=== PATIENT | male | born 1960 | race Caucasian/White ===

== ENCOUNTER → 2016-10-15 | Outpatient (REF) | payer MEDICARE ==
[2016-10-15 18:17] LABS: ALBUMIN 3.8 GM/DL (3.2-5.2); ALBUMIN/GLOBULIN RATIO 1.19 (1.00-1.93); ALKALINE PHOSPHATASE 95 U/L (45-117); ALT/SGPT 33 U/L (12-78); ANION GAP 9 MEQ/L (8-16); AST/SGOT 17 U/L (15-37); BILIRUBIN,TOTAL 0.5 MG/DL (0.2-1.0); BLOOD UREA NITROGEN 15 MG/DL (7-18); CALCIUM LEVEL 8.4 MG/DL (8.5-10.1); CARBON DIOXIDE LEVEL 30 MEQ/L (21-32); CHLORIDE LEVEL 99 MEQ/L (98-107); CHOLESTEROL LEVEL 231 MG/DL (<200); CREATININE FOR GFR 0.87 MG/DL (0.70-1.30); GLOMERULAR FILTRATION RATE > 60.0 (>56); GLUCOSE, FASTING 92 MG/DL (70-105); POTASSIUM SERUM 4.8 MEQ/L (3.5-5.1); SODIUM LEVEL 138 MEQ/L (136-145); TRIGLYCERIDES LEVEL 153 MG/DL (<150); URIC ACID 7.9 MG/DL (3.5-7.2)
[2016-10-15 19:42] LABS: MEAN CORPUSCULAR HEMOGLOBIN 36.3 pg (27.0-33.0); MEAN CORPUSCULAR HGB CONC 32.7 g/dl (32.0-36.5); MEAN CORPUSCULAR VOLUME 110.9 fl (80.0-96.0); RED CELL DISTRIBUTION WIDTH 13.6 % (11.5-14.5); WHITE BLOOD COUNT 7.3 K/mm3 (4.0-10.0)
== END ==
LOC: M SFHCCLAY 13:45
PROVIDERS: ATTEND Nurse Practitioner
DX: M79.675 Pain in left toe(s) (principal); Z79.899 Other long term (current) drug therapy

== ENCOUNTER → 2016-10-15 | Outpatient (CLI) | payer MEDICARE ==
[~2016-10-15] MED LIST: ALLO100T; AMLO5TAB2; LISI40TAB
--- NOTE | 2016-10-15 16:07 | REP ---
Left foot series: Four views: History: Pain in the left toes. No history of trauma. Findings: Four views left foot demonstrate overall normal mineralization. There is cortical irregularity across the mid shaft of the proximal phalanx of the 4th and similarly across the proximal phalanx of the 5th digits suggestive of old or healing fractures of these sites. No bony destructive lesion is seen. Bones, joints, and soft tissues are otherwise unremarkable. Impression: Findings consistent with healed or healing fractures of the proximal phalanges of the 4th and 5th digits. No other significant bony abnormality.
== END ==
LOC: M CLY 13:51
PROVIDERS: ATTEND Nurse Practitioner
DX: M79.675 Pain in left toe(s) (principal); Z79.899 Other long term (current) drug therapy
CPT/HCPCS: 73630; 80053; 80061; 84550; 85027; G0463

== ENCOUNTER → 2016-10-28 | Outpatient (REF) | payer MEDICARE ==
[2016-10-28 17:46] LABS: FOLATE 8.6 NG/ML (>5.4)
== END ==
LOC: M SFHCCAPE 07:10
PROVIDERS: ATTEND Nurse Practitioner
DX: R71.8 Other abnormality of red blood cells (principal); Z79.1 Long term (current) use of non-steroidal anti-inflammatories (NSAID); Z79.899 Other long term (current) drug therapy; Z87.898 Personal history of other specified conditions
CPT/HCPCS: 82306; 82375; 82607; 82668; 82728; 82746; 84425; G0463

== ENCOUNTER 2016-11-09 08:38 | Emergency (ER) | payer MEDICARE ==
[~2016-11-09] VITALS: Ht 188 cm; Wt 144.2 kg
[2016-11-09 08:56] VITALS: BP 128/83
[2016-11-09] MEDS ORDERED: LISI40TAB (09:10)
[2016-11-09] MEDS ORDERED: ALLO100T (09:10)
[2016-11-09] MEDS ORDERED: AMLO5TAB2 (09:10)
--- NOTE | 2016-11-09 10:12 | REP ---
LEFT FOOT SERIES: Four views. HISTORY: Trauma. FINDINGS: Four views of the left foot show overall normal mineralization. Periarticular soft tissues are unremarkable. No fracture seen. IMPRESSION: Negative left foot radiographs. Signed by Chuckie Jeffries MD 11/09/2016 12:17 P
--- NOTE | 2016-11-09 10:12 | REP ---
LEFT TIB/FIB SERIES: Four views. HISTORY: Trauma. FINDINGS: Four views of the left tibia and fibula demonstrate an obliquely oriented fracture through the proximal fibular diaphysis, nondisplaced. No tibial fracture is seen proximally or distally. There is osteoarthritis at the knee. IMPRESSION: 1. Proximal fibular diaphyseal fracture. 2. Knee joint osteoarthritis. Signed by Chuckie Jeffries MD 11/09/2016 12:17 P
--- NOTE | 2016-11-09 10:13 | REP ---
LEFT KNEE SERIES: Five views. HISTORY: Trauma. FINDINGS: Five views of the left knee demonstrate moderate osteoarthritis. Proximal fibular diaphyseal fracture is seen as reported on the TIB/fib study. No additional fracture is seen. There are ossific densities in the knee joint line posteriorly and anteriorly suspicious for loose bodies. IMPRESSION: Osteoarthritic changes moderate in degree with multiple probable loose bodies. No additional fracture seen. Signed by Chuckie Jeffries MD 11/09/2016 12:18 P
--- NOTE | 2016-11-09 11:04 | ED PDOC ---
Post-Departure Follow-Up AT THIS TIME, 2 PEOPLE IN THE ROOM WITH THE PT, FAMILY FRIENDS. CONCUR WITH PT THAT HE DOES HAVE A WALKER AT HOME DUE TO BALANCE PROBLEMS FROM HIS PRIOR TBI. THEY STATE THIS INJURY OCCURRED ON WEDNESDAY, 4 DAYS AGO, WHILE IN THE BATHROOM. PT STATES, "I REMEMBER NOW, I FELL GETTING OUT OF THE TUB." ALL IN AGREEMENT OF TREATMENT PLAN AT THIS TIME, WILL CALL ORTHO TODAY TO SCHEDULE FOLLOW UP. ALL IN AGREEMENT THAT USING THE KNEE IMMOBILIZER AND PT'S OWN WALKER IS THE SAFEST PLAN FOR HIS SYMPTOMS AT THIS TIME. CRUTCHES OR PLACING A SPLINT ON THIS LEG MAY CAUSE PT TO BE MORE UNSTEADY AND LEAD TO MORE FALLS/INJURIES. CANDIE LYN PA-C November 09, 2016 11:04
== END 2016-11-09 11:09 | disposition home or self-care (01) ==
LOC: M ED 10:22
DX: S82.102A Unspecified fracture of upper end of left tibia, initial encounter for closed fracture (principal); Z87.820 Personal history of traumatic brain injury; X58.XXXA Exposure to other specified factors, initial encounter; Y92.89 Other specified places as the place of occurrence of the external cause; Y93.89 Activity, other specified; Y99.9 Unspecified external cause status

== ENCOUNTER → 2016-11-24 | Outpatient (REF) | payer MEDICARE ==
[2016-11-25 11:46] LABS: ALBUMIN 3.9 GM/DL (3.2-5.2); ALBUMIN/GLOBULIN RATIO 1.34 (1.00-1.93); ALKALINE PHOSPHATASE 94 U/L (45-117); ALT/SGPT 31 U/L (12-78); ANION GAP 5 MEQ/L (8-16); AST/SGOT 21 U/L (15-37); BILIRUBIN,TOTAL 0.4 MG/DL (0.2-1.0); BLOOD UREA NITROGEN 19 MG/DL (7-18); CALCIUM LEVEL 9.2 MG/DL (8.5-10.1); CARBON DIOXIDE LEVEL 34 MEQ/L (21-32); CHLORIDE LEVEL 100 MEQ/L (98-107); CREATININE FOR GFR 0.83 MG/DL (0.70-1.30); GLOMERULAR FILTRATION RATE > 60.0 (>56); GLUCOSE, FASTING 94 MG/DL (70-105); POTASSIUM SERUM 4.8 MEQ/L (3.5-5.1); SODIUM LEVEL 139 MEQ/L (136-145); TOTAL PROTEIN 6.8 GM/DL (6.4-8.2); URIC ACID 5.6 MG/DL (3.5-7.2)
== END ==
LOC: M SFHCCLAY 13:45
PROVIDERS: ATTEND Nurse Practitioner
DX: M10.9 Gout, unspecified (principal)
CPT/HCPCS: 73564; 80053; 84550; G0463

== ENCOUNTER → 2016-11-24 | Outpatient (CLI) | payer MEDICARE ==
--- NOTE | 2016-11-24 15:02 | REP ---
LEFT KNEE, FIVE VIEWS: HISTORY: Pain. COMPARISON: 11/09/2016 There is an oblique nondisplaced fracture of the proximal fibula. There is no dislocation. There is narrowing of the joint spaces. Ossified densities are present in the knee joint space, likely representing loose bodies. IMPRESSION: 1. Nondisplaced fracture of the proximal fibula. 2. Degenerative change as described above.
== END ==
LOC: M CLY 14:06
PROVIDERS: ATTEND Nurse Practitioner
DX: S82.832A Other fracture of upper and lower end of left fibula, initial encounter for closed fracture (principal); M17.12 Unilateral primary osteoarthritis, left knee; X58.XXXA Exposure to other specified factors, initial encounter; Y92.9 Unspecified place or not applicable; Y93.9 Activity, unspecified; Y99.8 Other external cause status

== ENCOUNTER → 2017-03-02 | Outpatient (CLI) | payer MEDICARE ==
[2017-03-02 13:10] LABS: ALBUMIN 3.5 GM/DL (3.2-5.2); ALBUMIN/GLOBULIN RATIO 1.03 (1.00-1.93); ALKALINE PHOSPHATASE 98 U/L (45-117); ALT/SGPT 43 U/L (12-78); ANION GAP 10 MEQ/L (8-16); AST/SGOT 21 U/L (15-37); BILIRUBIN,TOTAL 0.5 MG/DL (0.2-1.0); BLOOD UREA NITROGEN 16 MG/DL (7-18); CALCIUM LEVEL 8.9 MG/DL (8.5-10.1); CARBON DIOXIDE LEVEL 30 MEQ/L (21-32); CHLORIDE LEVEL 99 MEQ/L (98-107); CREATININE FOR GFR 0.79 MG/DL (0.70-1.30); GLOMERULAR FILTRATION RATE > 60.0 (>56); GLUCOSE, FASTING 127 MG/DL (70-105); POTASSIUM SERUM 4.8 MEQ/L (3.5-5.1); SODIUM LEVEL 139 MEQ/L (136-145); TOTAL PROTEIN 6.9 GM/DL (6.4-8.2)
[2017-03-02 13:12] LABS: ADD MANUAL DIFFER YES; DIFF SLIDE NUMBER 232; MEAN CORPUSCULAR HEMOGLOBIN 36.8 pg (27.0-33.0); MEAN CORPUSCULAR HGB CONC 33.8 g/dl (32.0-36.5); MEAN CORPUSCULAR VOLUME 108.8 fl (80.0-96.0); PLATELET COUNT, AUTOMATED 212 k/mm3 (150-450); RED CELL DISTRIBUTION WIDTH 13.1 % (11.5-14.5); WHITE BLOOD COUNT 6.3 K/mm3 (4.0-10.0)
[2017-03-02 13:17] LABS: FOLATE 17.3 NG/ML (>5.4); VITAMIN B12 LEVEL 451 PG/ML (247-911)
[2017-03-02 14:40] LABS: EOSINOPHILS 1 % (0-5)
[2017-03-02 14:41] LABS: ANISOCYTOSIS 2+
[2017-03-02 15:06] LABS: ERYTHROCYTE SEDIMENTATION RATE 2 mm/hr (0-20)
[2017-03-04 14:24] LABS: ALBUMIN 3.93 GM/DL (3.29-5.55); ALBUMIN % 56.9 % (55.8-66.1); GAMMA GLOBULIN % 12.1 % (11.1-18.8)
[2017-03-05 08:07] LABS: SJOGREN'S ANTI SS-A <0.2 AI (0.0-0.9); SJOGREN'S ANTI SS-B <0.2 AI (0.0-0.9); VITAMIN E LEVEL 9.1 mg/L (5.3-17.5)
== END ==
LOC: M WUC 09:57
PROVIDERS: ATTEND Psychiatry & Neurology Neurology
DX: G62.9 Polyneuropathy, unspecified (principal); Z79.899 Other long term (current) drug therapy

== ENCOUNTER → 2017-03-29 | Outpatient (REF) | payer MEDICARE | LOC: M LAB REF 11:14 | PROVIDERS: ATTEND Neurological Surgery | DX: E66.9 Obesity, unspecified (principal) ==

== ENCOUNTER → 2017-08-23 | Outpatient (REF) | payer MEDICARE ==
[2017-08-23 16:40] LABS: BASO # 0.1 10^3/uL (0.0-0.2); BASO % 0.8 % (0.0-1.0); EOS # 0.2 10^3/uL (0.0-0.50); HEMATOCRIT 57.6 % (42.0-52.0); HEMOGLOBIN 18.9 g/dl (14.0-18.0); IMMATURE GRANULOCYTE % 0.3 % (0-3.0); LYMPH # 2.1 10^3/uL (1.5-4.5); LYMPH % 24.2 % (24.0-44.0); MEAN CORPUSCULAR HEMOGLOBIN 35.4 pg (27.0-33.0); MEAN CORPUSCULAR HGB CONC 32.8 g/dl (32.0-36.5); MEAN CORPUSCULAR VOLUME 107.9 fl (80.0-96.0); MONO # 0.6 10^3/uL (0.0-0.8); MONO % 6.4 % (0.0-5.0); NEUTROPHILS # 5.8 10^3/uL (1.8-7.7); NEUTROPHILS % 66.3 % (36.0-66.0); PLATELET COUNT, AUTOMATED 217 10^3/uL (150-450); RED BLOOD COUNT 5.34 10^6/uL (4.30-6.10); RED CELL DISTRIBUTION WIDTH 14.3 % (11.5-14.5); WHITE BLOOD COUNT 8.7 10^3/uL (4.0-10.0)
[2017-08-23 17:31] LABS: VITAMIN B12 LEVEL 295 PG/ML
[2017-08-23 17:33] LABS: FOLATE 11.5 NG/ML
[2017-08-23 17:35] LABS: ALBUMIN 3.4 GM/DL (3.2-5.2); ALKALINE PHOSPHATASE 80 U/L (45-117); ALT/SGPT 32 U/L (12-78); ANION GAP 7 MEQ/L (8-16); AST/SGOT 19 U/L (7-37); BILIRUBIN,TOTAL 0.3 MG/DL (0.2-1.0); BLOOD UREA NITROGEN 18 MG/DL (7-18); CALCIUM LEVEL 8.1 MG/DL (8.5-10.1); CARBON DIOXIDE LEVEL 32 MEQ/L (21-32); CHLORIDE LEVEL 98 MEQ/L (98-107); CHOLESTEROL LEVEL 184 MG/DL (<200); CHOLESTEROL RISK RATIO 4.181 (<5); CREATININE FOR GFR 0.88 MG/DL (0.70-1.30); GLOMERULAR FILTRATION RATE > 60.0 (>56); GLUCOSE, FASTING 169 MG/DL (70-100); HDL CHOLESTEROL 44 MG/DL (>40); LDL CHOLESTEROL 114.8 MG/DL (<100); MAGNESIUM LEVEL 1.7 MG/DL (1.8-2.4); NON-HDL-C 140 MG/DL; POTASSIUM SERUM 4.7 MEQ/L (3.5-5.1); SODIUM LEVEL 137 MEQ/L (136-145); TOTAL PROTEIN 6.8 GM/DL (6.4-8.2); TRIGLYCERIDES LEVEL 126 MG/DL (<150); URIC ACID 6.3 MG/DL (3.5-7.2)
== END ==
LOC: M SFHCCAPE 08:31
DX: I10 Essential (primary) hypertension (principal); E78.4 Other hyperlipidemia; M10.9 Gout, unspecified; Z87.898 Personal history of other specified conditions
CPT/HCPCS: 82746

== ENCOUNTER → 2017-09-02 | Outpatient (REF) | payer MEDICARE ==
[2017-09-02 18:06] LABS: ESTIMATED AVERAGE GLUCOSE 128 MG/DL (60-110); HEMOGLOBIN A1c 6.1 %
== END ==
LOC: M SFHCCAPE 08:48
DX: R73.01 Impaired fasting glucose (principal)
CPT/HCPCS: 83036

== ENCOUNTER → 2017-09-22 | Outpatient (REF) | payer MEDICARE ==
[2017-09-22 15:28] LABS: CARBOXYHEMOGLOBIN 6.2 % (0.0-1.5)
== END ==
LOC: M LAB REF 15:14
DX: D75.1 Secondary polycythemia (principal)
CPT/HCPCS: 82375

== ENCOUNTER → 2018-09-28 | Outpatient (REF) | payer MEDICARE ==
[~2018-09-28] MED LIST changes: -AMLO5TAB2; +AMLO5TAB6; +LISI40TA; -LISI40TAB; +SM M250T PO; +XARE20TA
== END ==
LOC: M SFHCCLAY 15:56
PROVIDERS: ATTEND Family Medicine
DX: D75.1 Secondary polycythemia (principal); I10 Essential (primary) hypertension; Z53.8 Procedure and treatment not carried out for other reasons

== ENCOUNTER → 2018-09-29 | Outpatient (REF) | payer MEDICARE ==
[~2018-09-29] MED LIST changes: -SM M250T PO
[2018-09-29 18:26] LABS: BASO # 0.1 10^3/uL (0.0-0.2); BASO % 0.6 % (0.0-1.0); EOS # 0.2 10^3/uL (0.0-0.50); HEMATOCRIT 63.1 % (42.0-52.0); LYMPH # 1.9 10^3/uL (1.5-4.5); LYMPH % 21.6 % (24.0-44.0); MEAN CORPUSCULAR HEMOGLOBIN 35.2 pg (27.0-33.0); MEAN CORPUSCULAR HGB CONC 32.2 g/dl (32.0-36.5); MEAN CORPUSCULAR VOLUME 109.5 fl (80.0-96.0); MONO # 0.6 10^3/uL (0.0-0.8); MONO % 7.2 % (0.0-5.0); NEUTROPHILS % 68.1 % (36.0-66.0); PLATELET COUNT, AUTOMATED 182 10^3/uL (150-450); RED BLOOD COUNT 5.76 10^6/uL (4.30-6.10); WHITE BLOOD COUNT 8.8 10^3/uL (4.0-10.0)
[2018-09-29 18:28] LABS: ALBUMIN 3.5 GM/DL (3.2-5.2); ALT/SGPT 27 U/L (12-78); BILIRUBIN,TOTAL 0.5 MG/DL (0.2-1.0); BLOOD UREA NITROGEN 19 MG/DL (7-18); CALCIUM LEVEL 8.5 MG/DL (8.5-10.1); CARBON DIOXIDE LEVEL 35 MEQ/L (21-32); CHLORIDE LEVEL 100 MEQ/L (98-107); CREATININE FOR GFR 0.97 MG/DL (0.70-1.30); GLOMERULAR FILTRATION RATE > 60.0 (>56); GLUCOSE, FASTING 111 MG/DL (70-100); POTASSIUM SERUM 4.8 MEQ/L (3.5-5.1); SODIUM LEVEL 138 MEQ/L (136-145); TOTAL PROTEIN 6.8 GM/DL (6.4-8.2)
[2018-09-29 18:51] LABS: HEMOGLOBIN 20.3 g/dl (13.5-17.5)
== END ==
LOC: M SFHCCLAY 11:16
PROVIDERS: ATTEND Family Medicine
DX: D75.1 Secondary polycythemia (principal); I10 Essential (primary) hypertension

== ENCOUNTER 2018-10-01 12:44 | Emergency (ER) | payer MEDICARE ==
[~2018-10-01] VITALS: Ht 188 cm; Wt 160.9 kg
[~2018-10-01 12:44] MED LIST changes: -XARE20TA
[2018-10-01 12:45] VITALS: BP 126/84
[2018-10-01] MEDS ORDERED: XARE20TA (13:01)
[2018-10-07] MEDS ORDERED: SM M250T PO (08:08)
== END 2018-10-01 13:31 | disposition left against medical advice (07) ==
LOC: M ED 12:44
DX: D75.1 Secondary polycythemia (principal); I10 Essential (primary) hypertension; I69.354 Hemiplegia and hemiparesis following cerebral infarction affecting left non-dominant side; Z87.891 Personal history of nicotine dependence; Z79.01 Long term (current) use of anticoagulants

== ENCOUNTER → 2018-11-11 | Outpatient (CLI) | payer MEDICARE ==
[~2018-11-11] MED LIST changes: +SM M250T PO; +XARE20TA
--- NOTE | 2018-11-11 16:14 | REP ---
Complete abdominal sonography: History: Polycythemia. Sonographic findings: Scanning through right upper quadrant of the abdomen demonstrates large immobile 2.0 cm gallstone in the neck of the gallbladder. The gallbladder wall is slightly thickened and echogenic. Common bile duct is normal measuring 0.4 cm in greatest diameter. Mild fatty infiltration of the liver is seen. There is no focal liver lesion. Limited views of the pancreas show no abnormality. A normal size spleen is noted measuring 11.1 cm in greatest diameter. No focal splenic lesion is seen. There is no evidence of ascites. Normal caliber aorta is seen. Renal cortical echogenicity pattern is normal and contours are smooth. The right kidney measures 13.3 x 7.1 x 7.1 cm. Left renal dimensions are 11.3 x 5.4 x 6.3 cm. Impression: Cholelithiasis. Large gallstone near the neck of the gallbladder. Mildly echogenic slightly thickened gallbladder wall. There is evidence of mild fatty infiltration of the liver. Otherwise negative. Electronically Signed by Chuckie Jeffries MD 11/11/2018 06:33 P
== END ==
LOC: M RAD 07:51
PROVIDERS: ATTEND Internal Medicine Hematology & Oncology
DX: K80.20 Calculus of gallbladder without cholecystitis without obstruction (principal)

== ENCOUNTER 2018-12-23 16:43 | Inpatient (IN) | payer MEDICARE ==
[~2018-12-23] VITALS: Ht 188 cm; Wt 144.0 kg
[~2018-12-23 16:43] MED LIST changes: -ALLO100T; +ALLO100T PO; -LISI40TA; +LISI40TA PO; -XARE20TA; +XARE20TA PO
[2018-12-23] MEDS ORDERED: POLY2.5S OU (16:57)
[2018-12-23] MEDS ORDERED: AMLO5TAB6 PO (16:57)
[2018-12-23] MEDS ORDERED: AMIL5TAB4 PO (16:57)
[2018-12-23] MEDS ORDERED: FUROSEMIDE 40 MG/4 ML VIAL (J1940) IV ONE (17:30)
[2018-12-23 17:36] LABS: BASO # 0.1 10^3/uL (0.0-0.2); BASO % 0.6 % (0.0-1.0); EOS % 0.3 % (0.0-3.0); HEMATOCRIT 52.2 % (42.0-52.0); LYMPH # 1.3 10^3/uL (1.5-4.5); LYMPH % 13.1 % (24.0-44.0); MEAN CORPUSCULAR HGB CONC 30.7 g/dl (32.0-36.5); MEAN CORPUSCULAR VOLUME 110.8 fl (80.0-96.0); MONO # 0.7 10^3/uL (0.0-0.8); MONO % 6.8 % (0.0-5.0); NEUTROPHILS # 7.6 10^3/uL (1.8-7.7); NEUTROPHILS % 78.9 % (36.0-66.0); PLATELET COUNT, AUTOMATED 247 10^3/uL (150-450); RED BLOOD COUNT 4.71 10^6/uL (4.30-6.10); WHITE BLOOD COUNT 9.7 10^3/uL (4.0-10.0)
[2018-12-23 17:47] LABS: INR 1.61; PROTHROMBIN TIME 18.9 SECONDS (11.8-14.0)
--- NOTE | 2018-12-23 17:50 | REP ---
Clinical: Cough and dyspnea. Comparison: 04/15/2007. Findings: Cardiomegaly is appreciated. Mild interstitial edema cannot be excluded. No focal consolidation or effusion. No pneumothorax. Skeletal structures intact. Impression: Cardiomegaly. Cannot exclude mild interstitial edema. No focal consolidation. Electronically Signed by Lorenzo Ronquillo MD 12/23/2018 05:42 P
[2018-12-23 18:29] LABS: ALBUMIN 2.9 GM/DL (3.2-5.2); ALT/SGPT 330 U/L (12-78); BILIRUBIN,DIRECT 0.2 MG/DL (0.0-0.2); BILIRUBIN,TOTAL 0.7 MG/DL (0.2-1.0); BLOOD UREA NITROGEN 34 MG/DL (7-18); CALCIUM LEVEL 7.9 MG/DL (8.5-10.1); CARBON DIOXIDE LEVEL 35 MEQ/L (21-32); CHLORIDE LEVEL 95 MEQ/L (98-107); CK-MB VALUE MASS 2.8 NG/ML (<3.6); CPK CREATINE PHOSPHOKINASE 162 U/L (39-308); CREATININE FOR GFR 1.58 MG/DL (0.70-1.30); GLOMERULAR FILTRATION RATE 48.5 (>56); GLUCOSE, FASTING 107 MG/DL (70-100); MB/CK RELATIVE INDEX 1.73 (< OR =4); NT-PRO BNP 2960 PG/ML (<125); POTASSIUM SERUM 6.6 MEQ/L (3.5-5.1); SODIUM LEVEL 132 MEQ/L (136-145); TROPONIN I 0.09 NG/ML (< 0.10)
[2018-12-23] MEDS ORDERED: CALCIUM GLUCONATE 1,000 MG in D5W MINI-BAG PLUS 100 ML IV ONE (21:00)
[2018-12-23] MEDS: POLYTRIM OPTH DROPS 10ML OU SCH (21:00)
[2018-12-23] MEDS ORDERED: IPRATROPIUM 0.5MG/ALBUTEROL 2.5MG INH SOL UD 3ML (DUONEB)(J7620) NEB PRN (21:15)
[2018-12-23] MEDS ORDERED: LOSA50TA88 PO (21:27)
[2018-12-23] MEDS ORDERED: MEROPENEM INJ 1 GM in APPROPRIATE DILUENT 1 EA IV SCH (21:45)
[2018-12-23] MEDS ORDERED: HEPARIN SOD (PORCINE) 5000 UNITS/ML VIAL SC SCH (21:45)
[2018-12-23] MEDS ORDERED: VANCOMYCIN HCL 1,000 MG, VIAL MATE ADAPTER 1 EACH in D5W 250 ML IV ONE (22:00)
--- NOTE | 2018-12-23 22:16 | HPEPDOC ---
[facility] Medical History & Physical Date of Admission Dec 23, 2018 Date of Service: Dec 23, 2018 History and Physical PCP: Harry CHIEF COMPLAINT: Shortness of breath HISTORY OF PRESENT ILLNESS: Patient is a 58-year-old man with a history of a TBI who presented with cyanosis. The patient at the time of my exam has some fairly garbled speech appears encephalopathic sleeping arousable to verbal stimuli but then quickly falling asleep again answering yes or no questions but otherwise not following specific commands and mostly incomprehensible speech. A provider for that this is the patient's baseline however I'm not so sure. As such wasn't history is obtained from a provider in review of the medical record. patient when asked specifically denies weight loss, hair loss, headache, visual changes, chest pain, nausea, vomiting, diarrhea, abdominal pain, muscle aches, worsening arthritis, change in mood]. He tells me he is feeling better at this time PAST MEDICAL HISTORY: 1. Obstructive sleep apnea and noncompliant with CPAP. 2. COPD. 3. Hepatitis C. 4. Tobacco abuse 6. Erectile dysfunction 7. Left lower extremity DVT on anticoagulation 8. TBI with residual ataxia 9. Hypertension 10. Alcohol abuse HOME MEDICATIONS: Please see below. ALLERGIES: Please see below PAST SURGICAL HISTORY: 1. Left knee surgery 2008. 2. Umbilical hernia. 3. Right rotator cuff surgery 4. Left rotator cuff surgery 5. Eye surgery for diplopia. SOCIAL HISTORY: Lives with: Unable to be obtained, Employment: Unable to be obtained, Tobacco use: Active smoker. ETOH: Active alcohol use, Illicit drug use: Unable to be obtained, Tattoos done unprofessionally: Unable to be obtained, CODE STATUS: For code no previous directives on file unable to be addressed at this time FAMILY HISTORY:Reviewed and noncontributory REVIEW OF SYSTEMS: 10 systems reviewed and negative other than HPI PHYSICAL EXAMINATION: VITAL SIGNS: Temperature 98.4, pulse 86, respiratory rate 26, blood pressure 143/81, pulse oximetry 91 % on 6 L nasal cannula GENERAL: Disheveled morbidly obese malodorous man sitting up in a stretcher disoriented providing yes or no answers not following commands appears tachypnic and lethargic] HEENT: Moist mucous membranes, difficult to assess for elevation in CVP secondary to body habitus CARDIOVASCULAR: S1 S2 regular no additional heart sounds appreciated, distant secondary to body habitus. RESPIRATORY: Bibasilar Rales prolonged expiratory phase no audible wheeze dista nt secondary to body habitus.] ABDOMINAL: Bowel sounds present abdomen soft and obese with pitting edema above the waist EXTREMITIES: Gross anasarca, chronic venous stasis changes pretibial hyperpigme ntation NEUROLOGICAL: Patient does not cooperate with testing PSYCHOLOGICAL: Unable to be tested LABORATORY DATA: See below. MICROBIOLOGY: Please see below. IMAGING: Chest x-ray:Cardiomegaly. Cannot exclude mild interstitial edema. No focal consolidation ASSESSMENT & PLAN: This is a 58-year-old man with acute on chronic hypercarbic respiratory failure. PROBLEMS: 1. Acute respiratory failure: Acute on chronic hypercarbic as well as an element of hypoxic. Unable to obtain detailed history at this time. Given his exam I certainly of concern for decompensated congestive heart failure. As such will be admitted to medical intensive care unit I will start him on BiPAP recheck arterial blood gas monitor him on telemetry trend his troponin. I spoke with Dr. Boyle of critical care for an inspector of dredging consultation. Help was greatly appreciated. Given his history of tobacco abuse who provided with nebulizer treatments I's less suspicion for decompensated COPD in the setting and as such we'll hold off on any steroids. I will monitor and trend his BNP. Hopefully catheter placed and begin aggressive IV diuresis and monitoring his renal function and electrolytes. Patient chronically anticoagulated no suspicion for PE at this time. He'll be nothing by mouth on BiPAP 2. Acute renal failure: Possibly secondary to a cardiorenal syndrome given his gross anasarca we'll begin aggressive diuresis send urine electrolytes check a renal ultrasound and reevaluate after diuresis. We'll check a UA with reflex urine culture and have a Finney catheter placed. I will hold his allopurinol as well as losartan 3. Hyperkalemia: We will hold his losartan possibly secondary to acute renal failure, I'll provide him with IV calcium gluconate check an EKG and provide aggressive diuresis and recheck his BMP within 6 hours monitor him on telemetry 4. Hypertension: I'm holding his losartan continue with amlodipine with holding parameters monitor in the medical intensive care unit 5. Lower extremity DVT: Continue with his Xarelto 6. Hepatitis C: Chronic and to do appear acutely worse at this time we'll check a liver ultrasound trend daily. May be secondary to hepatic congestion as well 7. Lower extremity wound: We'll cover with empiric vancomycin and ceftriaxone check a MRSA screen of the naris my suspicion for sepsis and CHF secondary to this is lower we'll check a pro-calcitonin. 8. Gout: Hold allopurinol the setting of acute renal failure 9. Obstructive sleep apnea: History of noncompliance 10. Polycythemia: Secondary to tobacco abuse as well as noncompliance with OSIRIS mild at this time 11. Macrocytosis will check folate and B12 level DVT PROPHYLAXIS: Xarelto DISPOSITION: Admitted to medical intensive care unit given his degree of respiratory failure prognosis is guarded Vital Signs Vital Signs Date Time Temp Pulse Resp B/P (MAP) Pulse Ox O2 Delivery O2 Flow Rate FiO2 12/23/18 21:08 97.8 12/23/18 20:51 92 60 12/23/18 20:45 89 19 NIPPV (BIPAP/CPAP) 12/23/18 20:30 141/72 (95) 12/23/18 20:00 15.0 Laboratory Data Labs 24H Laboratory Tests 2 12/23/18 17:23: Immature Granulocyte % (Auto) 0.3, White Blood Count 9.7, Red Blood Count 4.71, Hemoglobin 16.0, Hematocrit 52.2H, Mean Corpuscular Volume 110.8H, Mean Corpuscular Hemoglobin 34.0H, Mean Corpuscular Hemoglobin Concent 30.7L, Red Cell Distribution Width 14.5, Platelet Count 247, Neutrophils (%) (Auto) 78.9H, Lymphocytes (%) (Auto) 13.1L, Monocytes (%) (Auto) 6.8H, Eosinophils (%) (Auto) 0.3, Basophils (%) (Auto) 0.6, Neutrophils # (Auto) 7.6, Lymphocytes # (Auto) 1.3L, Monocytes # (Auto) 0.7, Eosinophils # (Auto) 0.0, Basophils # (Auto) 0.1, Nucleated Red Blood Cells % (auto) 0.4H, Prothrombin Time 18.9H, Prothromb Time International Ratio 1.61, Anion Gap 2L, Glomerular Filtration Rate 48.5L, Lactic Acid Level 1.6, Calcium Level 7.9L, Aspartate Amino Transf (AST/SGOT) 476H, Alanine Aminotransferase (ALT/SGPT) 330H, Alkaline Phosphatase 116, Total Bilirubin 0.7, Direct Bilirubin 0.2, Total Creatine Kinase 162, Creatine Kinase MB 2.8, Creatine Kinase MB Relative Index 1.73, Troponin I 0.09, QC-Gqz-S-Type Natriuretic Peptide 2960H, Total Protein 7.0, Albumin 2.9L, Albumin/Globulin Ratio 0.71L, Thyroid Stimulating Hormone (TSH) 3.040 12/23/18 17:49: POC pH (Misc Panel) 7.225*L, POC Base Excess (Misc Panel) 5.0H, POC Saturated Percent O2 (Misc) 88L, POC pO2 (Misc Panel) 68.0L, POC pCO2 (Misc Panel) 79.6*H, POC HCO3 (Misc Panel) 33.0H, POC Total CO2 (Misc Panel) 35.0H 12/23/18 20:43: POC pH (Misc Panel) 7.222*L, POC Base Excess (Misc Panel) 10.0H, POC Saturated Percent O2 (Misc) 91L, POC pO2 (Misc Panel) 78.0L, POC pCO2 (Misc Panel) 92.8*H, POC HCO3 (Misc Panel) 38.2H, POC Total CO2 (Misc Panel) 41.0H CBC/BMP Laboratory Tests 12/23/18 17:23 Red Blood Count 4.71, Mean Corpuscular Volume 110.8 H, Mean Corpuscular Hemoglobin 34.0 H, Mean Corpuscular Hemoglobin Concent 30.7 L, Red Cell Distri bution Width 14.5, Neutrophils (%) (Auto) 78.9 H, Lymphocytes (%) (Auto) 13.1 L, Monocytes (%) (Auto) 6.8 H, Eosinophils (%) (Auto) 0.3, Basophils (%) (Auto) 0.6, Neutrophils # (Auto) 7.6, Lymphocytes # (Auto) 1.3 L, Monocytes # (Auto) 0.7, Eosinophils # (Auto) 0.0, Basophils # (Auto) 0.1 Microbiology Microbiology 12/23/18 Blood Culture, Received Pending 12/23/18 Blood Culture, Received Pending Home Medications Scheduled Allopurinol (Allopurinol) 100 Mg Tab, 100 MG PO DAILY Amiloride HCl (Amiloride HCl) 5 Mg Tablet, 5 MG PO DAILY Amlodipine Besylate (Amlodipine Besylate) 5 Mg Tablet, 5 MG PO DAILY Losartan Potassium (Losartan Potassium) 50 Mg Tablet, 50 MG PO DAILY Magnesium (Magnesium) 250 Mg Tablet, 500 MG PO DAILY Polymyxin B Sulf/Trimethoprim (Polymyxin B-Tmp Eye Drops) 10 Ml Drops, 1 DROP OU QID Rivaroxaban (Xarelto) 20 Mg Tab, 20 MG PO DAILY Allergies Coded Allergies: No Known Allergies (Unverified , 10/07/18) A-FIB/CHADSVASC A-FIB History Current/History of A-Fib/PAF?: No SCOTT VALDES MD Dec 23, 2018 22:16
[2018-12-23 22:22] VITALS: BP 168/93
[2018-12-23 22:25] LABS: AMPHETAMINES LEVEL URINE NEGATIVE (NEGATIVE); BARBITURATES URINE NEGATIVE (NEGATIVE); BENZODIAZEPINES URINE NEGATIVE (NEGATIVE); CANNABINOIDS URINE NEGATIVE (NEGATIVE); COCAINE METABOLITE URINE NEGATIVE (NEGATIVE); METHADONE URINE NEGATIVE (NEGATIVE); OPIATES URINE NEGATIVE (NEGATIVE); PHENCYCLIDINE URINE NEGATIVE (NEGATIVE)
[2018-12-23 23:00] VITALS: BP 120/65
[2018-12-23 23:06] LABS: SODIUM,RANDOM URINE 34 MEQ/L
--- NOTE | 2018-12-23 23:11 | PHACANCOPD ---
PHARMACY VANCOMYCIN DOSING Pt Demographics Demographics Patient Age:58 , Weight:165.800 , Gender: male Adjusted Body Weight Date: 12/23/18, Adjusted Body Weight: [115.6] Kg Vancomycin Vancomycin indication: LE WOUND Vancomycin Target Ranges: 10-20 mcg/ml Vancomycin Load Y/N: Yes Load Dose Date Time Vancomycin Load Dose: 2 GM Date: 12/24 Time:12MID Vancomycin Dose Date: 12/23/18. Current Vancomycin Dose: [1 GM Q8H] Intermittent Dosing?: No Labs Labs Laboratory Tests 12/23/18 17:23 Red Blood Count 4.71, Mean Corpuscular Volume 110.8 H, Mean Corpuscular Hemoglobin 34.0 H, Mean Corpuscular Hemoglobin Concent 30.7 L, Red Cell Distribution Width 14.5, Neutrophils (%) (Auto) 78.9 H, Lymphocytes (%) (Auto) 13.1 L, Monocytes (%) (Auto) 6.8 H, Eosinophils (%) (Auto) 0.3, Basophils (%) (Auto) 0.6, Neutrophils # (Auto) 7.6, Lymphocytes # (Auto) 1.3 L, Monocytes # (Auto) 0.7, Eosinophils # (Auto) 0.0, Basophils # (Auto) 0.1 Micro Microbiology 12/23/18 Blood Culture, Received Pending 12/23/18 Blood Culture, Received Pending Creatinine Clearance Date:12/23/18. Creatinine Clearance: [85.3]. Assessment and Plan Maintaining Current Dose?: Yes Reason for dose change: No Dose Change Pharmacist Note Pharmacist Note Date: 12/23/18. Pharmacist note:58 YOM W/ LE WOUND.SCR =1.58,CRCL=85.3,SEQ=669.6KG. ORDERED CEFTRIAXONE 1 gm iv Q24H and Pharmacy dosed Vancomycin. Vanco 2 gram load administered 12/23 evening and will begin 1 gram IV Q8Hour regimen 12/24@0800. First trough is scheduled 12/24@2300(prior to the 4th dose)-will continue to monitor labs and make adjustments as needed [facility]ELSE[facility] Dec 23, 2018 23:11
[2018-12-23 23:50] LABS: ABG BASE EXCESS 5.4 (-2.0-2.0); ABG HCO3 37.7 MEQ/L (22.0-26.0); ABG O2 SATURATION 94.6 % (95.0-99.0); ABG PARTIAL PRESSURE CO2 97.8 mmHg (35.0-45.0); ABG PARTIAL PRESSURE O2 88.3 mmHg (75.0-100.0); ABG STANDARD HCO3 29.2 MEQ/L (22.0-26.0); ABG TOTAL CO2 40.7 MEQ/L (22.0-29.0); ABG pH (ARTERIAL) 7.204 UNITS (7.350-7.450)
[2018-12-23] MEDS: VANCOMYCIN HCL 1,000 MG, VIAL MATE ADAPTER 1 EACH in D5W 250 ML IV SCH (23:56)
[2018-12-23] MEDS: FUROSEMIDE 100 MG/10 ML VIAL (J1940) IV SCH (23:56)
[2018-12-23 23:58] LABS: ALBUMIN 2.9 GM/DL (3.2-5.2); BILIRUBIN,TOTAL 0.6 MG/DL (0.2-1.0); CALCIUM LEVEL 8.2 MG/DL (8.5-10.1); CREATININE FOR GFR 1.57 MG/DL (0.70-1.30); GLOMERULAR FILTRATION RATE 48.9 (>56); POTASSIUM SERUM 5.9 MEQ/L (3.5-5.1); TOTAL PROTEIN 7.4 GM/DL (6.4-8.2)
[2018-12-24] VITALS (43 sets, daily range): BP systolic 93–152; BP diastolic 53–77; O2SAT 83–93
[2018-12-24] MEDS: cefTRIAXone SOD 1 GM in D5W MINI-BAG PLUS 50 ML IV SCH ×2 (01:17→23:13)
[2018-12-24 01:55] LABS: ABG BASE EXCESS 6.9 (-2.0-2.0); ABG HCO3 39.2 MEQ/L (22.0-26.0); ABG O2 SATURATION 92.9 % (95.0-99.0); ABG PARTIAL PRESSURE CO2 97.7 mmHg (35.0-45.0); ABG PARTIAL PRESSURE O2 83.8 mmHg (75.0-100.0); ABG STANDARD HCO3 30.6 MEQ/L (22.0-26.0); ABG TOTAL CO2 42.2 MEQ/L (22.0-29.0); ABG pH (ARTERIAL) 7.221 UNITS (7.350-7.450)
[2018-12-24] MEDS ORDERED: SODIUM BICARBONATE 8.4% INJ 50 ML SYRINGE IV STA (02:04)
[2018-12-24] MEDS ORDERED: ETOMIDATE INJ 20MG/10ML VIAL IV STA ×2 (02:04→02:25)
[2018-12-24] MEDS ORDERED: MIDAZOLAM INJ 2 MG/2 ML VIAL (J2250) As Ordered ONE (02:12)
[2018-12-24] MEDS ORDERED: fentaNYL 100 MCG/2 ML INJECTION (J3010) As Ordered ONE (02:13)
[2018-12-24] MEDS ORDERED: fentaNYL 100 MCG/2 ML INJECTION (J3010) IV ONE (02:15)
[2018-12-24] MEDS ORDERED: MIDAZOLAM INJ 2 MG/2 ML VIAL (J2250) IV ONE (02:15)
[2018-12-24] MEDS ORDERED: PROPOFOL 1,000 MG/100 ML VIAL As Ordered ONE (02:31)
[2018-12-24] MEDS: methylPREDNISolone INJ 40 MG/1 ML VIAL (J2920) IV SCH ×3 (03:40→18:06)
[2018-12-24] MEDS: PROPOFOL 1,000 MG in APPROPRIATE DILUENT 1 EA IV SCH ×9 (03:45→23:14)
[2018-12-24 04:27] LABS: ABG BASE EXCESS 6.2 (-2.0-2.0); ABG HCO3 33.1 MEQ/L (22.0-26.0); ABG O2 SATURATION 93.5 % (95.0-99.0); ABG PARTIAL PRESSURE CO2 56.5 mmHg (35.0-45.0); ABG PARTIAL PRESSURE O2 70.9 mmHg (75.0-100.0); ABG STANDARD HCO3 29.9 MEQ/L (22.0-26.0); ABG TOTAL CO2 34.8 MEQ/L (22.0-29.0); ABG pH (ARTERIAL) 7.385 UNITS (7.350-7.450)
[2018-12-24] MEDS: IPRATROPIUM 0.5MG/ALBUTEROL 2.5MG INH SOL UD 3ML (DUONEB)(J7620) NEB SCH ×4 (04:28→20:27)
[2018-12-24 06:08] LABS: HEMOGLOBIN 15.2 g/dl (13.5-17.5); MEAN CORPUSCULAR HGB CONC 30.4 g/dl (32.0-36.5); MEAN CORPUSCULAR VOLUME 108.7 fl (80.0-96.0); PLATELET COUNT, AUTOMATED 208 10^3/uL (150-450); WHITE BLOOD COUNT 10.4 10^3/uL (4.0-10.0)
[2018-12-24 06:49] LABS: ALBUMIN 2.6 GM/DL (3.2-5.2); BILIRUBIN,TOTAL 0.8 MG/DL (0.2-1.0); CALCIUM LEVEL 7.8 MG/DL (8.5-10.1); CREATININE FOR GFR 1.39 MG/DL (0.70-1.30); GLOMERULAR FILTRATION RATE 56.3 (>56); POTASSIUM SERUM 4.5 MEQ/L (3.5-5.1); TOTAL PROTEIN 6.2 GM/DL (6.4-8.2)
[2018-12-24 06:59] LABS: INR 1.43; PROTHROMBIN TIME 17.2 SECONDS (11.8-14.0)
[2018-12-24 08:33] LABS: ETHYL ALCOHOL (ETHANOL) < 0.003 % (0.000-0.010)
[2018-12-24] MEDS: VANCOMYCIN HCL 1,000 MG, VIAL MATE ADAPTER 1 EACH in D5W 250 ML IV SCH ×2 (09:15→16:20)
[2018-12-24] MEDS: PANTOPRAZOLE 40MG INJ (PROTONIX) (C9113) IV SCH (09:15)
[2018-12-24] MEDS: FUROSEMIDE 100 MG/10 ML VIAL (J1940) IV SCH ×2 (09:15→16:20)
[2018-12-24] MEDS: amLODIPine 5 MG TAB PO SCH (09:16)
[2018-12-24] MEDS: RIVAROXABAN 20 MG TAB (XARELTO) PO SCH (09:16)
[2018-12-24] MEDS: CHLORHEXIDINE GLUCONATE 0.12 % 15ML UDC (PERIDEX ORAL RINSE) MT SCH ×2 (09:16→21:01)
[2018-12-24] MEDS: POLYTRIM OPTH DROPS 10ML OU SCH ×4 (09:20→21:01)
--- NOTE | 2018-12-24 15:01 | RO ---
DATE OF PROCEDURE: 12/24/2018 INDICATION: Hypoxemic and hypercarbic respiratory failure. PREPROCEDURE DIAGNOSIS: CHF exacerbation and respiratory failure. POSTPROCEDURE DIAGNOSIS: CHF exacerbation and respiratory failure. ATTENDING PHYSICIAN: Jocelyne Boyle MD CONSENT: Procedure was performed emergently and consent was implied given the emergent nature of the procedure. PROCEDURE SUMMARY: Time-out was performed. My hands were washed immediately prior to the procedure. The patient was placed on emt including continuous pulse oximetry. Patient received 25 mcg of fentanyl and 2 mg of Versed for a pre-intubation sedation. For intubation, the patient received 30 mg of etomidate. Using a GlideScope and a size 8 endotracheal tube with stylet the patient was intubated on the first pass attempt. The stylet was removed and the cuff balloon was inflated. Appropriate endotracheal tube position was confirmed by direct visualization of vocal cord passage, fogging of the tube, CO2 colorimetric indicator and symmetric breath sounds. The tube was secured at approximately 24 cm at the lips. Post-intubation chest x-ray is pending. [facility]
--- NOTE | 2018-12-24 15:01 | REP ---
Clinical: Status post intubation. Comparison: 12/23/2018. Findings: Endotracheal tube is approximately 2 cm above the bettina. Nasogastric tube courses below left hemidiaphragm. Stable cardiomegaly and findings to suggest pulmonary edema including left lower lobe opacification and pleural effusion. Impression: 1. Endotracheal tube and nasogastric tube as described above. 2. Cardiomegaly with CHF/pulmonary edema including left lower lobe opacity and effusion Electronically Signed by Lorenzo Ronquillo MD 12/24/2018 07:23 A
--- NOTE | 2018-12-24 15:01 | REP ---
Clinical: Hepatitis. Technique: Real time mckee scale ultrasound examination using curved array transducer. Findings: Examination is severely limited due to portable examination and patient's ventilatory assisted requirement. Diffuse fatty infiltration to the liver noted. The pancreas is incompletely evaluated due to interposed bowel gas but visualized portions appear normal. The gallbladder is contracted with multiple gallstones and associated posterior shadowing. No sonographic Mariscal's sign was elicited. No biliary ductal dilatation is noted and the common bile duct measures 3.0 mm diameter. Right kidney is normal in reniform shape without hydronephrosis and measures 15.2 x 6.0 x 6.8 cm. No ascites. Impression: 1. Hepatic steatosis. 2. Cholelithiasis. Electronically Signed by Lorenzo Ronquillo MD 12/24/2018 07:25 A
--- NOTE | 2018-12-24 15:01 | CR ---
DATE OF CONSULTATION: 12/23/2018 HISTORY OF PRESENT ILLNESS: History was obtained from the patient's chart and from other collateral information as the patient had altered mental status and was unable to provide a complete history. Mr. Lopez is a 58-year-old male with a past medical history of hypertension, hepatitis C, alcohol abuse, history of post traumatic brain injury (TBI), possible chronic obstructive pulmonary disease (COPD), history of obstructive sleep apnea (OSIRIS) noncompliant with C-PAP who presented initially with a complaint of increased facial swelling for the past week. The patient also appeared to be more lethargic with altered mental status. On admission to the emergency department (ED), he was noted to be hypoxic on room air, saturating 56%. He was placed initially on nasal cannula oxygen. The patient was titrated up to 6 liters per minute nasal cannula oxygen, but continued to have some episodes of desaturation and was then placed on a Venti mask at 50% FiO2. He continued to have some altered mental status with moaning and mumbling, and continued to be lethargic. He had an arterial blood gas (ABG) done, which showed evidence of acute hypoxemic respiratory failure and acute on chronic hypercarbic respiratory failure. He was then placed on BiPAP and admitted to the intensive care unit (ICU) for further management. The patient was given 40 mg IV Lasix in the emergency department (ED) and has not had a Finney catheter placed yet. PAST MEDICAL/SURGICAL HISTORY: 1. Transient ischemic attack (TIA) with residual ataxia and numbness left-sided. 2. Hypertension. 3. Hepatitis C. 4. Chronic obstructive pulmonary disease (COPD). 5. Alcohol abuse. 6. Obstructive sleep apnea, noncompliant with C-PAP. 7. Fracture in the right leg. 8. Right rotator cuff surgery. 9. Left tibial fracture. 10. Umbilical hernia repair. 11. Left rotator cuff surgery. FAMILY HISTORY: Father with history of renal failure. Mother with history of throat cancer. SOCIAL HISTORY: The patient is a former smoker, quit in 2018, was smoking for 44 years. He reports he has reported history of alcohol abuse and is currently drinking. HOME MEDICATIONS: - allopurinol - losartan - amlodipine - magnesium - Xarelto - amiloride DRUG ALLERGIES: No known allergies. PHYSICAL EXAMINATION: Temperature 97.8, pulse 89, respirations 19, blood pressure 141/72, oxygen saturation 94% on BiPAP at 60% FiO2. GENERAL: The patient is a morbidly obese male is sitting in the stretcher drowsy and lethargic. He is not oriented to place or time currently. Does respond to his name but is not able to converse. HEENT: Normocephalic, atraumatic. Pupils are reactive. He has some crusting around his eyes and appears to have some mild facial swelling. Neck is thick and supple. Unable to appreciate jugular venous distension (JVD)due to body habitus. CARDIOVASCULAR: Regular rate and rhythm. Normal S1, S2. Unable to appreciate murmurs. PULMONARY: Diminished breath sounds bilaterally with crackles. No wheezing noted or rhonchi. ABDOMEN: Obese, grossly anasarcic with pitting edema. The patient appears to have some tenderness to palpation diffusely in the abdomen but no guarding or rebound. EXTREMITIES: Pitting lower extremity edema bilaterally with evidence of chronic venous stasis changes. He does also have some increased erythema and warmth in the lower extremities and there is a superficial wound on his left mccain which is oozing serosanguineous discharge. LABORATORY DATA: White blood count (WBC) 9.7, hemoglobin 16.0, platelets 247. Chemistry: Sodium 132, potassium 6.6, chloride 95, bicarbonate 35, BUN 34, creatinine 1.58, glucose 107, lactic acid 1.6, troponin and CPK normal. BNP 2960. Arterial blood gas (ABG): 7.222, pCO2 of 92.8, pO2 of 78. Chest x-ray showed evidence of pulmonary vascular congestion and some atelectasis in the bases and likely small bilateral pleural effusions. ASSESSMENT/PLAN: Mr. Mackey is a 58-year-old male with a history of hypertension, hepatitis C, possible chronic obstructive pulmonary disease (COPD), obstructive sleep apnea (OSIRIS) noncompliant with C-PAP, history of polycythemia likely secondary to his chronic untreated obstructive sleep apnea (OSIRIS) and also likely OHS, given evidence of some chronic hypercarbic respiratory failure, who presented today with acute hypoxemic respiratory failure and acute on chronic hypercarbic respiratory failure. The patient appears to be grossly anasarcic and fluid overloaded on exam. His x-ray is also consistent with pulmonary edema. His BNP is also elevated. Patient likely with acute hypoxemic and acute on chronic hypercarbic respiratory failure in the setting of acute congestive heart failure (CHF) exacerbation. He does not have any leukocytosis or focal opacities to suggest pneumonia; and while he does have a possible history of chronic obstructive pulmonary disease (COPD), he does not have significant wheezing on exam currently to suggest an acute chronic obstructive pulmonary disease (COPD) exacerbation. Acute hypoxemic respiratory failure and acute on chronic hypercarbic respiratory failure secondary to congestive heart failure (CHF) exacerbation. - The patient was given Lasix in the emergency department (ED), 40 mg IV push. Will followup his urine output after a Finney catheter was placed; and if he does not have appropriate diuresis in the next hour or two, would given an additional 40 mg IV Lasix. - Continue to monitor his ins and outs with Finney catheter for net negative 1.5 liters goal. - Will place the patient on BiPAP with settings of 16/8 at 50% FiO2 with a respiratory rate of 15. Will follow up a repeat arterial blood gas (ABG) in 1 hour and adjust BiPAP settings as needed. If the patient's mental test status does not continue to improve with improvement in his hypercarbia or his ABG also is not improving with NIPPV, then would require intubation at that time. - Continue with DuoNebs every 6 hours. If the patient appears to have more wheezing, can start steroids at that time. - Would get an echocardiogram. Suspect he has a component of diastolic heart failure and also likely pulmonary hypertension due to his chronic untreated obstructive sleep apnea (OSIRIS). Hyperkalemia likely in the setting of congestive heart failure (CHF) exacerbation and mild hyponatremia also likely secondary to fluid overload. - Will followup his electrolytes after diuresis and continue to monitor. The patient has possible acute kidney injury (FRITZ) versus acute kidney injury (FRITZ) on chronic kidney disease (CKD). Continue to monitor his renal function, likely a component of cardiorenal and will improve with diuresis. -The patient likely has localized cellulitis in his lower extremities. Will start him on vancomycin and ceftriaxone. Will check a methicillin-resistant Staphylococcus aureus (MRSA) screen; and if negative, can discontinue the vancomycin at that time. - Will also check blood cultures and urine culture prior to antibiotics. Hx of Deep vein thrombosis (DVT), on xarelto Full code. Total critical care time spent, not including any procedures approximately one hour and 30 minutes MTDD
--- NOTE | 2018-12-24 15:02 | REP ---
Clinical: Acute renal failure. Technique: Real time mckee scale and color evaluation using curved array transducer. Findings: Right kidney is normal in contour, size, echogenicity, and reniform shape without hydronephrosis, nephrolithiasis, cystic or renal mass lesion and measures 14.9 x 6.1 x 7.7 cm. The left kidney is normal in contour, echogenicity, and reniform shape without hydronephrosis, nephrolithiasis, cystic or renal mass lesion and measures 10.9 x 5.4 x 6.6 cm with mildly thinned cortex. Finney catheter in collapsed bladder. Impression: Subtle asymmetry to the bilateral kidneys with findings to suggest my mild left renal atrophic change. No evidence for hydronephrosis bilaterally. Electronically Signed by Lorenzo Ronquillo MD 12/24/2018 09:18 A
--- NOTE | 2018-12-24 15:02 | CCN ---
DATE: 12/24/2018 Patient was seen and examined this morning during bedside rounds. Overnight, the patient was on BiPap for his acute hypoxemic and acute on chronic hypercarbic respiratory failure. His repeat ABG after being on BiPap with the setting of 16 over 8 and FIO2 of 60% showed a repeat ABG with continued respiratory acidosis. He was therefore, changed from BiPap to AVAPS mode for his noninvasive positive pressure ventilation and had a repeat ABG done on the AVAPS. On the AVAPS the patient continued to have persistent respiratory acidosis. No improvement in his hypercarbia. He had also been noted now to be desaturating requiring increasing FIO2 on his noninvasive positive pressure ventilation. Therefore, the decision was made at that time to intubate the patient. The patient was intubated using a GlideScope with a size 8 ET tube on the first pass attempt. Overnight patient was also started on Solu-Medrol for possible COPD exacerbation. This morning, patient's chest x-ray shows worsening of bilateral patchy opacities and there is some concern for ARDS. He has been diuresing well overnight with the Lasix. PHYSICAL EXAMINATION: Temperature 98.3, pulse 72, respirations 22, blood pressure 128/78, O2 sat 92% on 85% FiO2. In 528, out 2 liters, net negative 1.5 liters. General: The patient is morbidly obese, is lying in bed intubated and sedated. The patient is responsive to painful stimuli. HEENT: Normocephalic, atraumatic. Pupils are equal and reactive to light bilaterally. ET tube and OG tube is in place. Neck is supple. Unable to appreciate JVD due to body habitus. Cardiovascular: Regular rate and rhythm. Normal S1-S2. Unable to appreciate any murmurs. Pulmonary: Diminished breath sounds bilaterally with crackles at the bases. No wheezing or rhonchi noted. Abdomen: Obese, soft and does not appear tender to palpation. There is anasarca noted. Lower extremities: Bilateral pitting lower extremity edema and chronic venous stasis changes as well as increased erythema and warmth in the lower extremities with some oozing wounds in his left mccain area. LABORATORY DATA WBC 10.4, hemoglobin 15.2, platelets 208. Chemistry: Sodium 137, potassium 4.5, chloride 94, bicarb 36, BUN 33, creatinine 1.39 and glucose is 97. Repeat troponin is negative. Repeat BMP trending down slightly 1784. AST, ALT are trending down 321 and 301. ABG: pH 7.385, pCO2 of 56.5, pO2 of 70.9. IMAGING: Chest x-ray this morning shows ET tube in place. There is increase in bilateral fluffy opacities and likely small bilateral pleural effusions and possible component of pulmonary vascular congestion. ASSESSMENT AND PLAN: Mr. Mackey is a 58-year-old male with a past medical history of hypertension, hep C, chronic obstructive pulmonary disease (COPD), obstructive sleep apnea (OSIRIS), noncompliant with C-PAP who presented with acute hypoxemic respiratory failure and acute on chronic hypercarbic respiratory failure, likely in this setting of decompensated CHF given evidence of anasarca and elevated BNP on admission. The patient was placed on a noninvasive positive pressure ventilation overnight, but did not have improvement in his hypercarbic respiratory failure and had worsening of his hypoxia. The patient was therefore intubated overnight and placed on mechanical ventilation. His chest x-ray this morning appears to have increased bilateral fluffy opacities despite adequate diuresis suggesting a diagnosis of ARDS vs multifocal PNA. Acute on chronic hypercarbic respiratory failure and acute hypoxemic respiratory failure in the setting decompensated CHF and now acute respiratory distress syndrome (ARDS) vs multifocal PNA although patient has been on antibiotics and has not been febrile with no signifcant leukocytosis. The patient is intubated on PRVC mode. Will increase his PEEP for ARDS and attempt to wean down his FIO2 as tolerated. Continue with the current tidal volume a 500, which is appropriate for his ideal body weight and for ARDS and with a respiratory rate of 22. - Continue with sedation with propofol. Can give versed as needed for agitation and if patient is desynchronous on the ventilator. - Continue with daily ABGs and chest x-rays while intubated. - Continue with vent bundle care with head of bed elevation and chlorhexidine mouthwash. - Continue with diuresis with Lasix 60 mg IV every 6 hours and monitor his ins and outs and daily weights. - continue with Solu-Medrol 40 mg every 8 and DuoNebs every 6 for possible COPD exacerbation. - Troponins were negative times two. Will followup his echo. - Continue with amlodipine for hypertension. Acute renal failure, likely secondary to cardiorenal syndrome given his decompensated CHF. Creatinine is improving with diuresis. Will continue to monitor his creatinine. - Continue to monitor electrolytes and replete as needed. - Continue to hold allopurinol and losartan for now. - Will followup results of his renal ultrasound. Transaminitis, likely secondary to hepatic congestion from his decompensated heart failure. Suspect a component of right-sided heart failure and pulmonary hypertension given his chronic hypoxia from his untreated OSIRIS and possible COPD as evidenced by his chronic polycythemia. - Will followup his liver ultrasound and continue to trend his LFTs. - LFTs are improving. - also patient's friends report hx of heavy alcohol use, approx 12 shots of vodka daily so transaminitis may also be due to alcohol. will monitor for signs of alcohol withdrawal although patient is on propofol. ID- Lower extremity wound and cellulitis. Possible PNA although no fever and no significant leukocytosis. - Continue with vancomycin and ceftriaxone for now. Will followup results of blood cultures and procalcitonin. - Followup MRSA screen and if negative can likely discontinue vancomycin. - Will also check a sputum culture given the worsening x-ray findings. Pneumonia is possibly in the differential. History of deep venous thrombosis (DVT). - Continue with Xarelto. GI- OGT placed. Will start patient on tube feeds and increase as tolerated - GI ppx while intubated CODE STATUS: FULL CODE. HCP- patient has no close family, has an ex- and friends who both think they have [employer] care proxy forms they will try to find and bring in. Total critical care time spent not including any procedures approximately 45 minutes. MTDD
--- NOTE | 2018-12-24 20:25 | IPNPDOC ---
Subjective Date Seen The patient was seen on 12/24/18. Subjective Chief Complaint/HPI Mr. Mackey was intubated and ventilated and sedated when I saw him. I did speak to Dr. Bruno who reported that she had to increase the PEEP a little bit which leads to concerns about ARDS. Nursing reports he is becoming more agitated over time and they recently needed to start using midazolam as well as the propofol for sedation. The patient does have a history of intermittently heavy alcohol use and this could be contributing to the increased need for MARY blockade. General: Reports: ROS Unobtainable Objective Physical Examination General Exam: Negative: Alert (sedated on propofol drip with midazolam as needed) Eye Exam: Positive: Conjunctiva & lids normal; Negative: Sclera icteric ENT Exam: Positive: Other ENT (intubated) Neck Exam: Negative: Lymphadenopathy Chest Exam: Positive: Rales (crackles noted at the bilateral bases), Diminished; Negative: Wheezing Heart Exam: Positive: Rate Normal, Regular Rhythm, Normal S1, Normal S2; Negative: Murmurs Abdomen Exam: Positive: Normal bowel sounds, Soft; Negative: Tenderness Extremity Exam: Positive: Edema, Other (chronic venous stasis dermatitis) Neuro Exam: Positive: Other (intentionally sedated) Psych Exam: Negative: Mental status NL Assessment /Plan Problems (1) Acute on chronic respiratory failure with hypoxia and hypercapnia Status: Acute Discussed With: Newborn Photographer, Patient Problem Specific Plan: Monitor Clinically, Repeat Labs Problem Text: He is currently intubated and managed by pulmonary/critical care for this problem. (2) Acute congestive heart failure Status: Acute Problem Specific Plan: Monitor Clinically Problem Text: He certainly seems fluid overloaded, but interestingly enough a cardiac nuclear stress test from 12/13/18 done through [facility] wed normal ejection fraction (63%). We will work to carefully diurese him and monitor. (3) Acute respiratory distress syndrome (ARDS) Status: Acute Problem Text: Based on the increased pressure and FiO2 needed it seems that he likely has an element of ARDS. We'll defer this to pulmonology/critical care. (4) FRITZ (acute kidney injury) Status: Acute Response to Treatment: Improving Problem Specific Plan: Repeat Labs Problem Text: His baseline creatinine appears to be around 1. His renal function does seem to be slowly improving with diuresis. This would support a congestive heart failure theory even with recent normal testing. (5) Alcohol abuse Status: Chronic Problem Text: While is difficult to get a clear picture of this from the patient, it seems that he typically drinks at least 6 beers a day. This may explain why sedating and has been more difficult. (6) Cellulitis of left leg Status: Acute Problem Specific Plan: Monitor Clinically, Repeat Labs Problem Text: He is currently on ceftriaxone (as well as vancomycin). It is difficult to differentiate acute worsening of stasis dermatitis and cellulitis, however, there seems to have been evidence of warmth erythema and more drainage when he initially presented. (7) OSIRIS (obstructive sleep apnea) Status: Chronic Response to Treatment: Uncontrolled Problem Text: He has a known history of sleep apnea but is noncompliant with CPAP. 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 This was determined to be secondary to chronic hypoxia from his uncontrolled sleep apnea and likely his long history of smoking. From their note in October of this year it seems that they are targeting a hematocrit of around 54, although this is not a strict target. They certainly encourage phlebotomy if his hematocrit exceeds 60. (9) Traumatic brain injury Status: Chronic Problem Text: The patient is currently sedated. It is important for those caring for him to knows that he suffers from a traumatic brain injury and has generally been described as a crass person. Some of his behaviors that may be noted after he is brought out of sedation may be baseline rather than continued confusion. (10) History of DVT (deep vein thrombosis) Status: Chronic Problem Text: He has had at least 2 lower extremity DVTs in his life. Hematology had determined that lifelong anticoagulation was appropriate for him. He is currently anticoagulated with Xarelto. Plan/VTE VTE Prophylaxis Ordered?: Yes (on Xarelto) VS, I&O, 24H, Fishbone Vital Signs/I&O Vital Signs Date Time Temp Pulse Resp B/P (MAP) Pulse Ox O2 Delivery O2 Flow Rate FiO2 12/24/18 18:00 50 12/24/18 18:00 71 22 107/59 (75) 94 12/24/18 16:00 97.3 12/24/18 04:31 Ventilator 12/23/18 20:00 15.0 I&O- Last 24 Hours up to 6 AM 12/24/18 06:00 Intake Total 798 ml Output Total 2755 ml Balance -1957 ml Laboratory Data 24H LABS Laboratory Tests 2 12/23/18 20:43: POC pH (Misc Panel) 7.222*L, POC Base Excess (Misc Panel) 10.0H, POC Saturated Percent O2 (Misc) 91L, POC pO2 (Misc Panel) 78.0L, POC pCO2 (Misc Panel) 92.8*H, POC HCO3 (Misc Panel) 38.2H, POC Total CO2 (Misc Panel) 41.0H 12/23/18 21:47: Urine Color YELLOW, Urine Appearance HAZY, Urine pH 5.0, Urine Specific [place] 1.010, Urine Protein 1+H, Urine Glucose (UA) NEGATIVE, Urine Ketones NEGATIVE, Urine Blood NEGATIVE, Urine Nitrite NEGATIVE, Urine Bilirubin NEGATIVE, Urine Urobilinogen 2.0H, Urine Leukocyte Esterase NEGATIVE, Urine WBC (Auto) 1, Urine RBC (Auto) 0, Urine Hyaline Casts (Auto) 6, Urine Bacteria (Auto) NEGATIVE, Urine Squamous Epithelial Cells 0, Urine Amorphous Sediment SMALLH, Urine Mucus (Auto) SMALL, Urine Sperm (Auto) , Urine Random Creatinine 129.0, Urine Random Sodium 34, Urine Amphetamines Screen NEGATIVE, Urine Benzodiazepines Screen NEGATIVE, Urine Opiates Screen NEGATIVE, Urine Methadone Screen NEGATIVE, Urine Barbiturates Screen NEGATIVE, Urine Phencyclidine Screen NEGATIVE, Urine Cocaine Metabolite Screen NEGATIVE, Urine Cannabinoids Screen NEGATIVE 12/23/18 23:24: Anion Gap 2L, Glomerular Filtration Rate 48.9L, Blood Urea Nitrogen 35H, Creatinine 1.57H, Sodium Level 134L, Potassium Level 5.9H, Chloride Level 94L, Carbon Dioxide Level 38H, Calcium Level 8.2L, Aspartate Amino Transf (AST/SGOT) 382H, Alanine Aminotransferase (ALT/SGPT) 323H, Alkaline Phosphatase 115, Total Bilirubin 0.6, Total Protein 7.4, Albumin 2.9L, Troponin I 0.09, Albumin/Globulin Ratio 0.64L 12/23/18 23:45: Blood Gas Bicarbonate Standard 29.2H, Arterial Blood pH 7.204*L, Arterial Blood Partial Pressure CO2 97.8*H, Arterial Blood Partial Pressure O2 88.3, Arterial Blood Total CO2 40.7H, Arterial Blood HCO3 37.7H, Arterial Blood Base Excess 5.4H, Arterial Blood Oxygen Saturation 94.6L 12/24/18 01:49: Blood Gas Bicarbonate Standard 30.6H, Arterial Blood pH 7.221*L, Arterial Blood Partial Pressure CO2 97.7*H, Arterial Blood Partial Pressure O2 83.8, Arterial Blood Total CO2 42.2H, Arterial Blood HCO3 39.2H, Arterial Blood Base Excess 6.9H, Arterial Blood Oxygen Saturation 92.9L 12/24/18 04:22: Blood Gas Bicarbonate Standard 29.9H, Arterial Blood pH 7.385, Arterial Blood Pa rtial Pressure CO2 56.5H, Arterial Blood Partial Pressure O2 70.9L, Arterial Blood Total CO2 34.8H, Arterial Blood HCO3 33.1H, Arterial Blood Base Excess 6.2H, Arterial Blood Oxygen Saturation 93.5L 12/24/18 05:36: Nucleated Red Blood Cells % (auto) 0.4H, Prothrombin Time 17.2H, Prothromb Time International Ratio 1.43, Anion Gap 7L, Glomerular Filtration Rate 56.3, Blood Urea Nitrogen 33H, Creatinine 1.39H, Sodium Level 137, Potassium Level 4.5#, Chloride Level 94L, Carbon Dioxide Level 36H, Calcium Level 7.8L, Aspartate Amino Transf (AST/SGOT) 321H, Alanine Aminotransferase (ALT/SGPT) 301H, Alkaline Phosphatase 103, Total Bilirubin 0.8, Total Protein 6.2L, Albumin 2.6L, Troponin I 0.08, FO-Usb-X-Type Natriuretic Peptide 1784H, Albumin/Globulin Ratio 0.72L 12/24/18 12:50: Bedside Glucose (Misc Panel) 157H CBC/BMP Laboratory Tests 12/23/18 23:24 Calcium Level 8.2 L, Aspartate Amino Transf (AST/SGOT) 382 H, Alanine Aminotrans ferase (ALT/SGPT) 323 H, Alkaline Phosphatase 115, Total Bilirubin 0.6, Total Protein 7.4, Albumin 2.9 L 12/24/18 05:36 Calcium Level 7.8 L, Aspartate Amino Transf (AST/SGOT) 321 H, Alanine Aminotransferase (ALT/SGPT) 301 H, Alkaline Phosphatase 103, Total Bilirubin 0.8, Total Protein 6.2 L, Albumin 2.6 L, Red Blood Count 4.60, Mean Corpuscular Volume 108.7 H, Mean Corpuscular Hemoglobin 33.0, Mean Corpuscular Hemoglobin Concent 30.4 L, Red Cell Distribution Width 14.5 Microbiology Microbiology 12/23/18 Blood Culture - Preliminary, Resulted No growth after 24 hours . All specim... 12/23/18 Blood Culture - Preliminary, Resulted No growth after 24 hours . All specim... 12/24/18 Gram Stain - Final, Resulted 12/24/18 Sputum Culture, Resulted Pending 12/24/18 MRSA Screen, Received Pending Wilton Toussaint MD Dec 24, 2018 8:25 pm
[2018-12-24] MEDS: MIDAZOLAM INJ 2 MG/2 ML VIAL (J2250) IV PRN (21:01)
[2018-12-25] VITALS (32 sets, daily range): BP systolic 97–143; BP diastolic 54–86; O2SAT 94
--- NOTE | 2018-12-25 00:02 | PHACANCOPD ---
PHARMACY VANCOMYCIN DOSING Pt Demographics Demographics Patient Age:58 , Weight:166.800 , Gender: male Adjusted Body Weight Date: 12/23/18, Adjusted Body Weight: [115.6] Kg Vancomycin Vancomycin indication: LE WOUND Vancomycin Target Ranges: 10-20 mcg/ml Vancomycin Load Y/N: Yes Load Dose Date Time Vancomycin Load Dose: 2 GM Date: 12/24 Time:12MID Vancomycin Dose Date: 12/23/18. Current Vancomycin Dose: [1 GM Q8H] Intermittent Dosing?: No Labs Micro Microbiology 12/23/18 Blood Culture - Preliminary, Resulted No growth after 24 hours . All specim... 12/23/18 Blood Culture - Preliminary, Resulted No growth after 24 hours . All specim... 12/24/18 Gram Stain - Final, Resulted 12/24/18 Sputum Culture, Resulted Pending 12/24/18 MRSA Screen, Received Pending Creatinine Clearance Date:12/23/18. Creatinine Clearance: [85.3]. Assessment and Plan Maintaining Current Dose?: Yes Reason for dose change: No Dose Change Pharmacist Note Pharmacist Note Date: 12/24/18. Pharmacist note:Vancomycin trough drawn this evening@23:04 reported as 13.9,SCR=1.39 today,USOW=[id number].(trough goal= 10-20).Will continue with current Vancomycin regimen of 1 gram IV [id number].-Will continue to follow labs Date: 12/23/18. Pharmacist note:58 YOM W/ LE WOUND.SCR=1.58,CRCL=85.3,LYG=975.6KG. ORDERED CEFTRIAXONE 1 gm iv Q24H and Pharmacy dosed Vancomycin. Vanco 2 gram load administered 12/23 evening and will begin 1 gram IV Q8Hour regimen 12/24@0800. First trough is scheduled 12/24@2300(prior to the 4th dose)-will continue to monitor labs and make adjustments as needed [facility] Dec 25, 2018 00:02
[2018-12-25] MEDS: VANCOMYCIN HCL 1,000 MG, VIAL MATE ADAPTER 1 EACH in D5W 250 ML IV SCH ×2 (00:20→09:12)
[2018-12-25] MEDS: FUROSEMIDE 100 MG/10 ML VIAL (J1940) IV SCH ×4 (00:21→23:29)
[2018-12-25] MEDS: IPRATROPIUM 0.5MG/ALBUTEROL 2.5MG INH SOL UD 3ML (DUONEB)(J7620) NEB SCH ×4 (00:42→19:33)
[2018-12-25] MEDS: PROPOFOL 1,000 MG in APPROPRIATE DILUENT 1 EA IV SCH ×12 (00:53→22:20)
[2018-12-25] MEDS: methylPREDNISolone INJ 40 MG/1 ML VIAL (J2920) IV SCH ×2 (02:52→14:11)
[2018-12-25 04:28] LABS: HEMATOCRIT 47.8 % (42.0-52.0); HEMOGLOBIN 15.2 g/dl (13.5-17.5); MEAN CORPUSCULAR HEMOGLOBIN 33.5 pg (27.0-33.0); MEAN CORPUSCULAR HGB CONC 31.8 g/dl (32.0-36.5); MEAN CORPUSCULAR VOLUME 105.3 fl (80.0-96.0); PLATELET COUNT, AUTOMATED 215 10^3/uL (150-450); RED BLOOD COUNT 4.54 10^6/uL (4.30-6.10); WHITE BLOOD COUNT 8.1 10^3/uL (4.0-10.0)
[2018-12-25 04:57] LABS: ALBUMIN 2.6 GM/DL (3.2-5.2); BILIRUBIN,TOTAL 0.5 MG/DL (0.2-1.0); CALCIUM LEVEL 7.4 MG/DL (8.5-10.1); CREATININE FOR GFR 1.39 MG/DL (0.70-1.30); GLOMERULAR FILTRATION RATE 56.3 (>56); INR 1.73; POTASSIUM SERUM 4.2 MEQ/L (3.5-5.1); TOTAL PROTEIN 5.8 GM/DL (6.4-8.2)
[2018-12-25 05:49] LABS: ABG BASE EXCESS 9.8 (-2.0-2.0); ABG HCO3 35.2 MEQ/L (22.0-26.0); ABG O2 SATURATION 95.5 % (95.0-99.0); ABG PARTIAL PRESSURE CO2 49.1 mmHg (35.0-45.0); ABG PARTIAL PRESSURE O2 81.7 mmHg (75.0-100.0); ABG STANDARD HCO3 33.6 MEQ/L (22.0-26.0); ABG TOTAL CO2 36.7 MEQ/L (22.0-29.0); ABG pH (ARTERIAL) 7.473 UNITS (7.350-7.450)
--- NOTE | 2018-12-25 06:53 | ECHO ---
DATE OF PROCEDURE: 12/24/2018 DATE OF : 1960 AGE: 58 REFERRING PROVIDER: Dr. Jocelyne Boyle PATIENT LOCATION: Room 3207 REASON FOR THE ECHOCARDIOGRAM: Shortness of breath. 2-D MEASUREMENTS: IVS: 1.3 cm LV: 5.5 cm LVPW: 1.3 cm LA: 3.6 cm Aorta: 3.4 cm RV: 4.5 cm DOPPLER MEASUREMENTS: Peak velocity across the aortic valve: 1.4 m/s Peak velocity across the LVOT: 1.3 m/s Mitral E: 0.76, Mitral A: 0.64 with a ratio of 1.2 2-D COMMENTS: 1. Normal left ventricular size with mildly increased left ventricular wall thickness. Left ventricular systolic function is normal, estimated at 60-65%. 2. Normal left atrium. The right atrium and ventricle appeared to be a normal in limited views. 3. The atrial septum appeared to be normal without evidence of defect or shunt. 4. Normal aortic root. 5. Small pericardial effusion was noted, no evidence of cardiac tamponade. 6. Mildly calcified aortic valve with normal leaflet excursion. Mildly calcified mitral annulus with normal anterior mitral valve leaflet motion. Normal tricuspid valve and pulmonic valves. The proximal pulmonary artery branches also appeared to be normal. 7. The inferior vena cava subjectively appeared to be mildly enlarged. DOPPLER: No significant valvular abnormalities detected. IMPRESSION: 1. Normal global left ventricular systolic function with mild concentric left ventricular hypertrophy. 2. A small pericardial effusion was noted, no evidence of cardiac tamponade. 3. The inferior vena cava was mildly enlarged in limited views, central venous pressure might be elevated. MTDD
--- NOTE | 2018-12-25 07:26 | REP ---
Clinical: Status post intubation. Comparison: 12/24/2018. Findings: Endotracheal tube approximately 6.2 cm above the bettina. Nasogastric tube courses below left hemidiaphragm. Cardiomegaly is again appreciated. Perihilar and bibasilar opacities (left greater than right) and associated pleural effusions are suggested and similar to prior examination. Differential diagnosis includes multifocal pneumonia as well as pulmonary vascular congestion and elements of CHF/pulmonary edema. Impression: No significant change from prior examination. Continued evidence for suspected pulmonary vascular congestion with low lower lobe infiltrates and pleural effusions (left greater than right). Electronically Signed by Lorenzo Ronquillo MD 12/25/2018 07:17 A
[2018-12-25] MEDS: PANTOPRAZOLE 40MG INJ (PROTONIX) (C9113) IV SCH (09:12)
[2018-12-25] MEDS: CHLORHEXIDINE GLUCONATE 0.12 % 15ML UDC (PERIDEX ORAL RINSE) MT SCH ×2 (09:12→20:20)
[2018-12-25] MEDS: amLODIPine 5 MG TAB PO SCH (09:13)
[2018-12-25] MEDS: RIVAROXABAN 20 MG TAB (XARELTO) PO SCH (09:13)
[2018-12-25] MEDS: POLYTRIM OPTH DROPS 10ML OU SCH ×4 (09:13→20:20)
[2018-12-25] MEDS: MIDAZOLAM INJ 2 MG/2 ML VIAL (J2250) IV PRN ×6 (09:47→22:09)
--- NOTE | 2018-12-25 12:03 | CCN ---
DATE: 12/25/2018 CRITICAL CARE PROGRESS NOTE: The patient was seen and examined this morning during bedside rounds. The patient has remained intubated and sedated. He is minimally responsive currently to painful stimuli. He has not had any fevers or chills overnight. He has had very good diuresis with the Lasix. PHYSICAL EXAMINATION: Temperature 98.5, pulse 67, respirations 22, blood pressure 115/63, oxygen saturation 95% on 40% FiO2. Ins 2.1 liters, out 4.7 liters, net negative 2.6 liters. General: The patient is morbidly obese, is lying in bed intubated and sedated, is responsive to painful stimuli. HEENT is normocephalic, atraumatic. Pupils are equal, reactive to light bilaterally. Endotracheal tube (ET) tube and orogastric (OG) tube is in place. Neck is supple. Unable to appreciate jugular venous distention (JVD) body habitus. Cardiovascular: Regular rate and rhythm. Normal S1, S2. Unable to appreciate murmurs. Pulmonary: Decreased breath sounds bilaterally with crackles at bases. No wheezing or rhonchi noted. Abdomen is obese, soft, and nontender to palpation. There is improvement in the anasarca that was previously noted. Extremities: Bilateral improvement in the pitting lower extremity edema. Appears to have some wrinkling now in his lower extremities. There is chronic venous stasis changes bilaterally as well as a wound in his left mccain area. LABORATORY DATA: WBC 8.1, hemoglobin 15.2, platelets are 215. Chemistry: Sodium was 137, potassium 4.2, chloride 94, bicarbonate 38, BUN 36, creatinine 1.39, glucose is 168. BNP trending down to 593, procalcitonin 0.11. INR was 1.73. ABG: pH is 7.473, pCO2 of 49.1, pO2 of 81.7. IMAGING: Chest x-ray this morning shows ET tube somewhat high 6 cm above bettina. There are bilateral small pleural effusions and pulmonary vascular congestion and some bilateral opacities more in the lower lobes. Appears unchanged compared to previous x-ray. Renal ultrasound showed a mild left renal atrophy and no evidence of hydronephrosis. Liver ultrasound showed hepatic steatosis, evidence of gallstones but no biliary ductal dilation or evidence of acute cholecystitis. ASSESSMENT/PLAN: Mr. Mackey is a 58-year-old male with a history of hypertension, hepatitis C, chronic obstructive pulmonary disease (COPD), obstructive sleep apnea (OSIRIS) noncompliant with continuous positive airway pressure (CPAP) who presented with acute hypoxemic respiratory failure and acute on chronic hypercarbic respiratory failure likely in the setting of decompensated congestive heart failure (CHF). The patient was placed on noninvasive positive pressure ventilation but continued to have worsening hypoxemia and no improvement in his hypercarbic respiratory failure and so was intubated and placed on mechanical ventilation. There was some concern for possible acute respiratory distress syndrome (ARDS) given the worsening x-ray findings and worsening hypoxia. Multifocal pneumonia is also in the differential although patient was afebrile and did not have any significant leukocytosis or coughing. Acute on chronic hypercarbic respiratory failure and acute hypoxemic respiratory failure in the setting of decompensated CHF and also possible ARDS versus multifocal pneumonia. The patient is intubated on pressure regulated volume control (PRVC) mode. Will wean down his positive end-expiratory pressure (PEEP) and his FiO2 as tolerated. Will adjust his settings to be 500/20/10 and 50%. - Continue with daily chest x-rays and ABGs while intubated. - Continue with propofol for sedation and Versed every 1 hour as needed for agitation or vent dyssynchrony. - Will perform a sedation vacation tomorrow morning and assess the patient. - Continue with vent bundle care with head of bed elevation and chlorhexidine mouthwash. - Continue with diuresis with Lasix for his decompensated CHF. He has been net negative 2.6 liters in the past 24 hours. Will decrease his Lasix to 60 mg IV every 12 hours and continue to monitor his ins and outs. - Will taper the patient's Solu-Medrol to 40 mg every 12 hours and continue with DuoNebs every 6 hours for a possible COPD exacerbation, although less likely. - The patient's troponins were negative. His echo showed mild left ventricular hypertrophy (LVH) with a normal ejection fraction (EF). He had a small pericardial effusion but no evidence of tamponade. His inferior vena cava (IVC) was also mildly enlarged consistent with fluid overload. Acute renal failure likely cardiorenal given his decompensated CHF. Creatinine was improving with diuresis. - Continue to monitor his electrolytes and replete as needed. - Continue to monitor his renal function and input and outputs. - The patient's renal ultrasound showed some mild left renal atrophy with no evidence of hydronephrosis. - Continue to hold allopurinol and his losartan for now. Transaminitis likely secondary to hepatic congestion from his decompensated heart failure. May also be secondary to his history of heavy alcohol use. The patient reportedly drinks 12 shots of vodka daily. - Continue to trend to his liver function tests (LFTs). They are improving. His liver ultrasound shows evidence of hepatic steatosis and some gallstones but no acute cholecystitis. - Continue to monitor for signs of alcohol withdrawal. The patient is on propofol but can also give Versed as needed for agitation. ID: The patient has possible lower extremity wound and cellulitis. Pneumonia is also possible given his x-ray findings, although he had no fever and no significant leukocytosis. His sputum culture gram stain was negative but will followup the final results. - Methicillin-resistant Staphylococcus aureus (MRSA) screen was negative. Will discontinue vancomycin and continue with ceftriaxone for now. - The patient's procalcitonin was 0.11 suggesting a pneumonia is less likely. Can continue ceftriaxone for his possible cellulitis but may de-escalate to oral antibiotics. Gastrointestinal (GI): OG tube is placed and the patient was started on tube feeds. Will increase as tolerated. GI prophylaxis while intubated. History of deep venous thrombosis (DVT). Continue with Xarelto. Code status: FULL CODE. Healthcare proxy. The patient has no close family, has an ex- and friend who may be the healthcare proxies. Will attempt to get help the healthcare proxy from [facility]. Total critical care time spent not including procedures approximately 40 minutes. MTDD
[2018-12-25] MEDS: cefTRIAXone SOD 1 GM in D5W MINI-BAG PLUS 50 ML IV SCH (22:28)
--- NOTE | 2018-12-25 23:55 | IPNPDOC ---
Subjective Date Seen The patient was seen on 12/25/18. Subjective Chief Complaint/HPI Mr. Mackey was intubated and ventilated and sedated at the time of my evaluation. It is noteworthy that he was -2600 mL over the last [address] Boyle reports that she has been able to decrease his PEEP and also his FiO2. General: Reports: ROS Unobtainable Objective Physical Examination General Exam: Negative: Alert (sedated on propofol drip with midazolam as needed) Eye Exam: Positive: Conjunctiva & lids normal; Negative: Sclera icteric ENT Exam: Positive: Other ENT (intubated with both ET and OG tubes) Neck Exam: Positive: Other (thick); Negative: Lymphadenopathy Chest Exam: Positive: Rales (crackles noted at the bilateral bases, diminished from yesterday), Diminished; Negative: Wheezing Heart Exam: Positive: Rate Normal, Regular Rhythm, Normal S1, Normal S2; Negative: Murmurs Abdomen Exam: Positive: Normal bowel sounds, Soft; Negative: Tenderness Extremity Exam: Positive: Edema (improved from yesterday), Other (chronic venous stasis dermatitis) Skin Exam: Positive: Lesion (the open lesion on his left anterior tibial area is much more dry) Neuro Exam: Positive: Other (intentionally sedated) Psych Exam: Negative: Mental status NL Assessment /Plan Problems (1) Acute on chronic respiratory failure with hypoxia and hypercapnia Status: Acute Discussed With: Champagne Maker, Patient Problem Specific Plan: Monitor Clinically, Repeat Labs Problem Text: He is currently intubated and managed by pulmonary/critical care for this problem. Per the reports he seems to making slow progress toward recov ghislaine. (2) Acute congestive heart failure Status: Acute Problem Specific Plan: Monitor Clinically Problem Text: Decompensated but improving. He seems to be doing much better now that he is -2.6 L. We will continue to carefully diurese him. Echocardiogram continues to show normal left ventricular systolic function. A cardiac nuclear stress test from 12/13/18 done through [facility] showed normal ejection fraction (63%). (3) Acute respiratory distress syndrome (ARDS) Status: Acute Response to Treatment: Improving Discussed With: Champagne Maker Problem Text: Based on the increased pressure and FiO2 needed it seems that he likely has an element of ARDS. We'll defer this to pulmonology/critical care. (4) FRITZ (acute kidney injury) Status: Acute Response to Treatment: Improving Problem Specific Plan: Repeat Labs Problem Text: His creatinine and GFR are (interestingly) precisely the same as yesterday's. He has been responding well to diuresis. We'll continue the current regimen and monitor. His baseline creatinine appears to be around 1. (5) Alcohol abuse Status: Chronic Problem Text: While it has been difficult to get a clear picture of this from the patient, review of his chart seems that he typically drinks at least 6 beers a day. This may explain why sedating and has been more difficult. We should consider using the CIWA scale once he is extubated and no longer sedated. (6) Cellulitis of left leg Status: Acute Problem Specific Plan: Monitor Clinically, Repeat Labs Problem Text: He is currently on ceftriaxone (as well as vancomycin). He seems to be responding well. If he does not need treatment of for a respiratory infection we can probably drop the vancomycin and continue just the ceftriaxone. (7) OSIRIS (obstructive sleep apnea) Status: Chronic Response to Treatment: Uncontrolled Problem Text: He has a known history of sleep apnea but is noncompliant with CPAP. 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 This was determined to be secondary to chronic hypoxia from his uncontrolled sleep apnea and likely his long history of smoking. From their note in October of this year it seems that they are targeting a hematocrit of around 54, although this is not a strict target. They certainly encourage phlebotomy if his hematocrit exceeds 60. (9) Traumatic brain injury Status: Chronic Problem Text: The patient is currently sedated. It is important for those caring for him to knows that he suffers from a traumatic brain injury and has generally been described as a crass person. Some of his behaviors that may be noted after he is brought out of sedation may be baseline rather than continued confusion. (10) History of DVT (deep vein thrombosis) Status: Chronic Problem Text: He has had at least 2 lower extremity DVTs in his life. Hematology had determined that lifelong anticoagulation was appropriate for him. He is currently anticoagulated with Xarelto. Plan/VTE VTE Prophylaxis Ordered?: Yes (on Xarelto) VS, I&O, 24H, Fishbone Vital Signs/I&O Vital Signs Date Time Temp Pulse Resp B/P (MAP) Pulse Ox O2 Delivery O2 Flow Rate FiO2 12/25/18 23:00 85 20 116/64 (81) 96 50 12/25/18 20:39 Ventilator 12/25/18 20:00 97.6 12/23/18 20:00 15.0 I&O- Last 24 Hours up to 6 AM 12/25/18 05:59 Intake Total 2329.1 ml Output Total 3645 ml Balance -1315.9 ml Laboratory Data 24H LABS Laboratory Tests 2 12/25/18 04:13: Nucleated Red Blood Cells % (auto) 0.0, Prothrombin Time 20.0H, Prothromb Time International Ratio 1.73, Anion Gap 5L, Glomerular Filtration Rate 56.3, Blood Urea Nitrogen 36H, Creatinine 1.39H, Sodium Level 137, Potassium Level 4.2, Chloride Level 94L, Carbon Dioxide Level 38H, Calcium Level 7.4L, Aspartate Amino Transf (AST/SGOT) 158H, Alanine Aminotransferase (ALT/SGPT) 310H, Alkaline Phosphatase 86, Total Bilirubin 0.5, Total Protein 5.8L, Albumin 2.6L, [id number]-Type Natriuretic Peptide 593H, Albumin/Globulin Ratio 0.81L 12/25/18 05:34: Blood Gas Bicarbonate Standard 33.6H, Arterial Blood pH 7.473H, Arterial Blood Partial Pressure CO2 49.1H, Arterial Blood Partial Pressure O2 81.7, Arterial Blood Total CO2 36.7H, Arterial Blood HCO3 35.2H, Arterial Blood Base Excess 9.8H, Arterial Blood Oxygen Saturation 95.5 12/25/18 11:51: Bedside Glucose (Misc Panel) 168H CBC/BMP Laboratory Tests 12/25/18 04:13 Red Blood Count 4.54, Mean Corpuscular Volume 105.3 H, Mean Corpuscular Hemoglobin 33.5 H, Mean Corpuscular Hemoglobin Concent 31.8 L, Red Cell Distribution Width 14.3, Calcium Level 7.4 L, Aspartate Amino Transf (AST/SGOT) 158 H, Alanine Aminotransferase (ALT/SGPT) 310 H, Alkaline Phosphatase 86, Total Bilirubin 0.5, Total Protein 5.8 L, Albumin 2.6 L Microbiology Microbiology 12/23/18 Blood Culture - Preliminary, Resulted No Growth after 48 hours. All Specime... 12/23/18 Blood Culture - Preliminary, Resulted No Growth after 48 hours. All Specime... 12/24/18 Gram Stain - Final, Resulted 12/24/18 Sputum Culture, Resulted Pending 12/24/18 MRSA Screen - Final, Complete Wilton Toussaint MD Dec 25, 2018 11:55 pm
[2018-12-26] VITALS (25 sets, daily range): BP systolic 104–147; BP diastolic 55–80
--- NOTE | 2018-12-26 01:14 | ECGEPIP ---
[facility] Test Date: 2018-12-23 Pat Name: JENNIFER JOHNSON Department: Room: [place] [address] Gender: Male Bait Tier: ELIJAH : 1960 Requested By: SCOTT VALDES Order Number: [id number] Reading MD: Ilia Parham Measurements Intervals Bowman Rate: 84 P: 41 AK: 178 QRS: 116 QRSD: 121 T: 1 QT: 386 QTc: 459 Interpretive Statements SINUS RHYTHM POSSIBLE RIGHT VENTRICULAR HYPERTROPHY RIGHT AXIS DEVIATION ST DEVIATION AND MODERATE T-WAVE ABNORMALITY, CONSIDER ANTERIOR ISCHEMIA No remarkable changes but slower heart rate Last tracing on 12/24/2018 AT 5:05 P.M. Electronically Signed on 12-26-2018 1:14:22 EDT by Ilia Parham
[2018-12-26] MEDS: PROPOFOL 1,000 MG in APPROPRIATE DILUENT 1 EA IV SCH ×11 (01:50→20:06)
[2018-12-26] MEDS: IPRATROPIUM 0.5MG/ALBUTEROL 2.5MG INH SOL UD 3ML (DUONEB)(J7620) NEB SCH ×4 (01:54→19:27)
[2018-12-26] MEDS: methylPREDNISolone INJ 40 MG/1 ML VIAL (J2920) IV SCH (02:31)
[2018-12-26 05:11] LABS: HEMATOCRIT 48.7 % (42.0-52.0); HEMOGLOBIN 15.5 g/dl (13.5-17.5); MEAN CORPUSCULAR HEMOGLOBIN 33.2 pg (27.0-33.0); MEAN CORPUSCULAR HGB CONC 31.8 g/dl (32.0-36.5); MEAN CORPUSCULAR VOLUME 104.3 fl (80.0-96.0); PLATELET COUNT, AUTOMATED 243 10^3/uL (150-450); RED BLOOD COUNT 4.67 10^6/uL (4.30-6.10); WHITE BLOOD COUNT 9.9 10^3/uL (4.0-10.0)
[2018-12-26 05:22] LABS: INR 1.46; PROTHROMBIN TIME 17.5 SECONDS (11.8-14.0)
[2018-12-26 05:26] LABS: ABG O2 SATURATION 96.4 % (95.0-99.0); ABG PARTIAL PRESSURE CO2 52.7 mmHg (35.0-45.0); ABG PARTIAL PRESSURE O2 85.1 mmHg (75.0-100.0); ABG STANDARD HCO3 33.7 MEQ/L (22.0-26.0); ABG TOTAL CO2 37.6 MEQ/L (22.0-29.0); ABG pH (ARTERIAL) 7.452 UNITS (7.350-7.450)
[2018-12-26 05:37] LABS: ALBUMIN 2.6 GM/DL (3.2-5.2); BILIRUBIN,TOTAL 0.3 MG/DL (0.2-1.0); CALCIUM LEVEL 7.7 MG/DL (8.5-10.1); CREATININE FOR GFR 1.39 MG/DL (0.70-1.30); GLOMERULAR FILTRATION RATE 56.3 (>56); POTASSIUM SERUM 4.3 MEQ/L (3.5-5.1); TOTAL PROTEIN 6.6 GM/DL (6.4-8.2)
--- NOTE | 2018-12-26 08:18 | REP ---
Clinical: Intubation. Comparison: 12/25/2018. Findings: Endotracheal tube 3.5 cm above the bettina. Nasogastric tube courses below left hemidiaphragm. Stable cardiomegaly along with increased pulmonary vascular markings, cephalization, and bibasilar opacities with suspected layering effusions are essentially unchanged. Impression: 1. Lines and tubes in satisfactory position. 2. Cardiomegaly and findings to suggest CHF/pulmonary edema. Differential diagnosis includes multifocal pneumonia and findings remain relatively stable. Electronically Signed by Lorenzo Ronquillo MD 12/26/2018 08:09 A
[2018-12-26] MEDS: RIVAROXABAN 20 MG TAB (XARELTO) PO SCH (08:49)
[2018-12-26] MEDS: CHLORHEXIDINE GLUCONATE 0.12 % 15ML UDC (PERIDEX ORAL RINSE) MT SCH ×2 (08:49→20:06)
[2018-12-26] MEDS: PANTOPRAZOLE 40MG INJ (PROTONIX) (C9113) IV SCH (08:50)
[2018-12-26] MEDS: POLYTRIM OPTH DROPS 10ML OU SCH ×4 (08:50→20:06)
[2018-12-26] MEDS: amLODIPine 5 MG TAB PO SCH (08:51)
[2018-12-26] MEDS: MIDAZOLAM INJ 2 MG/2 ML VIAL (J2250) IV PRN (09:28)
--- NOTE | 2018-12-26 10:26 | IPNPDOC ---
Subjective Date Seen The patient was seen on 12/26/18. Subjective Chief Complaint/HPI respiratory failure with hypoxia and hypercapnia Events since last encounter Patient remains intubated. Currently with TF at 45 cc per hour for nutrition. Potential for extubation 12/27/18. ICU attending, Dr. Boyle, managing. General: Reports: ROS Unobtainable Objective Physical Examination General Exam: Negative: Alert (sedated on propofol drip with midazolam as needed) Eye Exam: Positive: Conjunctiva & lids normal; Negative: Sclera icteric ENT Exam: Positive: Other ENT (intubated with both ET and OG tubes) Neck Exam: Positive: Other (thick); Negative: Lymphadenopathy Chest Exam: Positive: Diminished (bibasilar); Negative: Wheezing Heart Exam: Positive: Rate Normal, Regular Rhythm, Normal S1, Normal S2; Negative: Murmurs Abdomen Exam: Positive: Normal bowel sounds, Soft; Negative: Tenderness Extremity Exam: Positive: Edema (BLE), Other (chronic venous stasis dermatitis) Skin Exam: Positive: Lesion (the open lesion on his left anterior tibial area is much more dry) Neuro Exam: Positive: Other (intentionally sedated) Psych Exam: Negative: Mental status NL Assessment /Plan Assessment Patient seen, agree with note. Plan this afternoon still remains to extubate to Bipap tomorrow. Patient diuresing. -- CDT Problems (1) Acute on chronic respiratory failure with hypoxia and hypercapnia Status: Acute Discussed With: Product Management Specialist, Patient Problem Specific Plan: Monitor Clinically, Repeat Labs Problem Text: He is currently intubated and managed by pulmonary/critical care for this problem. Per the reports he seems to making slow progress toward recovery. (2) Acute congestive heart failure Status: Acute Problem Specific Plan: Monitor Clinically Problem Text: Decompensated but improving. He seems to be doing much better now that he is -2.6 L. We will continue to carefully diurese him. Echocardiogram continues to show normal left ventricular systolic function. A cardiac nuclear stress test from 12/13/18 done through [facility] showed normal ejection fraction (63%). (3) Acute respiratory distress syndrome (ARDS) Status: Acute Response to Treatment: Improving Discussed With: Product Management Specialist Problem Text: Based on the increased pressure and FiO2 needed it seems that he likely has an element of ARDS. We'll defer this to pulmonology/critical care. (4) FRITZ (acute kidney injury) Status: Resolved Response to Treatment: Improving Problem Specific Plan: Repeat Labs Problem Text: His creatinine and GFR are (interestingly) precisely the same as yesterday's. He has been responding well to diuresis. We'll continue the current regimen and monitor. His baseline creatinine appears to be around 1. (5) Alcohol abuse Status: Chronic Problem Text: While it has been difficult to get a clear picture of this from the patient, review of his chart seems that he typically drinks at least 6 beers a day. This may explain why sedating and has been more difficult. We should consider using the CIWA scale once he is extubated and no longer sedated. (6) Cellulitis of left leg Status: Acute Problem Specific Plan: Monitor Clinically, Repeat Labs Problem Text: He is currently on ceftriaxone (as well as vancomycin). He seems to be responding well. If he does not need treatment of for a respiratory infection we can probably drop the vancomycin and continue just the ceftriaxone. (7) OSIRIS (obstructive sleep apnea) Status: Chronic Response to Treatment: Uncontrolled Problem Text: He has a known history of sleep apnea but is noncompliant with CPAP. 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 This was determined to be secondary to chronic hypoxia from his uncontrolled sleep apnea and likely his long history of smoking. From their note in October of this year it seems that they are targeting a hematocrit of around 54, although this is not a strict target. They certainly encourage phlebotomy if his hematocrit exceeds 60. (9) Traumatic brain injury Status: Chronic Problem Text: The patient is currently sedated. It is important for those caring for him to knows that he suffers from a traumatic brain injury and has generally been described as a crass person. Some of his behaviors that may be noted after he is brought out of sedation may be baseline rather than continued confusion. (10) History of DVT (deep vein thrombosis) Status: Chronic Problem Text: He has had at least 2 lower extremity DVTs in his life. Hem atology had determined that lifelong anticoagulation was appropriate for him. He is currently anticoagulated with Xarelto. Plan/VTE VTE Prophylaxis Ordered?: Yes (on Xarelto) VS, I&O, 24H, Fishbone Vital Signs/I&O Vital Signs Date Time Temp Pulse Resp B/P (MAP) Pulse Ox O2 Delivery O2 Flow Rate FiO2 12/26/18 09:30 87 20 137/72 (93) 93 45 12/26/18 07:35 97.9 12/25/18 20:39 Ventilator 12/23/18 20:00 15.0 I&O- Last 24 Hours up to 6 AM 12/26/18 06:00 Intake Total 2344.9 ml Output Total 3730 ml Balance -1385.1 ml Laboratory Data 24H LABS Laboratory Tests 2 12/25/18 11:51: Bedside Glucose (Misc Panel) 168H 12/26/18 04:50: Nucleated Red Blood Cells % (auto) 0.0, Prothrombin Time 17.5H, Prothromb Time International Ratio 1.46, Anion Gap 8, Glomerular Filtration Rate 56.3, Blood Urea Nitrogen 40H, Creatinine 1.39H, Sodium Level 138, Potassium Level 4.3, Chloride Level 93L, Carbon Dioxide Level 37H, Calcium Level 7.7L, Aspartate Amino Transf (AST/SGOT) 105H, Alanine Aminotransferase (ALT/SGPT) 289H, Alkaline Phosphatase 74, Total Bilirubin 0.3, Total Protein 6.6, Albumin 2.6L, IK-Ozv-I-Type Natriuretic Peptide 421H, Albumin/Globulin Ratio 0.65L 12/26/18 05:15: Blood Gas Bicarbonate Standard 33.7H, Arterial Blood pH 7.452H, Arterial Blood Partial Pressure CO2 52.7H, Arterial Blood Partial Pressure O2 85.1, Arterial Blood Total CO2 37.6H, Arterial Blood HCO3 36.0H, Arterial Blood Base Excess 10.0H, Arterial Blood Oxygen Saturation 96.4 CBC/BMP Laboratory Tests 12/26/18 04:50 Red Blood Count 4.67, Mean Corpuscular Volume 104.3 H, Mean Corpuscular Hemoglobin 33.2 H, Mean Corpuscular Hemoglobin Concent 31.8 L, Red Cell Distribution Width 14.5, Calcium Level 7.7 L, Aspartate Amino Transf (AST/SGOT) 105 H, Alanine Aminotransferase (ALT/SGPT) 289 H, Alkaline Phosphatase 74, Total Bilirubin 0.3, Total Protein 6.6, Albumin 2.6 L Microbiology Microbiology 12/23/18 Blood Culture - Preliminary, Resulted No Growth after 48 hours. All Specime... 12/23/18 Blood Culture - Preliminary, Resulted No Growth after 48 hours. All Specime... 12/24/18 Gram Stain - Final, Complete 12/24/18 Sputum Culture - Final, Complete 12/24/18 MRSA Screen - Final, Complete Kathleen AlbaradoP Dec 26, 2018 10:26 ERICKA GARCIA DO Dec 27, 2018 23:15
[2018-12-26 10:32] LABS: FOLATE 12.2 NG/ML (>5.4)
[2018-12-26] MEDS: FUROSEMIDE 100 MG/10 ML VIAL (J1940) IV SCH ×2 (11:52→23:22)
--- NOTE | 2018-12-26 12:04 | CCN ---
DATE: 12/26/2018 Patient was seen and examined this morning during bedside rounds. The patient had no events overnight. He does occasionally have episodes of agitation requiring p.r.n. Versed. This morning he did have a sedation vacation where patient did wake up but he was having significant gagging and coughing and required another dose of p.r.n. Versed and was restarted on his propofol. PHYSICAL EXAM: Temperature 97.9, pulse 72, respirations 20, blood pressure 127/67, O2 94% on 50% FiO2. Ins 2.4 liters out 2.5, negative 1.1 liters. GENERAL: The patient is morbidly obese, is lying in bed intubated and sedated, is responsive to painful stimuli. HEENT: Normocephalic, atraumatic. Pupils are equal, reactive to light bilaterally. Endotracheal tube and OG tube is in place. NECK: Supple. Unable to appreciate any jugular venous distention (JVD) due to body habitus. CARDIOVASCULAR: Regular rate and rhythm. Normal S1-S2. Unable to appreciate any murmurs. PULMONARY: Decreased breath sounds bilaterally with few crackles at the bases. No wheezing or rhonchi noted. ABDOMEN: Obese, soft, nontender to palpation. There is improvement in the previously noted anasarca. LOWER EXTREMITIES: There is bilateral pitting lower extremity edema, improved compared to admission. He has chronic venous stasis changes bilaterally. There is improvement in the previously noted erythema and increased warmth in his lower extremity. There is an encrusting wound in his left mccain area. No drainage noted. LABORATORY DATA: WBC 9.9, hemoglobin 15.5, platelets 243. Chemistries: Sodium is 138, potassium is 4.3, chloride is 93, bicarb is 37, BUN 40, creatinine is 1.39, glucose is 177, BNP trending down to 421, AST, ALT improving 105 and 289. ABG pH 7.452, pCO2 of 52.1, pO2 of 85.1. Chest x-ray this morning shows ET tube in place approximately 3.5 cm above the bettina, was adjusted yesterday. Continues to show some small bilateral pleural effusions and opacities bilaterally and some pulmonary vascular congestion. ASSESSMENT/PLAN: Mr. Mackey is a 58-year-old male with a history of hypertension, hepatitis C, chronic obstructive pulmonary disease (COPD), obstructive sleep apnea (OSIRIS), noncompliant with CPAP, who presented with acute hypoxemic respiratory failure and acute on chronic hypercarbic respiratory failure likely in the setting of decompensated CHF. The patient was placed on BiPAP, but continued to have worsening hypoxemia and no improvement in his hypercarbic respiratory failure and so was intubated and placed on mechanical ventilation. There was also some concern for possible ARDS given his worsening hypoxia and worsening chest x-ray. Multifocal pneumonia was also in the differential although he was afebrile and he did not have any significant leukocytosis. His sputum cultures have also been negative to date. 1. Acute on chronic hypercarbic respiratory failure and acute hypoxemic respiratory failure in setting of decompensated CHF and also possible ARDS, less likely multifocal pneumonia. Patient is intubated on PRVC. Will continue to wean down his PEEP and his FIO2 as tolerated. The patient will be adjusted to 500/20/8/40%. - continue with daily chest x-rays and ABGs while intubated. - The patient had a sedation vacation this morning. He was arousable and awake, but had significant coughing and gagging. Would likely need to start him on Precedex tomorrow to help with his sedation and weaning. For now continue with propofol and Versed p.r.n. as needed for agitation. - Continue with vent bundle care with head of bed elevation and chlorhexidine mouthwash. - Continue with Lasix for his decompensated CHF at 60mg IV q.12 h and continue to monitor his ins and outs. - Will continue taper Solu-Medrol to 40 mg daily and treat for a 5-day course. - Continue with DuoNebs q.6 h 2. Acute renal failure likely cardiorenal given his decompensated CHF. Creatinine had improved with diuresis. His bicarbonate and BUN is increasing slightly with the diuresis but will continue for now. - Continue to monitor electrolytes replete as needed - Continue to monitor his renal function and renally dose medications. - Continue to monitor ins and outs. - Continue to hold his losartan. 3. Transaminitis, likely secondary to hepatic congestion from his decompensated heart failure and possibly also due to his heavy alcohol use. LFTs are improving with diuresis. His liver ultrasound showed hepatic steatosis and gallstones, but no acute cholecystitis. 4. ID: The patient had lower extremity cellulitis on admission. Multifocal pneumonia was also possible given his x-ray findings although he had no fever. No significant leukocytosis and his sputum culture so far has been negative. - The patient's cellulitis appears improving. His procalcitonin was 0.11 suggesting bacterial pneumonia is less likely. Would continue with ceftriaxone for a total five day course for his cellulitis. 5. Deep vein thrombosis (DVT) prophylaxis/history of DVT. Continue with Xarelto. 6. GI. OG tube is in place. The patient is on tube feeds. Will titrate up his tube feeds today as he has been tolerating well. Will make n.p.o. at midnight for a ventilator weaning trial the morning. GI prophylaxis while intubated. FULL CODE. Total critical care time spent, not including any procedures, approximately 40 minutes. MTDD
[2018-12-26] MEDS: cefTRIAXone SOD 1 GM in D5W MINI-BAG PLUS 50 ML IV SCH (22:20)
[2018-12-27] VITALS (21 sets, daily range): BP systolic 108–170; BP diastolic 58–89
[2018-12-27] MEDS: PROPOFOL 1,000 MG in APPROPRIATE DILUENT 1 EA IV SCH ×5 (00:59→08:00)
[2018-12-27] MEDS: IPRATROPIUM 0.5MG/ALBUTEROL 2.5MG INH SOL UD 3ML (DUONEB)(J7620) NEB SCH ×4 (01:38→20:20)
[2018-12-27 05:14] LABS: HEMATOCRIT 50.8 % (42.0-52.0); HEMOGLOBIN 15.6 g/dl (13.5-17.5); MEAN CORPUSCULAR HEMOGLOBIN 31.6 pg (27.0-33.0); MEAN CORPUSCULAR HGB CONC 30.7 g/dl (32.0-36.5); MEAN CORPUSCULAR VOLUME 102.8 fl (80.0-96.0); PLATELET COUNT, AUTOMATED 261 10^3/uL (150-450); RED BLOOD COUNT 4.94 10^6/uL (4.30-6.10); WHITE BLOOD COUNT 10.8 10^3/uL (4.0-10.0)
[2018-12-27 05:24] LABS: INR 1.19; PROTHROMBIN TIME 14.8 SECONDS (11.8-14.0)
[2018-12-27 05:27] LABS: ABG BASE EXCESS 13.1 (-2.0-2.0); ABG HCO3 39.8 MEQ/L (22.0-26.0); ABG O2 SATURATION 93.8 % (95.0-99.0); ABG PARTIAL PRESSURE CO2 56.4 mmHg (35.0-45.0); ABG PARTIAL PRESSURE O2 74.7 mmHg (75.0-100.0); ABG STANDARD HCO3 36.9 MEQ/L (22.0-26.0); ABG TOTAL CO2 41.5 MEQ/L (22.0-29.0); ABG pH (ARTERIAL) 7.466 UNITS (7.350-7.450)
[2018-12-27 05:35] LABS: ALBUMIN 2.7 GM/DL (3.2-5.2); ALT/SGPT 246 U/L (12-78); BILIRUBIN,TOTAL 0.3 MG/DL (0.2-1.0); BLOOD UREA NITROGEN 36 MG/DL (7-18); CARBON DIOXIDE LEVEL 41 MEQ/L (21-32); CHLORIDE LEVEL 94 MEQ/L (98-107); CREATININE FOR GFR 1.17 MG/DL (0.70-1.30); GLOMERULAR FILTRATION RATE > 60.0 (>56); GLUCOSE, FASTING 99 MG/DL (70-100); POTASSIUM SERUM 4.1 MEQ/L (3.5-5.1); SODIUM LEVEL 142 MEQ/L (136-145); TOTAL PROTEIN 6.7 GM/DL (6.4-8.2)
--- NOTE | 2018-12-27 08:01 | REP ---
Status post intubation. Comparison: 12/26/2018. Findings: Endotracheal tube 4 cm above the bettina. Nasogastric tube courses below left hemidiaphragm. Cardiomegaly with findings to suggest pulmonary vascular congestion/CHF including indistinct pulmonary vasculature with elements of cephalization, perihilar and bibasilar opacities (left greater than right) and suspected layering left effusion. Findings are similar to prior examination. No pneumothorax. Skeletal structures are intact. Impression: Findings described above suggest CHF/pulmonary edema versus multifocal pneumonia and remain relatively stable compared to 12/26/2018. Electronically Signed by Lorenzo Ronquillo MD 12/27/2018 07:52 A
[2018-12-27] MEDS: methylPREDNISolone INJ 40 MG/1 ML VIAL (J2920) IV SCH (08:16)
[2018-12-27] MEDS: RIVAROXABAN 20 MG TAB (XARELTO) PO SCH (08:17)
[2018-12-27] MEDS: PANTOPRAZOLE 40MG INJ (PROTONIX) (C9113) IV SCH (08:17)
[2018-12-27] MEDS: CHLORHEXIDINE GLUCONATE 0.12 % 15ML UDC (PERIDEX ORAL RINSE) MT SCH (08:17)
[2018-12-27] MEDS: POLYTRIM OPTH DROPS 10ML OU SCH ×4 (08:18→21:19)
[2018-12-27] MEDS: amLODIPine 5 MG TAB PO SCH (08:18)
[2018-12-27] MEDS ORDERED: dexmedeTOMidine 200 MCG in APPROPRIATE DILUENT 1 EA IV SCH (09:15)
--- NOTE | 2018-12-27 10:09 | IPNPDOC ---
Subjective Date Seen The patient was seen on 12/27/18. Subjective Chief Complaint/HPI Remains intubated today Constitutional: Denies: Chills, Fever Cardiovascular: Denies: Chest Pain Gastrointestinal: Denies: Nausea, Vomiting Objective Physical Examination General Exam: Positive: No Acute Distress; Negative: Alert (intubated) Eye Exam: Positive: Conjunctiva & lids normal; Negative: Sclera icteric ENT Exam: Positive: Other ENT (intubated with both ET and OG tubes) Neck Exam: Positive: Other (thick); Negative: Lymphadenopathy Chest Exam: Positive: Diminished (bibasilar); Negative: Wheezing Heart Exam: Positive: Rate Normal, Regular Rhythm, Normal S1, Normal S2; Negative: Murmurs Abdomen Exam: Positive: Normal bowel sounds, Soft; Negative: Tenderness Extremity Exam: Positive: Edema (trace BL), Other (chronic venous stasis dermatitis) Skin Exam: Positive: Lesion (the open lesion on his left anterior tibial area is much more dry) Neuro Exam: Positive: Other (intentionally sedated) Psych Exam: Negative: Mental status NL Assessment /Plan Assessment Patient seen, had been extubated when I saw him. He appeared fairly comfortable on Bipap, though uncertain how or why he got to the ICU. -- CDT Problems (1) Acute on chronic respiratory failure with hypoxia and hypercapnia Status: Acute Discussed With: Nailer Hand, Patient Problem Specific Plan: Monitor Clinically, Repeat Labs Problem Text: He is currently intubated and managed by pulmonary/critical care for this problem. Per the reports he seems to making slow progress toward recovery. (2) Acute congestive heart failure Status: Acute Problem Specific Plan: Monitor Clinically Problem Text: 12/27 - continues to have good diuresis on current dose of IV Lasix Echocardiogram continues to show normal left ventricular systolic function. A cardiac nuclear stress test from 12/13/18 done through [facility] showed normal ejection fraction (63%). (3) Acute respiratory distress syndrome (ARDS) Status: Acute Response to Treatment: Improving Discussed With: Nailer Hand Problem Text: Based on the increased pressure and FiO2 needed it seems that he likely has an element of ARDS. We'll defer this to pulmonology/critical care. (4) FRITZ (acute kidney injury) Status: Resolved Problem Specific Plan: Repeat Labs Problem Text: 12/27 - renal function improving with diuresis (5) Cellulitis of left leg Status: Acute Problem Specific Plan: Monitor Clinically, Repeat Labs Problem Text: He is currently on ceftriaxone D# 4 Vanco d/c'd (6) Alcohol abuse Status: Chronic Problem Text: While it has been difficult to get a clear picture of this from the patient, review of his chart seems that he typically drinks at least 6 beers a day. This may explain why sedating and has been more difficult. We should consider using the CIWA scale once he is extubated and no longer sedated. (7) OSIRIS (obstructive sleep apnea) Status: Chronic Response to Treatment: Uncontrolled Problem Text: He has a known history of sleep apnea but is noncompliant with CPAP. 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 This was determined to be secondary to chronic hypoxia from his uncontrolled sleep apnea and likely his long history of smoking. From their note in October of this year it seems that they are targeting a hematocrit of around 54, although this is not a strict target. They certainly encourage phlebotomy if his hematocrit exceeds 60. (9) Traumatic brain injury Status: Chronic Problem Text: The patient is currently sedated. It is important for those caring for him to knows that he suffers from a traumatic brain injury and has generally been described as a crass person. Some of his behaviors that may be noted after he is brought out of sedation may be baseline rather than continued confusion. (10) History of DVT (deep vein thrombosis) Status: Chronic Problem Text: He has had at least 2 lower extremity DVTs in his life. Hematology had determined that lifelong anticoagulation was appropriate for him. He is currently anticoagulated with Xarelto. Plan/VTE VTE Prophylaxis Ordered?: Yes (on Xarelto) VS, I&O, 24H, Fishbone Vital Signs/I&O Vital Signs Date Time Temp Pulse Resp B/P (MAP) Pulse Ox O2 Delivery O2 Flow Rate FiO2 12/27/18 08:18 73 122/69 12/27/18 07:08 20 91 40 12/27/18 04:19 Ventilator 12/27/18 04:00 98.7 12/23/18 20:00 15.0 I&O- Last 24 Hours up to 6 AM 12/27/18 06:00 Intake Total 2452 ml Output Total 5675 ml Balance -3223 ml Laboratory Data 24H LABS Laboratory Tests 2 12/27/18 04:51: Nucleated Red Blood Cells % (auto) 0.0, Prothrombin Time 14.8H, Prothromb Time International Ratio 1.19, Anion Gap 7L, Glomerular Filtration Rate > 60.0, Blood Urea Nitrogen 36H, Creatinine 1.17, Sodium Level 142, Potassium Level 4.1, Chloride Level 94L, Carbon Dioxide Level 41H, Calcium Level 8.0L, Aspartate Amino Transf (AST/SGOT) 73H, Alanine Aminotransferase (ALT/SGPT) 246H, Alkaline Phosphatase 67, Total Bilirubin 0.3, Total Protein 6.7, Albumin 2.7L, Albumin/Globulin Ratio 0.68L 12/27/18 05:20: Blood Gas Bicarbonate Standard 36.9H, Arterial Blood pH 7.466H, Arterial Blood Partial Pressure CO2 56.4H, Arterial Blood Partial Pressure O2 74.7L, Arterial Blood Total CO2 41.5H, Arterial Blood HCO3 39.8H, Arterial Blood Base Excess 13.1H, Arterial Blood Oxygen Saturation 93.8L CBC/BMP Laboratory Tests 12/27/18 04:51 Red Blood Count 4.94, Mean Corpuscular Volume 102.8 H, Mean Corpuscular Hemoglobin 31.6, Mean Corpuscular Hemoglobin Concent 30.7 L, Red Cell Distribution Width 14.6 H, Calcium Level 8.0 L, Aspartate Amino Transf (AST/SGOT) 73 H, Alanine Aminotransferase (ALT/SGPT) 246 H, Alkaline Phosphatase 67, Total Bilirubin 0.3, Total Protein 6.7, Albumin 2.7 L Microbiology Microbiology 12/23/18 Blood Culture - Preliminary, Resulted No Growth after 72 hours. All specime... 12/23/18 Blood Culture - Preliminary, Resulted No Growth after 72 hours. All specime... 12/24/18 Gram Stain - Final, Complete 12/24/18 Sputum Culture - Final, Complete 12/24/18 MRSA Screen - Final, Complete CALLIE FELIX PA-C Dec 27, 2018 10:09 ERICKA GARCIA DO Dec 27, 2018 23:47
[2018-12-27 10:42] LABS: ABG BASE EXCESS 13.2 (-2.0-2.0); ABG HCO3 41.2 MEQ/L (22.0-26.0); ABG O2 SATURATION 93.8 % (95.0-99.0); ABG PARTIAL PRESSURE CO2 63.6 mmHg (35.0-45.0); ABG PARTIAL PRESSURE O2 76.7 mmHg (75.0-100.0); ABG TOTAL CO2 43.1 MEQ/L (22.0-29.0); ABG pH (ARTERIAL) 7.429 UNITS (7.350-7.450)
[2018-12-27] MEDS: FUROSEMIDE 100 MG/10 ML VIAL (J1940) IV SCH ×2 (12:21→23:57)
--- NOTE | 2018-12-27 13:05 | CCN ---
DATE: 12/27/2018 Patient was seen and examined this morning during bedside rounds. He has been able to be weaned down on the vent to a PEEP of 8 and FiO2 of 40%. The patient also had a sedation vacation this morning and he appears to be responsive, following commands appropriately. He has not had any fevers overnight. Has not had any copious secretions. He continues to have adequate diuresis with Lasix. PHYSICAL EXAMINATION: Temperature 98.7, pulse 70, respirations 20, blood pressure 115/61, O2 sat 92% on 40% FiO2. Ins 2.6 liters, out 5.2 liters, net negative 2.5 liters. General: The patient is a morbidly obese male, is lying in bed intubated and is not on sedation currently. He is following commands appropriately and responsive. HEENT: Normocephalic, atraumatic. Pupils are small and reactive to light bilaterally. Endotracheal tube and OG tube is in place. Neck is supple. Unable to appreciate any jugular venous distention (JVD) due to body habitus. Cardiovascular: Regular rate and rhythm. Normal S1-S2. Unable to appreciate murmurs. Pulmonary: Some coarse ventilator breath sounds bilaterally with crackles at the bases. No wheezing or rhonchi noted. Abdomen is obese, soft, nontender to palpation. There is no anasarca noted currently. Lower extremities: There is a bilateral pitting lower extremity edema, however improved from admission. He has chronic venous stasis changes bilaterally and the previously noted erythema and increased warmth in his lower extremities have improved. LABS: WBC 10.8, hemoglobin 15.6, platelets 261. Chemistry sodium 142, potassium 4.1, chloride 94, bicarb 41, BUN 36, creatinine 1.17, glucose 99, AST/ALT trending down 73 and 246. ABG this morning showed pH 7.466, pCO2 of 36.4, pO2 of 74.7. Chest x-ray this morning shows ET tube in good position. He continues to have some small bilateral effusions and opacities bilaterally and pulmonary vascular congestion, although when compared to his initial chest x-ray on 12/24 there is some slight improvement. There is no significant improvement compared to yesterday. ASSESSMENT/PLAN: Mr. Mackey is a 58-year-old male with a history of hypertension, hepatitis C, chronic obstructive pulmonary disease (COPD), obstructive sleep apnea (OSIRIS) noncompliant with CPAP, who presented with acute hypoxemic respiratory failure and acute on chronic hypercarbic respiratory failure likely in the setting of decompensated CHF. The patient was placed initially on BiPAP, however he continued to have worsening hypoxemia and worsening findings on chest x-ray and he was intubated and placed on mechanical ventilation. There was concern for possible ARDS given his worsening hypoxia and the imaging findings. Multifocal pneumonia was also in the differential although he had been afebrile and did not have any significant leukocytosis. Acute on chronic hypercarbic respiratory failure, acute hypoxemic respiratory failure in the setting of decompensated CHF and also possible ARDS, less likely multifocal pneumonia. - The patient is on PRVC at 500/20/8/40%. - The patient is placed on a sedation vacation and will place him on a weaning trial with pressure support and repeat an ABG. The patient's repeat ABG on the weaning trial was acceptable. The patient was extubated to BiPAP with the settings of 15/8 and 40% FiO2 and respiration rate of 15. - Will keep patient on BiPAP and will repeat ABG this afternoon. Will likely continue him on BiPAP during the day and overnight and then attempt to wean him from the BiPAP tomorrow morning. He will continue BiPAP at q.h.s. for his history of OSIRIS and likely component of OHS given evidence of chronic hypercarbic respiratory failure. - Continue with Lasix for diuresis and continue to monitor his ins and outs. His bicarb is increasing, but his Cr has continued to improve. Will continue to monitor and adjust as per the primary team. - Continue with Solu-Medrol 40 mg daily - Continue DuoNebs every 6 hours. Acute renal failure likely cardiorenal given his decompensate chest. Creatinine is improving with diuresis. His bicarbonate is increasing slightly. Will continue to monitor for now but may need adjustment of his Lasix. He continues to have evidence of fluid overload and pitting edema and pulmonary vascular congestion on imaging. - Continue to monitor electrolytes and replete as needed. - Continue to renally dose medications. - Continue to monitor ins and outs. - Continue to hold his angiotension receptor blockers (ARB). Transaminitis likely secondary to hepatic congestion from decompensated heart failure and also possibly due to his history of heavy alcohol use. LFTs are improving with diuresis. His liver ultrasound showed hepatic steatosis and gallstones but no acute cholecystitis. Lower extremity cellulitis likely given the clinical picture on admission. Multifocal pneumonia was also possible given his x-ray findings although he had no fever and no significant leukocytosis. His sputum culture final results were negative. - Cellulitis appears improving. His a procalcitonin was 0.11 suggesting bacterial pneumonia less likely. - Continue ceftriaxone to complete a total 5-day course for cellulitis Deep vein thrombosis (DVT) prophylaxis Xarelto for history of DVT. The patient is nothing by mouth while on BiPAP. If he is able to be off BiPAP tomorrow will advance his diet as tolerated. GI prophylaxis. FULL CODE. Total critical care time spent, not including procedures, approximately 45 minutes. MTDD
[2018-12-27 14:15] LABS: ABG BASE EXCESS 12.5 (-2.0-2.0); ABG HCO3 40.3 MEQ/L (22.0-26.0); ABG O2 SATURATION 91.8 % (95.0-99.0); ABG PARTIAL PRESSURE O2 69.6 mmHg (75.0-100.0); ABG STANDARD HCO3 36.2 MEQ/L (22.0-26.0); ABG TOTAL CO2 42.2 MEQ/L (22.0-29.0); ABG pH (ARTERIAL) 7.428 UNITS (7.350-7.450)
[2018-12-27 14:20] LABS: ABG PARTIAL PRESSURE CO2 62.4 mmHg (35.0-45.0)
[2018-12-27] MEDS: cefTRIAXone SOD 1 GM in D5W MINI-BAG PLUS 50 ML IV SCH (23:57)
[2018-12-28] VITALS (18 sets, daily range): BP systolic 108–139; BP diastolic 59–75; O2SAT 92
[2018-12-28] MEDS: IPRATROPIUM 0.5MG/ALBUTEROL 2.5MG INH SOL UD 3ML (DUONEB)(J7620) NEB SCH ×4 (01:44→20:33)
[2018-12-28 04:59] LABS: HEMATOCRIT 52.5 % (42.0-52.0); HEMOGLOBIN 16.1 g/dl (13.5-17.5); MEAN CORPUSCULAR HEMOGLOBIN 32.4 pg (27.0-33.0); MEAN CORPUSCULAR HGB CONC 30.7 g/dl (32.0-36.5); MEAN CORPUSCULAR VOLUME 105.6 fl (80.0-96.0); PLATELET COUNT, AUTOMATED 254 10^3/uL (150-450); RED BLOOD COUNT 4.97 10^6/uL (4.30-6.10); WHITE BLOOD COUNT 12.7 10^3/uL (4.0-10.0)
[2018-12-28 05:10] LABS: INR 1.16; PROTHROMBIN TIME 14.5 SECONDS (11.8-14.0)
[2018-12-28 05:25] LABS: ALBUMIN 2.9 GM/DL (3.2-5.2); ALT/SGPT 202 U/L (12-78); BILIRUBIN,TOTAL 0.8 MG/DL (0.2-1.0); BLOOD UREA NITROGEN 38 MG/DL (7-18); CALCIUM LEVEL 9.1 MG/DL (8.5-10.1); CARBON DIOXIDE LEVEL 40 MEQ/L (21-32); CHLORIDE LEVEL 94 MEQ/L (98-107); GLOMERULAR FILTRATION RATE > 60.0 (>56); GLUCOSE, FASTING 102 MG/DL (70-100); SODIUM LEVEL 140 MEQ/L (136-145); TOTAL PROTEIN 7.3 GM/DL (6.4-8.2)
--- NOTE | 2018-12-28 07:17 | ECGEPIP ---
[facility] Test Date: 2018-12-23 Pat Name: JENNIFER JOHNSON Department: Room: [place] [address] Gender: Male Electronic Scale Subassembler: JENNA : 1960 Requested By: Gulshan Mora Order Number: [id number] Reading MD: Elijah Mireles Measurements Intervals [place] Rate: 94 P: 43 ME: 187 QRS: 121 QRSD: 114 T: QT: 366 QTc: 458 Interpretive Statements SINUS RHYTHM RIGHT BUNDLE BRANCH BLOCK RIGHT VENTRICULAR HYPERTROPHY AND ST-T CHANGE ANTEROSEPTAL MYOCARDIAL INFARCTION, OF INDETERMINATE AGE, CANNOT R/O CONSIDER PULMONARY HYPERTENSION NO PRIOR Electronically Signed on 12-28-2018 7:16:56 EDT by Elijah Mireles
[2018-12-28] MEDS: methylPREDNISolone INJ 40 MG/1 ML VIAL (J2920) IV SCH (09:00)
[2018-12-28] MEDS: PANTOPRAZOLE 40MG INJ (PROTONIX) (C9113) IV SCH (09:44)
[2018-12-28] MEDS: RIVAROXABAN 20 MG TAB (XARELTO) PO SCH (09:44)
[2018-12-28] MEDS: POLYTRIM OPTH DROPS 10ML OU SCH ×4 (09:45→21:17)
[2018-12-28] MEDS: amLODIPine 5 MG TAB PO SCH (09:45)
--- NOTE | 2018-12-28 09:49 | IPNPDOC ---
Subjective Date Seen The patient was seen on 12/28/18. Subjective Chief Complaint/HPI Patient lying comfortably in bed as I entered the room Constitutional: Denies: Chills, Fever Pulmonary: Reports: Dyspnea; Denies: Cough, Pleuritic Chest Pain Cardiovascular: Denies: Chest Pain, Palpitations, Orthopnea, Edema Gastrointestinal: Denies: Nausea, Vomiting, Abdominal Pain Psych: Reports: Mood Normal Objective Physical Examination General Exam: Positive: No Acute Distress; Negative: Alert (intubated) Eye Exam: Positive: Conjunctiva & lids normal; Negative: Sclera icteric Neck Exam: Positive: Other (thick); Negative: Lymphadenopathy Chest Exam: Positive: Diminished (bibasilar); Negative: Wheezing Heart Exam: Positive: Rate Normal, Regular Rhythm, Normal S1, Normal S2; Negative: Murmurs Abdomen Exam: Positive: Normal bowel sounds, Soft; Negative: Tenderness Extremity Exam: Positive: Edema (trace BL), Other (chronic venous stasis dermatitis) Skin Exam: Positive: Lesion (the open lesion on his left anterior tibial area is covered) Neuro Exam: Positive: Normal Speech Psych Exam: Positive: Mental status NL Assessment /Plan Assessment Patient seen today in the ICU. Appears more comfortable, off BiPAP and tolerating NC O2. As he has been diuresed, respiratory status has improved, and I'll switch him to PO diuretic. -- CDT Problems (1) Acute on chronic respiratory failure with hypoxia and hypercapnia Status: Acute Discussed With: Molasses Preparer, Patient Problem Specific Plan: Monitor Clinically, Repeat Labs Problem Text: 12/28/18: Improving. Patient's BiPAP discontinued. He remains on nasal cannula 6 L. Pulmonary continues to follow. He will use CPAP tonight. Solumedrol to be d/c by pulmonary today He is currently intubated and managed by pulmonary/critical care for this problem. Per the reports he seems to making slow progress toward recovery. (2) Acute congestive heart failure Status: Acute Response to Treatment: Stable Problem Specific Plan: Monitor Clinically Problem Text: 12/28/18: Remains on Lasix 60mg IV bid. Per pulmonary he may be able to transition to Torsemide 40 mg po q day tomorrow. Cre 1.10 12/27 - continues to have good diuresis on current dose of IV Lasix Echocardiogram continues to show normal left ventricular systolic function. A cardiac nuclear stress test from 12/13/18 done through [facility] showed normal ejection fraction (63%). (3) Acute respiratory distress syndrome (ARDS) Status: Acute Response to Treatment: Improving Discussed With: Molasses Preparer Problem Text: Based on the increased pressure and FiO2 needed it seems that he likely has an element of ARDS. We'll defer this to pulmonology/critical care. (4) FRITZ (acute kidney injury) Status: Resolved Problem Specific Plan: Repeat Labs Problem Text: 12/27 - renal function improving with diuresis (5) Cellulitis of left leg Status: Acute Problem Specific Plan: Monitor Clinically, Repeat Labs Problem Text: 12/28/18: Much improved. He remains on Ceftriaxone D#5. We may want to consider transitioning him to a PO abx He is currently on ceftriaxone D# 4 Vanco d/c'd (6) Alcohol abuse Status: Chronic Problem Text: While it has been difficult to get a clear picture of this from the patient, review of his chart seems that he typically drinks at least 6 beers a day. This may explain why sedating and has been more difficult. We should consider using the CIWA scale once he is extubated and no longer sedated. (7) OSIRIS (obstructive sleep apnea) Status: Chronic Response to Treatment: Uncontrolled Problem Text: 12/28/18:Pulmonary to start CPAP tonight He has a known history of sleep apnea but is noncompliant with CPAP. 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 This was determined to be secondary to chronic hypoxia from his uncontrolled sleep apnea and likely his long history of smoking. From their note in October of this year it seems that they are targeting a hematocrit of around 54, although this is not a strict target. They certainly encourage phlebotomy if his hematocrit exceeds 60. (9) Traumatic brain injury Status: Chronic Problem Text: The patient is currently sedated. It is important for those caring for him to knows that he suffers from a traumatic brain injury and has generally been described as a crass person. Some of his behaviors that may be noted after he is brought out of sedation may be baseline rather than continued confusion. (10) History of DVT (deep vein thrombosis) Status: Chronic Problem Text: He has had at least 2 lower extremity DVTs in his life. Hematology had determined that lifelong anticoagulation was appropriate for him. He is currently anticoagulated with Xarelto. Plan/VTE VTE Prophylaxis Ordered?: Yes (on Xarelto) VS, I&O, 24H, Fishbone Vital Signs/I&O Vital Signs Date Time Temp Pulse Resp B/P (MAP) Pulse Ox O2 Delivery O2 Flow Rate FiO2 12/28/18 07:55 30 12/28/18 07:54 97.5 68 17 131/62 (85) 94 12/27/18 04:19 Ventilator 12/23/18 20:00 15.0 I&O- Last 24 Hours up to 6 AM 12/28/18 06:00 Intake Total 230 ml Output Total 7105 ml Balance -6875 ml Laboratory Data 24H LABS Laboratory Tests 2 12/27/18 10:14: Blood Gas Bicarbonate Standard 37.0H, Arterial Blood pH 7.429, Arterial Blood Partial Pressure CO2 63.6*H, Arterial Blood Partial Pressure O2 76.7, Arterial Blood Total CO2 43.1H, Arterial Blood HCO3 41.2H, Arterial Blood Base Excess 13.2H, Arterial Blood Oxygen Saturation 93.8L 12/27/18 14:05: Blood Gas Bicarbonate Standard 36.2H, Arterial Blood pH 7.428, Arterial Blood Partial Pressure CO2 62.4*H, Arterial Blood Partial Pressure O2 69.6L, Arterial Blood Total CO2 42.2H, Arterial Blood HCO3 40.3H, Arterial Blood Base Excess 12.5H, Arterial Blood Oxygen Saturation 91.8L 12/28/18 04:44: Nucleated Red Blood Cells % (auto) 0.0, Prothrombin Time 14.5H, Prothromb Time International Ratio 1.16, Anion Gap 6L, Glomerular Filtration Rate > 60.0, Blood Urea Nitrogen 38H, Creatinine 1.10, Sodium Level 140, Potassium Level 4.0, Chloride Level 94L, Carbon Dioxide Level 40H, Calcium Level 9.1, Aspartate Amino Transf (AST/SGOT) 53H, Alanine Aminotransferase (ALT/SGPT) 202H, Alkaline Phosphatase 70, Total Bilirubin 0.8#, Total Protein 7.3, Albumin 2.9L, Albumin/Globulin Ratio 0.66L CBC/BMP Laboratory Tests 12/28/18 04:44 Red Blood Count 4.97, Mean Corpuscular Volume 105.6 H, Mean Corpuscular Hemoglobin 32.4, Mean Corpuscular Hemoglobin Concent 30.7 L, Red Cell Distribution Width 14.6 H, Calcium Level 9.1, Aspartate Amino Transf (AST/SGOT) 53 H, Alanine Aminotransferase (ALT/SGPT) 202 H, Alkaline Phosphatase 70, Total Bilirubin 0.8 #, Total Protein 7.3, Albumin 2.9 L Microbiology Microbiology 12/23/18 Blood Culture - Preliminary, Resulted No Growth after 72 hours. All specime... 12/23/18 Blood Culture - Preliminary, Resulted No Growth after 72 hours. All specime... 12/24/18 Gram Stain - Final, Complete 12/24/18 Sputum Culture - Final, Complete 12/24/18 MRSA Screen - Final, Complete NAIF PALMER Dec 28, 2018 09:49 ERICKA GARCIA DO Dec 28, 2018 23:40
[2018-12-28] MEDS: FUROSEMIDE 100 MG/10 ML VIAL (J1940) IV SCH ×2 (12:43→23:38)
--- NOTE | 2018-12-28 13:59 | CCN ---
DATE: 12/28/2018 The patient was seen and examined this morning during bedside rounds. The patient was extubated yesterday to BiPap which she did tolerate yesterday afternoon and evening. This morning, he appears to be much more awake and responsive and he reports his breathing has improved. He is eager to be off of the BiPap if possible. He denies any chest pains. No shortness of breath. No abdominal pains. No fevers or chills. No nausea or vomiting. PHYSICAL EXAMINATION: Temperature 97.5, pulse 68, respirations 17, blood pressure 131/62, O2 sat 94% on BiPap at 30% FiO2. Net negative 5.3 liters. General: The patient is a morbidly obese male who is lying in bed and on BiPap. He is awake and alert and following commands appropriately. HEENT: Normocephalic, atraumatic. Pupils are reactive to light bilaterally. Neck is supple. Unable to appreciate any jugular venous distention (JVD) due to body habitus. Cardiovascular: Regular rate and rhythm. Normal S1 and S2. Unable appreciate any murmurs. Pulmonary: There are improved breath sounds noted bilaterally with only scant crackles currently. His abdomen is obese, soft, nontender, and there is no anasarca noted. Lower Extremities: There is significant improvement in his lower extremity edema bilaterally. He has wrinkling now in his lower extremities and some evidence of chronic venous stasis changes bilaterally. The previously noted erythema and increased warmth have improved. LABORATORY DATA: WBC 12.7, hemoglobin 16.1, platelets 254. Chemistry: Sodium is 140, potassium 4.0, chloride 94, bicarb 40, BUN 38, creatinine 1.10, glucose is 102, AST and ALT trending down at 53 and 202. ABG: pH 7.428, pCO2 of 62.4 and pO2 of 69.6 . ASSESSMENT/PLAN: Mr. Mackey is a 58-year-old male with history of hypertension, hepatitis C, chronic obstructive pulmonary disease (COPD), obstructive sleep apnea (OSIRIS) noncompliant with C-PAP, who presented with acute hypoxemic respiratory failure and acute on chronic hypercarbic respiratory failure likely in the setting of decompensated congestive heart failure (CHF). The patient was initially placed on BiPap; however, he had worsening hypoxia and worsening infiltrates on chest x-ray and so he was intubated and placed on mechanical ventilation with concern for possible acute respiratory distress syndrome (ARDS). Multifocal pneumonia was also in the differential, although he had been afebrile and did not have any significant leukocytosis. 1. Acute on chronic hypercarbic respiratory failure and acute hypoxemic respiratory failure in the setting of decompensated CHF and also possible ARDS, less likely multifocal pneumonia. - The patient was extubated successfully yesterday to BiPap. The patient did well with BiPap overnight with a setting of 15/8 and 30% FIO2. Will wean him off of BiPap today to nasal cannula oxygen supplementation and titrate to maintain O2 sat of 88-92%. - The patient has a history of OSIRIS and noncompliance with his C-PAP. His machine was taken away from him, but as per his roommate he has been approved and there is a new machine waiting for him for worm picker. We discussed the importance of compliance with his pressure therapy upon discharge. - Will followup his home settings for his C-PAP and change him to those settings. For now, we will place him on our tabletop BiPap with settings of 15/8 and 30% FIO2. - Continue with Lasix for diuresis. His creatinine is still trending down and he appears significantly improved on physical exam in terms of his anasarca and edema. Would likely be able to transition him from IV to by mouth diuretics tomorrow with torsemide 40 of mg and continue to monitor his ins and outs. - The patient was on Solu-Medrol for possible COPD exacerbation. However has not had any significant wheezing or coughing. Will DC Solu-Medrol and continue with DuoNebs. 2. Acute renal failure likely cardiorenal secondary to his decompensated CHF. His creatinine has continued to improve with diuresis, but his bicarbonate is increasing slightly, most likely a component of metabolic alkalosis. - Will continue with Lasix for today and likely switched to torsemide tomorrow. - Continue to monitor electrolytes and replete as needed - Continue to monitor his ins and outs. - Continue to hold his ARB for now. The patient will likely need to restart some of his hypertensive medications and may need adjustments. 3. Transaminitis likely secondary to hepatic congestion from decompensated heart failure and also possibly due to his history of heavy alcohol use. His LFTs are continuing to improve and his liver ultrasound showed hepatic steatosis and gallstones, but no acute cholecystitis. - Discussed with the patient the importance of abstaining from alcohol, especially given his transaminitis on admission. 4. Lower extremity cellulitis, which is improving currently with ceftriaxone. Can change him to by mouth antibiotics to complete a 5-day total course. The patient's other workup for infectious etiology has been negative including his blood cultures and his sputum cultures. History of deep vein thrombosis (DVT). Continue Xarelto. GI prophylaxis and advance diet as tolerated. Full code. Total critical care time spent, not including procedures, approximately 40 minutes. MTDD
[2018-12-28] MEDS: SENNA 8.6 MG TAB (SENOKOT) PO SCH (18:30)
[2018-12-28] MEDS: DOCUSATE SODIUM 100 MG CAP PO SCH (21:17)
[2018-12-28] MEDS: cefTRIAXone SOD 1 GM in D5W MINI-BAG PLUS 50 ML IV SCH (23:37)
[2018-12-29] VITALS (9 sets, daily range): BP systolic 119–132; BP diastolic 57–77; O2SAT 92
[2018-12-29] MEDS: IPRATROPIUM 0.5MG/ALBUTEROL 2.5MG INH SOL UD 3ML (DUONEB)(J7620) NEB SCH ×4 (02:07→19:16)
[2018-12-29 05:01] LABS: HEMATOCRIT 54.8 % (42.0-52.0); HEMOGLOBIN 16.9 g/dl (13.5-17.5); MEAN CORPUSCULAR HEMOGLOBIN 32.8 pg (27.0-33.0); MEAN CORPUSCULAR HGB CONC 30.8 g/dl (32.0-36.5); MEAN CORPUSCULAR VOLUME 106.4 fl (80.0-96.0); PLATELET COUNT, AUTOMATED 236 10^3/uL (150-450); RED BLOOD COUNT 5.15 10^6/uL (4.30-6.10); WHITE BLOOD COUNT 12.7 10^3/uL (4.0-10.0)
[2018-12-29 05:12] LABS: INR 1.09; PROTHROMBIN TIME 13.8 SECONDS (11.8-14.0)
[2018-12-29 05:28] LABS: ALBUMIN 2.9 GM/DL (3.2-5.2); ALT/SGPT 172 U/L (12-78); BILIRUBIN,TOTAL 0.9 MG/DL (0.2-1.0); BLOOD UREA NITROGEN 36 MG/DL (7-18); CALCIUM LEVEL 9.3 MG/DL (8.5-10.1); CARBON DIOXIDE LEVEL 40 MEQ/L (21-32); CHLORIDE LEVEL 94 MEQ/L (98-107); CREATININE FOR GFR 1.16 MG/DL (0.70-1.30); GLOMERULAR FILTRATION RATE > 60.0 (>56); GLUCOSE, FASTING 104 MG/DL (70-100); POTASSIUM SERUM 3.9 MEQ/L (3.5-5.1); SODIUM LEVEL 139 MEQ/L (136-145); TOTAL PROTEIN 7.6 GM/DL (6.4-8.2)
[2018-12-29] MEDS: TORSEMIDE 20 MG TAB PO SCH (08:14)
[2018-12-29] MEDS: RIVAROXABAN 20 MG TAB (XARELTO) PO SCH (08:14)
[2018-12-29] MEDS: PANTOPRAZOLE 40MG INJ (PROTONIX) (C9113) IV SCH (08:14)
[2018-12-29] MEDS: POLYTRIM OPTH DROPS 10ML OU SCH ×4 (08:15→20:37)
[2018-12-29] MEDS: SENNA 8.6 MG TAB (SENOKOT) PO SCH (08:15)
[2018-12-29] MEDS: DOCUSATE SODIUM 100 MG CAP PO SCH ×2 (08:15→20:37)
[2018-12-29] MEDS: amLODIPine 5 MG TAB PO SCH (08:15)
--- NOTE | 2018-12-29 10:59 | IPNPDOC ---
Subjective Date Seen The patient was seen on 12/29/18. Subjective Chief Complaint/HPI Pt this morning is without new concerns. Family at bedside. Nursings reports bed be downgraded. General: Denies: Fatigue Constitutional: Denies: Chills, Fever ENT: Denies: Head Aches Pulmonary: Denies: Dyspnea, Cough Cardiovascular: Denies: Chest Pain, Palpitations Gastrointestinal: Denies: Nausea, Vomiting, Diarrhea Neurological: Denies: Weakness Psych: Reports: Mood Normal Objective Physical Examination General Exam: Positive: Alert, No Acute Distress Eye Exam: Positive: Sclera icteric Neck Exam: Positive: Lymphadenopathy, Other (thick) Chest Exam: Positive: Diminished (bibasilar); Negative: Wheezing Heart Exam: Positive: Rate Normal, Regular Rhythm, Normal S1, Normal S2; Negative: Murmurs Abdomen Exam: Positive: Normal bowel sounds, Soft; Negative: Tenderness Extremity Exam: Positive: Edema (trace BL), Other (chronic venous stasis dermatitis) Skin Exam: Positive: Lesion (the open lesion on his left anterior tibial area is covered) Neuro Exam: Positive: Normal Speech Psych Exam: Positive: Mental status NL Assessment /Plan Problems (1) Acute on chronic respiratory failure with hypoxia and hypercapnia Status: Acute Discussed With: Microfilmer, Patient Problem Specific Plan: Monitor Clinically, Repeat Labs Problem Text: 12/29 Mgmt has been per Pulm/Int - He cont to show improvement, stressed importance of CPAP device upon d/c 12/28/18: Improving. Patient's BiPAP discontinued. He remains on nasal cannula 6 L. Pulmonary continues to follow. He will use CPAP tonight. Solumedrol to be d/c by pulmonary today He is currently intubated and managed by pulmonary/critical care for this problem. Per the reports he seems to making slow progress toward recovery. (2) Acute congestive heart failure Status: Acute Response to Treatment: Stable Problem Specific Plan: Monitor Clinically Problem Text: 12/29 has been transitioned to PO torsemide. 12/28/18: Remains on Lasix 60mg IV bid. Per pulmonary he may be able to transition to Torsemide 40 mg po q day tomorrow. Cre 1.10 12/27 - continues to have good diuresis on current dose of IV Lasix Echocardiogram continues to show normal left ventricular systolic function. A cardiac nuclear stress test from 12/13/18 done through [facility] showed normal ejection fraction (63%). (3) Acute respiratory distress syndrome (ARDS) Status: Acute Response to Treatment: Improving Discussed With: Microfilmer Problem Text: Based on the increased pressure and FiO2 needed it seems that he likely has an element of ARDS. We'll defer this to pulmonology/critical care. (4) FRITZ (acute kidney injury) Status: Resolved Problem Specific Plan: Repeat Labs Problem Text: 12/27 - renal function improving with diuresis (5) Cellulitis of left leg Status: Acute Problem Specific Plan: Monitor Clinically, Repeat Labs Problem Text: 12/29 Rocephin D6 12/28/18: Much improved. He remains on Ceftriaxone D#5. We may want to consider transitioning him to a PO abx He is currently on ceftriaxone D# 4 Vanco d/c'd (6) Alcohol abuse Status: Chronic Problem Text: While it has been difficult to get a clear picture of this from the patient, review of his chart seems that he typically drinks at least 6 beers a day. This may explain why sedating and has been more difficult. We should consider using the CIWA scale once he is extubated and no longer sedated. (7) OSIRIS (obstructive sleep apnea) Status: Chronic Response to Treatment: Uncontrolled Problem Text: 12/28/18:Pulmonary to start CPAP tonight He has a known history of sleep apnea but is noncompliant with CPAP. 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 This was determined to be se condary to chronic hypoxia from his uncontrolled sleep apnea and likely his long history of smoking. From their note in October of this year it seems that they are targeting a hematocrit of around 54, although this is not a strict target. They certainly encourage phlebotomy if his hematocrit exceeds 60. (9) Traumatic brain injury Status: Chronic Problem Text: The patient is currently sedated. It is important for those caring for him to knows that he suffers from a traumatic brain injury and has generally been described as a crass person. Some of his behaviors that may be noted after he is brought out of sedation may be baseline rather than continued confusion. (10) History of DVT (deep vein thrombosis) Status: Chronic Problem Text: He has had at least 2 lower extremity DVTs in his life. Hematology had determined that lifelong anticoagulation was appropriate for him. He is currently anticoagulated with Xarelto. (11) Physical deconditioning Status: Chronic Problem Text: 12/29 + PT-lives c roommate, but rarely around Plan/VTE VTE Prophylaxis Ordered?: Yes (on Xarelto) VS, I&O, 24H, Fishbone Vital Signs/I&O Vital Signs Date Time Temp Pulse Resp B/P (MAP) Pulse Ox O2 Delivery O2 Flow Rate FiO2 12/29/18 08:15 84 130/72 12/29/18 08:00 8.0 12/29/18 08:00 98.1 24 89 12/28/18 20:34 Nasal Cannula 12/28/18 08:00 30 I&O- Last 24 Hours up to 6 AM 12/29/18 06:00 Intake Total 3200 ml Output Total 5955 ml Balance -2755 ml Laboratory Data 24H LABS Laboratory Tests 2 12/29/18 04:31: Nucleated Red Blood Cells % (auto) 0.0, Prothrombin Time 13.8, Prothromb Time International Ratio 1.09, Anion Gap 5L, Glomerular Filtration Rate > 60.0, Blood Urea Nitrogen 36H, Creatinine 1.16, Sodium Level 139, Potassium Level 3.9, Chloride Level 94L, Carbon Dioxide Level 40H, Calcium Level 9.3, Aspartate Amino Transf (AST/SGOT) 54H, Alanine Aminotransferase (ALT/SGPT) 172H, Alkaline Phosphatase 69, Total Bilirubin 0.9, Total Protein 7.6, Albumin 2.9L, Albumin/Globulin Ratio 0.62L CBC/BMP Laboratory Tests 12/29/18 04:31 Red Blood Count 5.15, Mean Corpuscular Volume 106.4 H, Mean Corpuscular Hemoglobin 32.8, Mean Corpuscular Hemoglobin Concent 30.8 L, Red Cell Distribution Width 14.2, Calcium Level 9.3, Aspartate Amino Transf (AST/SGOT) 54 H, Alanine Aminotransferase (ALT/SGPT) 172 H, Alkaline Phosphatase 69, Total Bilirubin 0.9, Total Protein 7.6, Albumin 2.9 L Microbiology Microbiology 12/23/18 Blood Culture - Final, Complete NO GROWTH AFTER 5 DAYS 12/23/18 Blood Culture - Final, Complete NO GROWTH AFTER 5 DAYS 12/24/18 Gram Stain - Final, Complete 12/24/18 Sputum Culture - Final, Complete 12/24/18 MRSA Screen - Final, Complete EBONY CONRAD PA-C Dec 29, 2018 10:59 Rg Gray M.D. Dec 29, 2018 14:37
--- NOTE | 2018-12-29 11:36 | CCN ---
DATE OF SERVICE: 12/29/2018 The patient was seen and examined this morning during bedside rounds. The patient was on tabletop bilateral positive airway pressure (BiPAP) overnight, which he tolerated well. This morning, he reports that he has no shortness of breath. No chest pains. No fevers or chills. Has not had any nausea or vomiting. Yesterday, he was attempted to sit up in bed, which he was able to do. Physical therapy earlier today attempted to get him out of bed into a chair, but he was still very weak. PHYSICAL EXAMINATION: Temperature 98.1, pulse 84, respirations 24, blood pressure 130/72, O2 sat 89% on 6 liters nasal cannula. Input 2.4 liters, output 6.5, net negative approximately 4 liters. General: The patient is a morbidly obese male lying in bed on nasal cannula oxygen, in no acute respiratory distress. He is awake and alert and following commands appropriately. HEENT: Normocephalic, atraumatic. Pupils reactive to light bilaterally. Neck is supple. Mucous membranes are moist. Cardiovascular: Regular rate and rhythm. Normal S1, S2. Unable to appreciate any murmurs. Pulmonary: There are improved breath sounds noted bilaterally with some few crackles at the bases. Abdomen: Obese, soft, nontender, no anasarca noted. Lower extremities: There is improvement in his lower extremity edema bilaterally. He has wrinkling now in his lower extremities and chronic venous stasis changes bilaterally. LABORATORIES: WBC 12.7, hemoglobin 16.9, platelets 236. Chemistry: Sodium is 139, potassium 3.9, chloride 94, bicarbonate 40, BUN 36, creatinine 1.16, glucose is 104. ASSESSMENT AND PLAN: Mr. Mackey is a 58-year-old male with history of hypertension, hepatitis C, chronic obstructive pulmonary disease (COPD), obstructive sleep apnea (OSIRIS) noncompliant on continuous positive airway pressure (CPAP), who presented with acute hypoxemic respiratory failure and acute on chronic hypercarbic respiratory failure, likely in the setting of decompensated congestive heart failure (CHF). The patient was initially placed on BiPAP. However, he had worsening hypoxia and infiltrates on chest x-ray, and so he was intubated and placed on mechanical ventilation with concern for possible acute respiratory distress syndrome (ARDS). Multifocal pneumonia was also in the differential, although he had been afebrile and did not have any significant leukocytosis on admission. 1. Acute on chronic hypercarbic respiratory failure and acute hypoxemic respiratory failure in the setting of decompensated congestive heart failure and also possible acute respiratory distress syndrome, now less likely multifocal pneumonia. The patient also has history of OSIRIS and suspect obesity hypoventilation syndrome (OHS) and has been noncompliant on CPAP at home. The patient tolerated tabletop BiPAP overnight with settings of 15/8 and 30% FIO2. Will continue with the tabletop BiPAP at night and with naps. The patient reports his last sleep study was more than 10 years ago. He thinks possibly 12 years ago. He has been referred for a sleep evaluation, but he has not had that appointment done yet. Discussed that given his sleep study was such a long time ago that he would need a new sleep study and a titration study before he will be able to get a CPAP machine covered by insurance. He will need a followup with pulmonary on discharge for his sleep testing and evaluation. The patient continues to require nasal cannula oxygen supplementation, currently on 6 liters per minute. He was not on nasal cannula oxygen at home, but he does have some evidence of mild polycythemia and suspect he may have some chronic hypoxemia related to his OHS/OSIRIS. Suspect some of his hypoxia now is related to atelectasis as well as resolving ARDS Will give the patient incentive spirometer and encourage him to be out of bed to chair today as tolerated. The patient appears to have been diuresing well. Will transition him to by mouth torsemide today of 40 mg daily and continue to monitor his input and output. He may need further adjustments of torsemide prior to his discharge. Continue with Mya for a history of possible COPD. He can get pulmonary function testing as an outpatient. 2. Acute renal failure, likely cardiorenal secondary to his decompensated congestive heart failure (CHF). His creatinine has continued to improve with dialysis, although it did trend up slightly today. He does have a component of likely metabolic alkalosis in addition to his chronic respiratory acidosis. Continue with torsemide. Continue to monitor electrolytes and replete as needed. Continue to monitor his input and output. The patient was previously on an angiotensin receptor mi (ARB) prior to his admission. Will likely need to restart some of his home antihypertensive medications but may need adjustments. 3. Lower extremity cellulitis, which is improving. The patient can complete a 5-day course of antibiotics for his cellulitis. Can be changed to by mouth antibiotics. His other workup for infectious etiology has been negative, including his blood cultures and his sputum cultures. History of deep venous thrombosis (DVT). Continue Xarelto. Gastrointestinal (GI) prophylaxis. FULL CODE. TOTAL CRITICAL CARE TIME SPENT: Not including any procedures, approximately 35 minutes. OBEDD
[2018-12-29] MEDS: cefTRIAXone SOD 1 GM in D5W MINI-BAG PLUS 50 ML IV SCH (23:38)
[2018-12-30] VITALS (7 sets, daily range): BP systolic 109–143; BP diastolic 71–84; O2SAT 94
[2018-12-30] MEDS: IPRATROPIUM 0.5MG/ALBUTEROL 2.5MG INH SOL UD 3ML (DUONEB)(J7620) NEB SCH ×4 (02:59→19:52)
[2018-12-30 04:26] LABS: HEMATOCRIT 52.9 % (42.0-52.0); HEMOGLOBIN 16.4 g/dl (13.5-17.5); MEAN CORPUSCULAR HEMOGLOBIN 32.5 pg (27.0-33.0); PLATELET COUNT, AUTOMATED 245 10^3/uL (150-450); RED BLOOD COUNT 5.04 10^6/uL (4.30-6.10); WHITE BLOOD COUNT 12.8 10^3/uL (4.0-10.0)
[2018-12-30 04:39] LABS: INR 1.2; PROTHROMBIN TIME 14.9 SECONDS (11.8-14.0)
[2018-12-30 04:49] LABS: ALBUMIN 2.7 GM/DL (3.2-5.2); ALT/SGPT 121 U/L (12-78); BILIRUBIN,TOTAL 0.8 MG/DL (0.2-1.0); BLOOD UREA NITROGEN 34 MG/DL (7-18); CALCIUM LEVEL 8.8 MG/DL (8.5-10.1); CARBON DIOXIDE LEVEL 38 MEQ/L (21-32); CHLORIDE LEVEL 93 MEQ/L (98-107); CREATININE FOR GFR 0.95 MG/DL (0.70-1.30); GLOMERULAR FILTRATION RATE > 60.0 (>56); GLUCOSE, FASTING 129 MG/DL (70-100); POTASSIUM SERUM 3.4 MEQ/L (3.5-5.1); SODIUM LEVEL 137 MEQ/L (136-145); TOTAL PROTEIN 6.8 GM/DL (6.4-8.2)
[2018-12-30] MEDS: RIVAROXABAN 20 MG TAB (XARELTO) PO SCH (08:41)
[2018-12-30] MEDS: POLYTRIM OPTH DROPS 10ML OU SCH ×4 (08:41→21:29)
[2018-12-30] MEDS: PANTOPRAZOLE 40MG INJ (PROTONIX) (C9113) IV SCH (08:41)
[2018-12-30] MEDS: SENNA 8.6 MG TAB (SENOKOT) PO SCH (08:41)
[2018-12-30] MEDS: TORSEMIDE 20 MG TAB PO SCH (08:41)
[2018-12-30] MEDS: DOCUSATE SODIUM 100 MG CAP PO SCH ×2 (08:41→21:29)
[2018-12-30] MEDS: amLODIPine 5 MG TAB PO SCH (08:52)
[2018-12-30] MEDS ORDERED: POTASSIUM CHLORIDE 10 MEQ SR TABLET PO ONE (09:45)
--- NOTE | 2018-12-30 09:58 | IPNPDOC ---
Subjective Date Seen The patient was seen on 12/30/18. Subjective Chief Complaint/HPI Pt this morning tells me that he is ready to go home. He is feeling great. General: Denies: Fatigue Constitutional: Denies: Chills, Fever Pulmonary: Denies: Dyspnea, Cough Cardiovascular: Denies: Chest Pain, Palpitations Gastrointestinal: Denies: Nausea, Vomiting, Diarrhea Neurological: Reports: Weakness Psych: Reports: Mood Normal Objective Physical Examination General Exam: Positive: Alert, No Acute Distress Neck Exam: Positive: Supple; Negative: JVD Chest Exam: Positive: Diminished (bibasilar); Negative: Wheezing Heart Exam: Positive: Rate Normal, Regular Rhythm, Normal S1, Normal S2; Negative: Murmurs Abdomen Exam: Positive: Normal bowel sounds, Soft; Negative: Tenderness Extremity Exam: Positive: Edema (trace BL), Other (chronic venous stasis dermatitis) Skin Exam: Positive: Lesion (the open lesion on his left anterior tibial area is covered) Neuro Exam: Positive: Normal Speech Psych Exam: Positive: Mental status NL Assessment /Plan Assessment Patient seen, agree with note. Patient will need to pass PT prior to discharge; discussed with patient, and he voiced understanding, as well as enthusiasm to go home. Denied any complaints. -- CDT Problems (1) Acute on chronic respiratory failure with hypoxia and hypercapnia Status: Acute Discussed With: Health Technical Writer, Patient Problem Specific Plan: Monitor Clinically, Repeat Labs Problem Text: 12/30 Cont to show improvement, will need Sleep study at f/u. 12/29 Mgmt has been per Pulm/Int - He cont to show improvement, stressed importance of CPAP device upon d/c 12/28/18: Improving. Patient's BiPAP discontinued. He remains on nasal cannula 6 L. Pulmonary continues to follow. He will use CPAP tonight. Solumedrol to be d/c by pulmonary today He is currently intubated and managed by pulmonary/critical care for this problem. Per the reports he seems to making slow progress toward recovery. (2) Acute congestive heart failure Status: Acute Response to Treatment: Stable Problem Specific Plan: Monitor Clinically Problem Text: 12/30 Appears compensated. 12/29 has been transitioned to PO torsemide. 12/28/18: Remains on Lasix 60mg IV bid. Per pulmonary he may be able to transition to Torsemide 40 mg po q day tomorrow. Cre 1.10 12/27 - continues to have good diuresis on current dose of IV Lasix Echocardiogram continues to show normal left ventricular systolic function. A cardiac nuclear stress test from 12/13/18 done through [facility] showed normal ejection fraction (63%). (3) Acute respiratory distress syndrome (ARDS) Status: Acute Response to Treatment: Improving Discussed With: Health Technical Writer Problem Text: Based on the increased pressure and FiO2 needed it seems that he likely has an element of ARDS. We'll defer this to pulmonology/critical care. (4) FRITZ (acute kidney injury) Status: Resolved Problem Specific Plan: Repeat Labs Problem Text: 12/27 - renal function improving with diuresis (5) Cellulitis of left leg Status: Acute Problem Specific Plan: Monitor Clinically, Repeat Labs Problem Text: 12/30 Completed Rocephin D7. Will transition to Keflex 500 mg TID. 12/29 Rocephin D6 12/28/18: Much improved. He remains on Ceftriaxone D#5. We may want to consider transitioning him to a PO abx He is currently on ceftriaxone D# 4 Vanco d/c'd (6) Alcohol abuse Status: Chronic Problem Text: While it has been difficult to get a clear picture of this from the patient, review of his chart seems that he typically drinks at least 6 beers a day. This may explain why sedating and has been more difficult. We should consider using the CIWA scale once he is extubated and no longer sedated. (7) OSIRIS (obstructive sleep apnea) Status: Chronic Response to Treatment: Uncontrolled Problem Text: 12/28/18:Pulmonary to start CPAP tonight He has a known history of sleep apnea but is noncompliant with CPAP. 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 This was determined to be secondary to chronic hypoxia from his uncontrolled sleep apnea and likely his long history of smoking. From their note in October of this year it seems that they are targeting a hematocrit of around 54, although this is not a strict target. They certainly encourage phlebotomy if his hematocrit exceeds 60. (9) Traumatic brain injury Status: Chronic Problem Text: The patient is currently sedated. It is important for those caring for him to knows that he suffers from a traumatic brain injury and has generally been described as a crass person. Some of his behaviors that may be noted after he is brought out of sedation may be baseline rather than continued confusion. (10) History of DVT (deep vein thrombosis) Status: Chronic Problem Text: He has had at least 2 lower extremity DVTs in his life. Hematolog y had determined that lifelong anticoagulation was appropriate for him. He is currently anticoagulated with Xarelto. (11) Physical deconditioning Status: Chronic Problem Text: 12/29 + PT-lives c roommate, but rarely around Plan/VTE VTE Prophylaxis Ordered?: Yes (on Xarelto) VS, I&O, 24H, Fishbone Vital Signs/I&O Vital Signs Date Time Temp Pulse Resp B/P (MAP) Pulse Ox O2 Delivery O2 Flow Rate FiO2 12/30/18 08:52 90 111/72 12/30/18 08:13 22 12/30/18 08:00 98.4 93 4.0 12/29/18 19:17 Nasal Cannula 12/28/18 08:00 30 I&O- Last 24 Hours up to 6 AM 12/30/18 06:00 Intake Total 2390 ml Output Total 4360 ml Balance -1970 ml Laboratory Data 24H LABS Laboratory Tests 2 12/30/18 04:02: Nucleated Red Blood Cells % (auto) 0.0, Prothrombin Time 14.9H, Prothromb Time International Ratio 1.20, Anion Gap 6L, Glomerular Filtration Rate > 60.0, Blood Urea Nitrogen 34H, Creatinine 0.95, Sodium Level 137, Potassium Level 3.4L, Chloride Level 93L, Carbon Dioxide Level 38H, Calcium Level 8.8, Aspartate Amino Transf (AST/SGOT) 34, Alanine Aminotransferase (ALT/SGPT) 121H, Alkaline Phosphatase 67, Total Bilirubin 0.8, Total Protein 6.8, Albumin 2.7L, Albumin/Globulin Ratio 0.66L CBC/BMP Laboratory Tests 12/30/18 04:02 Red Blood Count 5.04, Mean Corpuscular Volume 105.0 H, Mean Corpuscular Hemoglobin 32.5, Mean Corpuscular Hemoglobin Concent 31.0 L, Red Cell Distribution Width 13.9, Calcium Level 8.8, Aspartate Amino Transf (AST/SGOT) 34, Alanine Aminotransferase (ALT/SGPT) 121 H, Alkaline Phosphatase 67, Total Bilirubin 0.8, Total Protein 6.8, Albumin 2.7 L Microbiology Microbiology 12/23/18 Blood Culture - Final, Complete NO GROWTH AFTER 5 DAYS 12/23/18 Blood Culture - Final, Complete NO GROWTH AFTER 5 DAYS 12/24/18 Gram Stain - Final, Complete 12/24/18 Sputum Culture - Final, Complete 12/24/18 MRSA Screen - Final, Complete EBONY CONRAD PA-C Dec 30, 2018 09:58 ERICKA GARCIA DO Dec 30, 2018 23:23
[2018-12-30] MEDS: CEPHALEXIN 500 MG CAP PO SCH ×2 (13:42→21:29)
[2018-12-31] VITALS: O2SAT 94
[2018-12-31] MEDS: IPRATROPIUM 0.5MG/ALBUTEROL 2.5MG INH SOL UD 3ML (DUONEB)(J7620) NEB SCH ×4 (01:45→19:55)
[2018-12-31] MEDS: CEPHALEXIN 500 MG CAP PO SCH ×3 (05:43→20:38)
[2018-12-31 06:00] VITALS: BP 150/95
[2018-12-31 06:42] LABS: HEMOGLOBIN 16.3 g/dl (13.5-17.5); MEAN CORPUSCULAR HEMOGLOBIN 32.4 pg (27.0-33.0); MEAN CORPUSCULAR HGB CONC 30.8 g/dl (32.0-36.5); MEAN CORPUSCULAR VOLUME 105.4 fl (80.0-96.0); PLATELET COUNT, AUTOMATED 238 10^3/uL (150-450); RED BLOOD COUNT 5.03 10^6/uL (4.30-6.10); WHITE BLOOD COUNT 11.8 10^3/uL (4.0-10.0)
[2018-12-31 07:01] LABS: INR 1.13; PROTHROMBIN TIME 14.2 SECONDS (11.8-14.0)
[2018-12-31 07:02] LABS: ALBUMIN 2.9 GM/DL (3.2-5.2); ALT/SGPT 115 U/L (12-78); BILIRUBIN,TOTAL 0.8 MG/DL (0.2-1.0); BLOOD UREA NITROGEN 28 MG/DL (7-18); CALCIUM LEVEL 9.2 MG/DL (8.5-10.1); CARBON DIOXIDE LEVEL 40 MEQ/L (21-32); CHLORIDE LEVEL 93 MEQ/L (98-107); CREATININE FOR GFR 0.91 MG/DL (0.70-1.30); GLOMERULAR FILTRATION RATE > 60.0 (>56); GLUCOSE, FASTING 121 MG/DL (70-100); POTASSIUM SERUM 3.7 MEQ/L (3.5-5.1); SODIUM LEVEL 136 MEQ/L (136-145); TOTAL PROTEIN 6.9 GM/DL (6.4-8.2)
[2018-12-31] MEDS: POLYTRIM OPTH DROPS 10ML OU SCH ×5 (09:00→20:37)
[2018-12-31] MEDS: DOCUSATE SODIUM 100 MG CAP PO SCH ×2 (10:09→20:37)
[2018-12-31] MEDS: PANTOPRAZOLE 40MG TAB (PROTONIX) PO SCH (10:09)
[2018-12-31] MEDS: amLODIPine 5 MG TAB PO SCH (10:10)
[2018-12-31] MEDS: POTASSIUM CHLORIDE 10 MEQ SR TABLET PO SCH (10:10)
[2018-12-31] MEDS: SENNA 8.6 MG TAB (SENOKOT) PO SCH (10:11)
[2018-12-31] MEDS: RIVAROXABAN 20 MG TAB (XARELTO) PO SCH (10:11)
[2018-12-31] MEDS: TORSEMIDE 20 MG TAB PO SCH (10:11)
[2018-12-31 14:00] VITALS: BP 136/87
--- NOTE | 2018-12-31 21:54 | IPNPDOC ---
Subjective Date Seen The patient was seen on 12/31/18. Subjective Chief Complaint/HPI Patient is seen on Med Surg. He reports that he is doing great, and would like to go home. He has not yet been cleared by physical therapy. Nursing notes that if he takes his oxygen off, he desats very quickly, and he keeps "testing himself" by taking his oxygen off. Constitutional: Denies: Chills, Fever, Malaise Pulmonary: Denies: Dyspnea, Cough Cardiovascular: Denies: Chest Pain Gastrointestinal: Denies: Nausea, Vomiting, Diarrhea, Constipation Objective Physical Examination General Exam: Positive: Alert, No Acute Distress Neck Exam: Positive: Supple; Negative: JVD Chest Exam: Positive: Diminished (bibasilar); Negative: Wheezing Heart Exam: Positive: Rate Normal, Regular Rhythm, Normal S1, Normal S2; Negative: Murmurs Abdomen Exam: Positive: Normal bowel sounds, Soft; Negative: Tenderness Extremity Exam: Positive: Edema (trace BL), Other (chronic venous stasis dermatitis) Skin Exam: Positive: Lesion (the open lesion on his left anterior tibial area is covered) Neuro Exam: Positive: Normal Speech Psych Exam: Positive: Mental status NL Assessment /Plan Problems (1) Acute on chronic respiratory failure with hypoxia and hypercapnia Status: Acute Discussed With: Hydramatic Specialist, Patient Problem Specific Plan: Monitor Clinically, Repeat Labs Problem Text: 12/31 -- He has trouble keeping his oxygen on, and desaturates quickly 12/30 Cont to show improvement, will need Sleep study at f/u. 12/29 Mgmt has been per Pulm/Int - He cont to show improvement, stressed importance of CPAP device upon d/c 12/28/18: Improving. Patient's BiPAP discontinued. He remains on nasal cannula 6 L. Pulmonary continues to follow. He will use CPAP tonight. Solumedrol to be d/c by pulmonary today He is currently intubated and managed by pulmonary/critical care for this problem. Per the reports he seems to making slow progress toward recovery. (2) Acute congestive heart failure Status: Acute Response to Treatment: Stable Problem Specific Plan: Monitor Clinically Problem Text: 12/31 -- will check a CXR and BNP tomorrow, suspect he may tolerate a decrease in his torsemide dose 12/30 Appears compensated. 12/29 has been transitioned to PO torsemide. 12/28/18: Remains on Lasix 60mg IV bid. Per pulmonary he may be able to transition to Torsemide 40 mg po q day tomorrow. Cre 1.10 12/27 - continues to have good diuresis on current dose of IV Lasix Echocardiogram continues to show normal left ventricular systolic function. A cardiac nuclear stress test from 12/13/18 done through [facility] showed normal ejection fraction (63%). (3) Acute respiratory distress syndrome (ARDS) Status: Acute Response to Treatment: Improving Discussed With: Hydramatic Specialist Problem Text: Based on the increased pressure and FiO2 needed it seems that he likely has an element of ARDS. We'll defer this to pulmonology/critical care. (4) FRITZ (acute kidney injury) Status: Resolved Problem Specific Plan: Repeat Labs Problem Text: 12/27 - renal function improving with diuresis (5) Cellulitis of left leg Status: Acute Problem Specific Plan: Monitor Clinically, Repeat Labs Problem Text: 12/30 Completed Rocephin D7. Will transition to Keflex 500 mg TID. 12/29 Rocephin D6 12/28/18: Much improved. He remains on Ceftriaxone D#5. We may want to consider transitioning him to a PO abx He is currently on ceftriaxone D# 4 Vanco d/c'd (6) Alcohol abuse Status: Chronic Problem Text: While it has been difficult to get a clear picture of this from the patient, review of his chart seems that he typically drinks at least 6 beers a day. This may explain why sedating and has been more difficult. We should consider using the CIWA scale once he is extubated and no longer sedated. (7) OSIRIS (obstructive sleep apnea) Status: Chronic Response to Treatment: Uncontrolled Problem Text: 12/28/18:Pulmonary to start CPAP tonight He has a known history of sleep apnea but is noncompliant with CPAP. 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 This was determined to be secondary to chronic hypoxia from his uncontrolled sleep apnea and likely his long history of smoking. From their note in October of this year it seems that they are targeting a hematocrit of around 54, although this is not a strict target. They certainly encourage phlebotomy if his hematocrit exceeds 60. (9) Traumatic brain injury Status: Chronic Problem Text: The patient is currently sedated. It is important for those caring for him to knows that he suffers from a traumatic brain injury and has generally been described as a crass person. Some of his behaviors that may be noted after he is brought out of sedation may be baseline rather than continued confusion. (10) History of DVT (deep vein thrombosis) Status: Chronic Problem Text: He has had at least 2 lower extremity DVTs in his life. Hematology had determined that lifelong anticoagulation was appropriate for him. He is currently anticoagulated with Xarelto. (11) Physical deconditioning Status: Chronic Problem Text: 12/29 + PT-lives c roommate, but rarely around Plan/VTE VTE Prophylaxis Ordered?: Yes (on Xarelto) VS, I&O, 24H, Fishbone Vital Signs/I&O Vital Signs Date Time Temp Pulse Resp B/P (MAP) Pulse Ox O2 Delivery O2 Flow Rate FiO2 12/31/18 19:56 70 12/31/18 14:00 98.7 18 136/87 (103) 90 4.0 12/31/18 00:00 Nasal Cannula 12/28/18 08:00 30 I&O- Last 24 Hours up to 6 AM 12/31/18 06:00 Intake Total 1980 ml Output Total 3225 ml Balance -1245 ml Laboratory Data 24H LABS Laboratory Tests 2 12/31/18 06:16: Nucleated Red Blood Cells % (auto) 0.0, Prothrombin Time 14.2H, Prothromb Time International Ratio 1.13, Anion Gap 3L, Glomerular Filtration Rate > 60.0, Blood Urea Nitrogen 28H, Creatinine 0.91, Sodium Level 136, Potassium Level 3.7, Chloride Level 93L, Carbon Dioxide Level 40H, Calcium Level 9.2, Aspartate Amino Transf (AST/SGOT) 35, Alanine Aminotransferase (ALT/SGPT) 115H, Alkaline Phosphatase 71, Total Bilirubin 0.8, Total Protein 6.9, Albumin 2.9L, Albumin/Globulin Ratio 0.73L CBC/BMP Laboratory Tests 12/31/18 06:16 Red Blood Count 5.03, Mean Corpuscular Volume 105.4 H, Mean Corpuscular Hemoglobin 32.4, Mean Corpuscular Hemoglobin Concent 30.8 L, Red Cell Distribution Width 13.8, Calcium Level 9.2, Aspartate Amino Transf (AST/SGOT) 35, Alanine Aminotransferase (ALT/SGPT) 115 H, Alkaline Phosphatase 71, Total B ilirubin 0.8, Total Protein 6.9, Albumin 2.9 L Microbiology Microbiology 12/23/18 Blood Culture - Final, Complete NO GROWTH AFTER 5 DAYS 12/23/18 Blood Culture - Final, Complete NO GROWTH AFTER 5 DAYS 12/24/18 Gram Stain - Final, Complete 12/24/18 Sputum Culture - Final, Complete 12/24/18 MRSA Screen - Final, Complete ERICKA GARCIA DO Dec 31, 2018 21:54
[2018-12-31 22:00] VITALS: BP 128/90
[2019-01-01] MEDS: IPRATROPIUM 0.5MG/ALBUTEROL 2.5MG INH SOL UD 3ML (DUONEB)(J7620) NEB SCH ×4 (01:01→19:53)
[2019-01-01] MEDS: CEPHALEXIN 500 MG CAP PO SCH ×3 (05:29→21:13)
[2019-01-01 06:00] VITALS: BP 135/87
[2019-01-01 06:37] LABS: HEMATOCRIT 52.6 % (42.0-52.0); HEMOGLOBIN 16.1 g/dl (13.5-17.5); MEAN CORPUSCULAR HEMOGLOBIN 31.8 pg (27.0-33.0); MEAN CORPUSCULAR HGB CONC 30.6 g/dl (32.0-36.5); PLATELET COUNT, AUTOMATED 243 10^3/uL (150-450); RED BLOOD COUNT 5.06 10^6/uL (4.30-6.10); WHITE BLOOD COUNT 10.2 10^3/uL (4.0-10.0)
[2019-01-01 06:51] LABS: INR 1.14; PROTHROMBIN TIME 14.3 SECONDS (11.8-14.0)
[2019-01-01 07:08] LABS: ALBUMIN 2.8 GM/DL (3.2-5.2); ALT/SGPT 107 U/L (12-78); BILIRUBIN,TOTAL 0.8 MG/DL (0.2-1.0); BLOOD UREA NITROGEN 26 MG/DL (7-18); CALCIUM LEVEL 8.7 MG/DL (8.5-10.1); CARBON DIOXIDE LEVEL 39 MEQ/L (21-32); CHLORIDE LEVEL 94 MEQ/L (98-107); CREATININE FOR GFR 0.92 MG/DL (0.70-1.30); GLOMERULAR FILTRATION RATE > 60.0 (>56); GLUCOSE, FASTING 115 MG/DL (70-100); POTASSIUM SERUM 3.7 MEQ/L (3.5-5.1); SODIUM LEVEL 136 MEQ/L (136-145); TOTAL PROTEIN 7.2 GM/DL (6.4-8.2)
[2019-01-01 07:52] VITALS: O2SAT 96
[2019-01-01] MEDS: SENNA 8.6 MG TAB (SENOKOT) PO SCH (09:13)
[2019-01-01] MEDS: amLODIPine 5 MG TAB PO SCH (09:13)
[2019-01-01] MEDS: DOCUSATE SODIUM 100 MG CAP PO SCH ×2 (09:13→21:13)
[2019-01-01] MEDS: POLYTRIM OPTH DROPS 10ML OU SCH ×4 (09:14→21:13)
[2019-01-01] MEDS: TORSEMIDE 20 MG TAB PO SCH (09:14)
[2019-01-01] MEDS: PANTOPRAZOLE 40MG TAB (PROTONIX) PO SCH (09:14)
[2019-01-01] MEDS: RIVAROXABAN 20 MG TAB (XARELTO) PO SCH (09:14)
[2019-01-01] MEDS: POTASSIUM CHLORIDE 10 MEQ SR TABLET PO SCH (09:14)
[2019-01-01 14:00] VITALS: BP 143/81
--- NOTE | 2019-01-01 14:03 | REP ---
Clinical: CHF. Technique: PA and lateral. Comparison: 12/27/2018. Findings: Cardiomegaly is again appreciated. Elements of pulmonary vascular congestion are suggested but aeration is overall improved compared to prior examination and the previously noted left lower lobe consolidation/effusion and right basilar atelectasis have essentially resolved. No pneumothorax. Skeletal structures intact. Impression: Cardiomegaly. Mild pulmonary vascular congestion. Pulmonary edema has resolved. No focal consolidation or effusion. Electronically Signed by Lorenzo Ronquillo MD 01/01/2019 08:31 A
--- NOTE | 2019-01-01 17:44 | IPNPDOC ---
Subjective Date Seen The patient was seen on 01/01/19. Subjective Chief Complaint/HPI Patient has friends at bedside; they are his neighbors, and they are concerned with how he is caring for himself at home. He has been having a lot of trouble keeping his oxygen on. He becomes quickly agitated when his friends suggest that perhaps he should drink less. They states that they have never seen his lower extremities look this good. Constitutional: Denies: Chills, Fever Pulmonary: Denies: Dyspnea, Cough Cardiovascular: Denies: Chest Pain Gastrointestinal: Denies: Nausea, Vomiting, Diarrhea, Constipation Psych: Reports: Mood Normal (labile ) Objective Physical Examination General Exam: Positive: Alert, No Acute Distress Neck Exam: Positive: Supple; Negative: JVD Chest Exam: Positive: Diminished (bibasilar); Negative: Wheezing Heart Exam: Positive: Rate Normal, Regular Rhythm, Normal S1, Normal S2; Negative: Murmurs Abdomen Exam: Positive: Normal bowel sounds, Soft; Negative: Tenderness Extremity Exam: Positive: Edema (trace BL), Other (chronic venous stasis dermatitis) Skin Exam: Positive: Lesion (the open lesion on his left anterior tibial area is covered) Neuro Exam: Positive: Normal Speech Psych Exam: Positive: Mental status NL Assessment /Plan Problems (1) Acute on chronic respiratory failure with hypoxia and hypercapnia Status: Acute Discussed With: Salesforce Business Analyst, Patient Problem Specific Plan: Monitor Clinically, Repeat Labs Problem Text: 12/31 -- He has trouble keeping his oxygen on, and desaturates quickly 12/30 Cont to show improvement, will need Sleep study at f/u. 12/29 Mgmt has been per Pulm/Int - He cont to show improvement, stressed importance of CPAP device upon d/c 12/28/18: Improving. Patient's BiPAP discontinued. He remains on nasal cannula 6 L. Pulmonary continues to follow. He will use CPAP tonight. Solumedrol to be d/c by pulmonary today He is currently intubated and managed by pulmonary/critical care for this p [place]. Per the reports he seems to making slow progress toward recovery. (2) Acute congestive heart failure Status: Acute Response to Treatment: Stable Problem Specific Plan: Monitor Clinically Problem Text: 01/01 -- He has diuresed a lot, and appears euvolemic right now; I decreased his torsemide. This will require monitoring. 12/31 -- will check a CXR and BNP tomorrow, suspect he may tolerate a decrease in his torsemide dose 12/30 Appears compensated. 12/29 has been transitioned to PO torsemide. 12/28/18: Remains on Lasix 60mg IV bid. Per pulmonary he may be able to transition to Torsemide 40 mg po q day tomorrow. Cre 1.10 12/27 - continues to have good diuresis on current dose of IV Lasix Echocardiogram continues to show normal left ventricular systolic function. A cardiac nuclear stress test from 12/13/18 done through [facility] showed normal ejection fraction (63%). (3) Acute respiratory distress syndrome (ARDS) Status: Acute Response to Treatment: Improving Discussed With: Salesforce Business Analyst Problem Text: Based on the increased pressure and FiO2 needed it seems that he likely has an element of ARDS. We'll defer this to pulmonology/critical care. (4) Cellulitis of left leg Status: Acute Problem Specific Plan: Monitor Clinically, Repeat Labs Problem Text: 12/30 Completed Rocephin D7. Will transition to Keflex 500 mg TID. 12/29 Rocephin D6 12/28/18: Much improved. He remains on Ceftriaxone D#5. We may want to consider transitioning him to a PO abx He is currently on ceftriaxone D# 4 Vanco d/c'd (5) FRITZ (acute kidney injury) Status: Resolved Problem Specific Plan: Repeat Labs Problem Text: 12/27 - renal function improving with diuresis (6) Alcohol abuse Status: Chronic Problem Text: While it has been difficult to get a clear picture of this from the patient, review of his chart seems that he typically drinks at least 6 beers a day. This may explain why sedating and has been more difficult. We should consider using the CIWA scale once he is extubated and no longer sedated. (7) OSIRIS (obstructive sleep apnea) Status: Chronic Response to Treatment: Uncontrolled Problem Text: 12/28/18:Pulmonary to start CPAP tonight He has a known history of sleep apnea but is noncompliant with CPAP. 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 This was determined to be se condary to chronic hypoxia from his uncontrolled sleep apnea and likely his long history of smoking. From their note in October of this year it seems that they are targeting a hematocrit of around 54, although this is not a strict target. They certainly encourage phlebotomy if his hematocrit exceeds 60. (9) Physical deconditioning Status: Chronic Problem Text: 01/01 -- He will need to be cleared by PT prior to discharge. He has supportive friends in the area, but they will not be nearby after summer. 12/29 + PT-lives c roommate, but rarely around (10) Traumatic brain injury Status: Chronic Problem Text: 01/01 -- Friends agree that current speech and behavior is his baseline. The patient is currently sedated. It is important for those caring for him to knows that he suffers from a traumatic brain injury and has generally been described as a crass person. Some of his behaviors that may be noted after he is brought out of sedation may be baseline rather than continued confusion. (11) History of DVT (deep vein thrombosis) Status: Chronic Problem Text: He has had at least 2 lower extremity DVTs in his life. Hematology had determined that lifelong anticoagulation was appropriate for him. He is currently anticoagulated with Xarelto. Plan/VTE VTE Prophylaxis Ordered?: Yes (on Xarelto) VS, I&O, 24H, Fishbone Vital Signs/I&O Vital Signs Date Time Temp Pulse Resp B/P (MAP) Pulse Ox O2 Delivery O2 Flow Rate FiO2 01/01/19 14:00 97.8 87 18 143/81 (101) 99 4.0 01/01/19 07:52 Nasal Cannula 12/28/18 08:00 30 I&O- Last 24 Hours up to 6 AM 01/01/19 06:00 Intake Total 890 ml Output Total 3650 ml Balance -2760 ml Laboratory Data 24H LABS Laboratory Tests 2 12/31/18 22:01: IV-Mmt-Q-Type Natriuretic Peptide 223H 01/01/19 05:56: Nucleated Red Blood Cells % (auto) 0.0, Prothrombin Time 14.3H, Prothromb Time International Ratio 1.14, Anion Gap 3L, Glomerular Filtration Rate > 60.0, Blood Urea Nitrogen 26H, Creatinine 0.92, Sodium Level 136, Potassium Level 3.7, Chloride Level 94L, Carbon Dioxide Level 39H, Calcium Level 8.7, Aspartate Amino Transf (AST/SGOT) 38H, Alanine Aminotransferase (ALT/SGPT) 107H, Alkaline Phosphatase 73, Total Bilirubin 0.8, Total Protein 7.2, Albumin 2.8L, Albumin/Globulin Ratio 0.64L CBC/BMP Laboratory Tests 01/01/19 05:56 Red Blood Count 5.06, Mean Corpuscular Volume 104.0 H, Mean Corpuscular Hemoglobin 31.8, Mean Corpuscular Hemoglobin Concent 30.6 L, Red Cell Distribution Width 13.6, Calcium Level 8.7, Aspartate Amino Transf (AST/SGOT) 38 H, Alanine Aminotransferase (ALT/SGPT) 107 H, Alkaline Phosphatase 73, Total Bilirubin 0.8, Total Protein 7.2, Albumin 2.8 L Microbiology Microbiology 12/23/18 Blood Culture - Final, Complete NO GROWTH AFTER 5 DAYS 12/23/18 Blood Culture - Final, Complete NO GROWTH AFTER 5 DAYS 12/24/18 Gram Stain - Final, Complete 12/24/18 Sputum Culture - Final, Complete 12/24/18 MRSA Screen - Final, Complete ERICKA GARCIA DO Jan 01, 2019 17:44
[2019-01-01 19:53] VITALS: O2SAT 94
[2019-01-01 22:00] VITALS: BP 145/85
[2019-01-01 22:21] VITALS: O2SAT 90
[2019-01-02] MEDS: IPRATROPIUM 0.5MG/ALBUTEROL 2.5MG INH SOL UD 3ML (DUONEB)(J7620) NEB SCH ×4 (01:56→20:00)
[2019-01-02] MEDS: CEPHALEXIN 500 MG CAP PO SCH ×3 (05:18→21:34)
[2019-01-02 06:00] VITALS: BP 142/87
[2019-01-02 06:27] LABS: ALBUMIN 2.9 GM/DL (3.2-5.2); ALT/SGPT 93 U/L (12-78); BILIRUBIN,TOTAL 0.7 MG/DL (0.2-1.0); BLOOD UREA NITROGEN 22 MG/DL (7-18); CALCIUM LEVEL 9.2 MG/DL (8.5-10.1); CARBON DIOXIDE LEVEL 41 MEQ/L (21-32); CHLORIDE LEVEL 95 MEQ/L (98-107); CREATININE FOR GFR 0.86 MG/DL (0.70-1.30); GLOMERULAR FILTRATION RATE > 60.0 (>56); GLUCOSE, FASTING 99 MG/DL (70-100); POTASSIUM SERUM 3.9 MEQ/L (3.5-5.1); SODIUM LEVEL 139 MEQ/L (136-145); TOTAL PROTEIN 7.2 GM/DL (6.4-8.2)
[2019-01-02] MEDS: SENNA 8.6 MG TAB (SENOKOT) PO SCH (08:03)
[2019-01-02] MEDS: POTASSIUM CHLORIDE 10 MEQ SR TABLET PO SCH (08:03)
[2019-01-02] MEDS: DOCUSATE SODIUM 100 MG CAP PO SCH ×2 (08:04→21:00)
[2019-01-02] MEDS: TORSEMIDE 20 MG TAB PO SCH (08:04)
[2019-01-02] MEDS: RIVAROXABAN 20 MG TAB (XARELTO) PO SCH (08:04)
[2019-01-02] MEDS: PANTOPRAZOLE 40MG TAB (PROTONIX) PO SCH (08:05)
[2019-01-02] MEDS: amLODIPine 5 MG TAB PO SCH (08:05)
[2019-01-02] MEDS: POLYTRIM OPTH DROPS 10ML OU SCH ×4 (08:05→21:34)
[2019-01-02 11:26] LABS: ABG BASE EXCESS 11.1 (-2.0-2.0); ABG HCO3 39.5 MEQ/L (22.0-26.0); ABG O2 SATURATION 94.6 % (95.0-99.0); ABG PARTIAL PRESSURE CO2 66.6 mmHg (35.0-45.0); ABG STANDARD HCO3 34.8 MEQ/L (22.0-26.0); ABG TOTAL CO2 41.5 MEQ/L (22.0-29.0); ABG pH (ARTERIAL) 7.391 UNITS (7.350-7.450)
--- NOTE | 2019-01-02 11:55 | DSES ---
[facility] FACILITY (SNF) SUMMARY DATE OF ADMISSION: 12/23/2018 DATE OF SNF: 01/02/2019 PRIMARY CARE PROVIDER: Lavelle Mcdonald MD ATTENDING: Today is Todd Noble MD. HISTORY: This is a 58-year-old male who has a history of traumatic brain injury, obstructive sleep apnea noncompliant with continuous positive airway pressure (CPAP), a smoker, deep venous thrombosis (DVT), who presented to [facility] with shortness of breath and cyanosis. Upon evaluation, he was felt to be in acute and chronic hypercarbic hypoxic respiratory failure. He was unable to provide a detailed history. Examination was concerning for decompensated heart failure. Critical care water pump assembler was consulted. Dr. Boyle was on. The patient was admitted to the hospital for acute respiratory failure into the intensive care unit. He was also found to have acute renal failure with hyperkalemia. During his hospitalization, he was attended to by Dr. Boyle. The patient required intubation for respiratory support while in the intensive care unit. He was given Lasix intravenously for diuresis and monitoring his intake and output. His creatinine continued to improve. He was also given Solu-Medrol, as well as DuoNebs. His acute renal failure improved with diuresis and intravenous (IV) administration of Lasix, although his bicarbonate did increase and required additional monitoring. He developed transaminitis. It was felt to be likely secondary to hepatitic congestion from decompensated heart failure. He also was noted to have a lower extremity cellulitis and potentially multifocal pneumonia, although the patient was without fever or significant leukocytosis and his sputum culture was negative. He did complete IV ceftriaxone for treatment of lower extremity cellulitis and appeared to respond well to this. He was able to be successfully extubated, transitioned over to bilateral positive airway pressure (BiPAP) during sleeping which has provided additional respiratory support. The patient has been counseled repeatedly in regard to use of BiPAP and encouraged compliance. He will need an outpatient sleep study. Will likely need to have a device arranged for him to utilize in the interim prior to the sleep study being coordinated. I have spoken with patient and family services about this, as well. I have spoken with the patient in regard to transitioning to short-term rehabilitation, and he is agreeable to this plan. His sister is at bedside. She also thinks that this is likely a good idea for him, as well. His discharge diagnoses include acute on chronic respiratory failure with hypoxia, hypercapnia, acute congestive heart failure, acute respiratory distress syndrome, and cellulitis of the left leg, acute kidney injury, alcohol abuse, obstructive sleep apnea, medical noncompliance, traumatic brain injury, polycythemia secondary to hypoxia, history of deep venous thrombosis. DISCHARGE MEDICATIONS AND PLAN: Will be summarized at discharge from the hospital.
[2019-01-02 12:50] VITALS: O2SAT 92
[2019-01-02 14:00] VITALS: BP 169/98
[2019-01-02 22:00] VITALS: BP 162/81
[2019-01-03] MEDS: IPRATROPIUM 0.5MG/ALBUTEROL 2.5MG INH SOL UD 3ML (DUONEB)(J7620) NEB SCH ×2 (02:00→07:32)
[2019-01-03 06:00] VITALS: BP 152/74
[2019-01-03] MEDS: CEPHALEXIN 500 MG CAP PO SCH (06:53)
[2019-01-03 08:20] LABS: HEMATOCRIT 51.7 % (42.0-52.0); HEMOGLOBIN 15.9 g/dl (13.5-17.5); MEAN CORPUSCULAR HEMOGLOBIN 32.8 pg (27.0-33.0); MEAN CORPUSCULAR HGB CONC 30.8 g/dl (32.0-36.5); MEAN CORPUSCULAR VOLUME 106.6 fl (80.0-96.0); PLATELET COUNT, AUTOMATED 249 10^3/uL (150-450); RED BLOOD COUNT 4.85 10^6/uL (4.30-6.10); WHITE BLOOD COUNT 10.1 10^3/uL (4.0-10.0)
[2019-01-03] MEDS: POLYTRIM OPTH DROPS 10ML OU SCH ×2 (08:20→13:00)
[2019-01-03] MEDS: POTASSIUM CHLORIDE 10 MEQ SR TABLET PO SCH (08:20)
[2019-01-03 08:21] VITALS: BP 124/83
[2019-01-03] MEDS: PANTOPRAZOLE 40MG TAB (PROTONIX) PO SCH (08:21)
[2019-01-03] MEDS: RIVAROXABAN 20 MG TAB (XARELTO) PO SCH (08:21)
[2019-01-03] MEDS: amLODIPine 5 MG TAB PO SCH (08:21)
[2019-01-03] MEDS: SENNA 8.6 MG TAB (SENOKOT) PO SCH (08:21)
[2019-01-03] MEDS: DOCUSATE SODIUM 100 MG CAP PO SCH (08:21)
[2019-01-03] MEDS: TORSEMIDE 20 MG TAB PO SCH (08:21)
[2019-01-03 08:52] LABS: ALBUMIN 2.7 GM/DL (3.2-5.2); ALT/SGPT 105 U/L (12-78); BILIRUBIN,TOTAL 0.5 MG/DL (0.2-1.0); BLOOD UREA NITROGEN 20 MG/DL (7-18); CALCIUM LEVEL 9.1 MG/DL (8.5-10.1); CARBON DIOXIDE LEVEL 40 MEQ/L (21-32); CHLORIDE LEVEL 103 MEQ/L (98-107); CREATININE FOR GFR 0.93 MG/DL (0.70-1.30); GLOMERULAR FILTRATION RATE > 60.0 (>56); GLUCOSE, FASTING 155 MG/DL (70-100); POTASSIUM SERUM 3.8 MEQ/L (3.5-5.1); SODIUM LEVEL 129 MEQ/L (136-145)
[2019-01-03] MEDS ORDERED: KLOR10TA76 PO (13:21)
[2019-01-03] MEDS ORDERED: TORS20TA2 PO (13:21)
[2019-01-03] MEDS ORDERED: PANT40TA3 PO (13:21)
[2019-01-03] MEDS ORDERED: IPRA0.00 NEB (13:21)
[2019-01-03] MEDS ORDERED: SENN18TA PO (13:21)
== END 2019-01-03 14:52 | disposition home or self-care (01) | DRG 208 ==
LOC: M ED 16:43 → M ED INP 20:40 → M ICU 22:14 → M MSPAV 12-30 15:23
PROVIDERS: ADMIT Internal Medicine; ATTEND Family Medicine
PROC: 5A1945Z Respiratory Ventilation, 24-96 Consecutive Hours (ICD-10-PCS; principal; 2018-12-24)
DX: J96.22 Acute and chronic respiratory failure with hypercapnia (principal); I50.31 Acute diastolic (congestive) heart failure; N17.9 Acute kidney failure, unspecified; E87.1 Hypo-osmolality and hyponatremia; L03.116 Cellulitis of left lower limb; E87.2 Acidosis; Z68.42 Body mass index [BMI] 45.0-49.9, adult; J44.1 Chronic obstructive pulmonary disease with (acute) exacerbation; J44.0 Chronic obstructive pulmonary disease with (acute) lower respiratory infection; I13.0 Hypertensive heart and chronic kidney disease with heart failure and stage 1 through stage 4 chronic kidney disease, or unspecified chronic kidney disease; J96.21 Acute and chronic respiratory failure with hypoxia; E87.5 Hyperkalemia; E66.01 Morbid (severe) obesity due to excess calories; Z87.820 Personal history of traumatic brain injury; Z79.899 Other long term (current) drug therapy; G47.33 Obstructive sleep apnea (adult) (pediatric); Z91.19 Patient's noncompliance with other medical treatment and regimen; F17.200 Nicotine dependence, unspecified, uncomplicated; F10.10 Alcohol abuse, uncomplicated; Z86.718 Personal history of other venous thrombosis and embolism; D75.1 Secondary polycythemia; B18.2 Chronic viral hepatitis C; M10.9 Gout, unspecified; N18.9 Chronic kidney disease, unspecified

== ENCOUNTER → 2019-01-11 | Outpatient (REF) | payer MEDICARE ==
[~2019-01-11] MED LIST changes: +AMIL5TAB4 PO; +AMLO5TAB6 PO; +IPRA0.00 NEB; +KLOR10TA76 PO; +LOSA50TA88 PO; +PANT40TA3 PO; +POLY2.5S OU; +SENN18TA PO; +TORS20TA2 PO
[2019-01-11 17:20] LABS: BLOOD UREA NITROGEN 17 MG/DL (7-18); CALCIUM LEVEL 8.6 MG/DL (8.5-10.1); CARBON DIOXIDE LEVEL 35 MEQ/L (21-32); CHLORIDE LEVEL 100 MEQ/L (98-107); CREATININE FOR GFR 1.12 MG/DL (0.70-1.30); GLOMERULAR FILTRATION RATE > 60.0 (>56); GLUCOSE, FASTING 92 MG/DL (70-100); POTASSIUM SERUM 4.8 MEQ/L (3.5-5.1); SODIUM LEVEL 139 MEQ/L (136-145)
== END ==
LOC: M SFHCCLAY 11:38
PROVIDERS: ATTEND Family Medicine
DX: I10 Essential (primary) hypertension (principal)

== ENCOUNTER → 2019-01-24 | Outpatient (REF) | payer MEDICARE ==
[2019-01-24 11:44] LABS: HEMATOCRIT 55.4 % (42.0-52.0); HEMOGLOBIN 17.4 g/dl (13.5-17.5); MEAN CORPUSCULAR HEMOGLOBIN 31.5 pg (27.0-33.0); MEAN CORPUSCULAR HGB CONC 31.4 g/dl (32.0-36.5); MEAN CORPUSCULAR VOLUME 100.2 fl (80.0-96.0); PLATELET COUNT, AUTOMATED 233 10^3/uL (150-450); RED BLOOD COUNT 5.53 10^6/uL (4.30-6.10); WHITE BLOOD COUNT 8.4 10^3/uL (4.0-10.0)
[2019-01-24 12:02] LABS: BLOOD UREA NITROGEN 15 MG/DL (7-18); CALCIUM LEVEL 8.8 MG/DL (8.5-10.1); CARBON DIOXIDE LEVEL 34 MEQ/L (21-32); CHLORIDE LEVEL 99 MEQ/L (98-107); CREATININE FOR GFR 0.93 MG/DL (0.70-1.30); GLOMERULAR FILTRATION RATE > 60.0 (>56); GLUCOSE, FASTING 125 MG/DL (70-100); POTASSIUM SERUM 4.6 MEQ/L (3.5-5.1); SODIUM LEVEL 139 MEQ/L (136-145)
== END ==
LOC: M SFHCCLAY 07:43
PROVIDERS: ATTEND Family Medicine
DX: D75.1 Secondary polycythemia (principal); I50.42 Chronic combined systolic (congestive) and diastolic (congestive) heart failure

== ENCOUNTER → 2019-02-02 | Outpatient (REF) | payer MEDICARE ==
[2019-02-02 14:03] LABS: BLOOD UREA NITROGEN 17 MG/DL (7-18); CALCIUM LEVEL 8.4 MG/DL (8.5-10.1); CARBON DIOXIDE LEVEL 32 MEQ/L (21-32); CHLORIDE LEVEL 101 MEQ/L (98-107); CREATININE FOR GFR 0.99 MG/DL (0.70-1.30); GLOMERULAR FILTRATION RATE > 60.0 (>56); GLUCOSE, FASTING 136 MG/DL (70-100); HEMATOCRIT 57.9 % (42.0-52.0); HEMOGLOBIN 18.1 g/dl (13.5-17.5); MEAN CORPUSCULAR HEMOGLOBIN 31.9 pg (27.0-33.0); MEAN CORPUSCULAR HGB CONC 31.3 g/dl (32.0-36.5); MEAN CORPUSCULAR VOLUME 102.1 fl (80.0-96.0); PLATELET COUNT, AUTOMATED 259 10^3/uL (150-450); POTASSIUM SERUM 4.6 MEQ/L (3.5-5.1); RED BLOOD COUNT 5.67 10^6/uL (4.30-6.10); SODIUM LEVEL 138 MEQ/L (136-145); WHITE BLOOD COUNT 12.4 10^3/uL (4.0-10.0)
== END ==
LOC: M SFHCCLAY 08:17
PROVIDERS: ATTEND Family Medicine
DX: I50.42 Chronic combined systolic (congestive) and diastolic (congestive) heart failure (principal); D75.1 Secondary polycythemia

== ENCOUNTER → 2019-02-07 | Outpatient (CLI) | payer MEDICARE ==
--- NOTE | 2019-02-14 12:40 | SLEEPCENT ---
DATE OF STUDY: 02/07/2019 ORDERED BY: Dr. Boyle Nocturnal polysomnography was performed for evaluation of sleep physiology in this patient with a history of excessive somnolence and nonrestorative sleep. The patient has a comorbidity of hypertension. 8 hours and 45 minutes of data were reviewed. There were 430 minutes of sleep identified. Sleep latency was short at 1.5 minutes. REM latency was normal at 95 minutes. Sleep architecture showed poor progression. Improvement was seen late in the study and there were five REM cycles noted over the course of test. The overall sleep efficiency was 82.5%. The electrocardiogram shows regular a supraventricular rhythm with some ectopy, average heart rate 74 beats per minute. EEG showed coarsening in background. No focal events were identified. There 309 respiratory events identified of 10 seconds in duration or greater for an apnea-hypopnea index of 43.1. Having clearly established the presence of obstructive sleep apnea syndrome early in testing, the study was stopped shortly after 11:00 p.m. for the application of pressure therapy. The patient was fit with a ResMed AirFit F20 full face mask of large size, 4 cm of water pressure were applied to the circuit and the lights were extinguished. Persistent respiratory events prompted an increase in CPAP pressure and despite optimal mask fit and minimal air leak, the patient was changed to a bilevel device and pressure further increased to an optimal inspiratory pressure 16 over expiratory pressure of 9. Persistent hypoxemia prompted the addition of supplemental oxygen. Best sleep was seen on a bilevel device inspiratory 16 over expiratory pressure of 9 with 3 liters of oxygen bled through the system. Despite this, the patient's oxygen saturation remained in the upper 80s. IMPRESSION: Severe obstructive sleep apnea syndrome (G47.33). Apnea-hypopnea index 43.1. RECOMMENDATION: Nightly use of pressure therapy using a bilevel device, inspiratory 16 over expiratory of 9, with 3 liters of oxygen bled through the system. cc: Zohra Light PA-C
== END ==
LOC: M SLEEP 19:49
PROVIDERS: ATTEND Internal Medicine Pulmonary Disease
DX: G47.30 Sleep apnea, unspecified (principal)

== ENCOUNTER → 2019-03-15 | Outpatient (REF) | payer MEDICARE ==
[2019-03-15 20:35] LABS: COMPLEMENT C3 127 MG/DL (90-180); COMPLEMENT C4 33 MG/DL (10-40); TOTAL PROTEIN 7.1 GM/DL (6.4-8.2)
[2019-03-15 20:37] LABS: URINE TOTAL PROTEIN 121.4 MG/DL (0-12)
[2019-03-16 13:23] LABS: ALBUMIN 4.15 GM/DL (3.29-5.55); ALBUMIN % 58.4 % (55.8-66.1); ALPHA-1-GLOBULINS 0.36 GM/DL (0.17-0.41); ALPHA-2-GLOBULINS % 10.6 % (7.1-11.8); BETA-1-GLOBULINS % 6.7 % (4.7-7.2); BETA-2-GLOBULINS % 6.2 % (3.2-6.5); GAMMA GLOBULIN % 13.1 % (11.1-18.8)
[2019-03-16 13:24] LABS: ALPHA-2-GLOBULINS 0.75 GM/DL (0.42-0.99); BETA-1-GLOBULINS 0.48 GM/DL (0.28-0.60); BETA-2-GLOBULINS 0.44 GM/DL (0.19-0.55); GAMMA GLOBULINS 0.93 GM/DL (0.65-1.58)
[2019-03-16 13:52] LABS: UPEP INTERPRETATION NO M-SPIKE NOTED; URINE VOLUME RANDOM ML
[2019-03-16 20:54] LABS: CRYOGLOBULINS NEGATIVE (NEGATIVE)
[2019-03-17 08:56] LABS: HEPATITIS B SURFACE ANTIBODY POSITIVE (POSITIVE)
[2019-03-17 09:04] LABS: HEPATITIS B SURFACE ANTIGEN NEGATIVE (NEGATIVE)
[2019-03-17 09:32] LABS: HEPATITIS B CORE ANTIBODY IGM NEGATIVE (NEGATIVE)
[2019-03-17 09:54] LABS: HEPATITIS C VIRUS ABY INDEX 9.6 INDEX (<0.8)
[2019-03-18 00:06] LABS: ANTINUCLEAR ANTIBODIES DIRECT Negative (Negative); Lyme Disease IgG/IgM Antibodie <0.91 ISR (0.00-0.90); Lyme Disease IgM Ab Quantitati <0.80 index (0.00-0.79)
== END ==
LOC: M LAB REF 17:19
PROVIDERS: ATTEND Internal Medicine Nephrology
DX: R80.9 Proteinuria, unspecified (principal)

== ENCOUNTER → 2019-03-21 | Outpatient (CLI) | payer MEDICARE ==
--- NOTE | 2019-03-21 09:28 | REP ---
URINARY BLADDER ULTRASOUND: Real-time sonographic evaluation of the urinary bladder performed. Bladder measures 17.2 x 12.2 x 8.2 cm for a total volume of 1124 mL. No mass or calculus is seen. There is no wall thickening. There are bilateral ureteral jets in the urinary bladder with Doppler color evaluation. Postvoid residual is 247 mL. This is 22% of the original volume. IMPRESSION: No mass or calculus. No wall thickening. Postvoid residual of 22%. Electronically Signed by Nickolas Burrell MD 03/21/2019 10:07 A
--- NOTE | 2019-03-21 09:28 | REP ---
RENAL ULTRASOUND: Real-time sonographic evaluation of the kidneys is performed. The kidneys are normal in size and echotexture, right kidney measuring 12.3 x 7.0 x 7.8 cm and left kidney 11.3 x 5.8 x 6.6 cm. There is no hydronephrosis bilaterally. Hypoechoic nodular structure in the region of the right renal pelvis measures 3.3. X 2.6 x 3.9 cm. I am uncertain whether this is related to the renal pelvis or could represent a cystis or solid nodule. No other abnormalities are seen bilaterally. IMPRESSION: No hydronephrosis. Possible cystic or solid nodule right renal pelvis. Recommend dedicated CT kidneys with and without contrast to further evaluate. Electronically Signed by Nickolas Burrell MD 03/21/2019 10:07 A
[2019-03-28 00:14] LABS: ANCA-ATYPICAL <1:20 titer (Neg:<1:20); ANTI DS-DNA AB <1:10 titer (.); CYTOPLASMIC NEUTROP AB ANCA-C <1:20 titer (Neg:<1:20); HEPATITIS C QUANTITATION HCV Not Detected IU/mL (.); PERINUCLEAR AB ANCA-P <1:20 titer (Neg:<1:20)
== END ==
LOC: M RAD 07:35
PROVIDERS: ATTEND Internal Medicine Nephrology
DX: N18.2 Chronic kidney disease, stage 2 (mild) (principal); I12.9 Hypertensive chronic kidney disease with stage 1 through stage 4 chronic kidney disease, or unspecified chronic kidney disease; R80.9 Proteinuria, unspecified; N28.89 Other specified disorders of kidney and ureter

== ENCOUNTER → 2019-04-11 | Outpatient (CLI) | payer MEDICARE ==
[~2019-04-11] MED LIST changes: +ISOVUE-370 76% 100ML VIAL (Q9967) As Ordered ONE
--- NOTE | 2019-04-11 11:54 | REP ---
CT abdomen without and with IV contrast: History: Chronic kidney disease stage 2. Proteinuria. Right renal pelvic neoplasm. CT contrast dose: 100 mL of intravenous Isovue 370 is administered. Comparison renal sonography March 21, 2019. This was read as showing a possible solid or cystic nodule in the right renal pelvis. Comparison CT study February 18, 2009. CT findings: Digital preliminary manager utilization radiograph shows surgical sutures in the anterior abdominal wall. Bowel gas pattern is unremarkable. The lung bases are clear. There are old ununited rib fractures on the left posterolaterally. No focal hepatic lesion is seen. There is mild fatty infiltration of the liver. Liver is normal in size. Spleen is unremarkable. There is a peripherally calcified 2.4 cm gallstone within the lumen of the gallbladder. No biliary ductal dilation is observed. No pancreatic abnormality is observed. No adrenal lesion is seen on either side. Pre and postcontrast images through the kidneys demonstrate that they are morphologically intact. No renal mass lesion is observed on either side. No hydronephrosis is seen. Delayed scan images show no filling defect in the collecting system on either side. There is no retroperitoneal mass or adenopathy. The patient is status post ventral hernia repair. Small and large intestinal bowel loops are unremarkable. Impression: Unremarkable CT study of the upper abdomen and kidneys. No renal mass lesion is observed. Cholelithiasis. Mild fatty infiltration of the liver. Electronically Signed by Chuckie Jeffries MD 04/11/2019 06:45 P
== END ==
LOC: M RAD 07:57
PROVIDERS: ATTEND Internal Medicine Nephrology
DX: K80.80 Other cholelithiasis without obstruction (principal); K76.0 Fatty (change of) liver, not elsewhere classified; N18.2 Chronic kidney disease, stage 2 (mild); R80.9 Proteinuria, unspecified; D41.11 Neoplasm of uncertain behavior of right renal pelvis
CPT/HCPCS: 74170; Q9967

== ENCOUNTER → 2019-04-19 | Outpatient (REF) | payer MEDICARE ==
[~2019-04-19] MED LIST changes: -ISOVUE-370 76% 100ML VIAL (Q9967) As Ordered ONE
[2019-04-19 16:25] LABS: HEMATOCRIT 57.5 % (42.0-52.0); HEMOGLOBIN 18.3 g/dl (13.5-17.5); MEAN CORPUSCULAR HEMOGLOBIN 33.3 pg (27.0-33.0); MEAN CORPUSCULAR HGB CONC 31.8 g/dl (32.0-36.5); MEAN CORPUSCULAR VOLUME 104.5 fl (80.0-96.0); PLATELET COUNT, AUTOMATED 244 10^3/uL (150-450); WHITE BLOOD COUNT 9.6 10^3/uL (4.0-10.0)
[2019-04-19 16:49] LABS: BLOOD UREA NITROGEN 18 MG/DL (7-18); CARBON DIOXIDE LEVEL 36 MEQ/L (21-32); CHLORIDE LEVEL 95 MEQ/L (98-107); CREATININE FOR GFR 0.88 MG/DL (0.70-1.30); GLOMERULAR FILTRATION RATE > 60.0 (>56); GLUCOSE, FASTING 92 MG/DL (70-100); POTASSIUM SERUM 5.1 MEQ/L (3.5-5.1); SODIUM LEVEL 135 MEQ/L (136-145)
== END ==
LOC: M SFHCCLAY 12:07
PROVIDERS: ATTEND Family Medicine
DX: I10 Essential (primary) hypertension (principal); M17.12 Unilateral primary osteoarthritis, left knee

== ENCOUNTER → 2019-07-24 | Outpatient (REF) | payer MEDICARE | LOC: M LABDRAWC 15:56 | PROVIDERS: ATTEND Surgery | DX: F10.10 Alcohol abuse, uncomplicated (principal); Z79.899 Other long term (current) drug therapy | CPT/HCPCS: 36415; G0480 ==

== ENCOUNTER → 2019-09-15 | Outpatient (CLI) | payer MEDICARE | LOC: M CLY 13:11 | DX: Z53.9 Procedure and treatment not carried out, unspecified reason (principal) ==

== ENCOUNTER → 2019-09-21 | Outpatient (REF) | payer MEDICARE ==
[2019-09-21 11:45] LABS: BLOOD UREA NITROGEN 16 MG/DL (7-18); CALCIUM LEVEL 8.6 MG/DL (8.5-10.1); CARBON DIOXIDE LEVEL 36 MEQ/L (21-32); CHLORIDE LEVEL 99 MEQ/L (98-107); CREATININE FOR GFR 0.99 MG/DL (0.70-1.30); GLOMERULAR FILTRATION RATE > 60.0 (>56); GLUCOSE, FASTING 177 MG/DL (70-100); POTASSIUM SERUM 4.7 MEQ/L (3.5-5.1); SODIUM LEVEL 138 MEQ/L (136-145)
== END ==
LOC: M SFHCCLAY 09:01
PROVIDERS: ATTEND Family Medicine
DX: I11.9 Hypertensive heart disease without heart failure (principal)

== ENCOUNTER → 2019-10-23 | Outpatient (REF) | payer MEDICARE ==
[2019-10-23 17:38] LABS: PERCENT SATURATION 18.2 % (19.7-50.0)
== END ==
LOC: M SFHCCLAY 10:56
PROVIDERS: ATTEND Family Medicine
DX: M25.50 Pain in unspecified joint (principal)

== ENCOUNTER → 2019-10-24 | Outpatient (REF) | payer MEDICARE ==
[2019-10-24 17:44] LABS: BLOOD UREA NITROGEN 17 MG/DL (7-18); CALCIUM LEVEL 8.2 MG/DL (8.5-10.1); CARBON DIOXIDE LEVEL 36 MEQ/L (21-32); CHLORIDE LEVEL 97 MEQ/L (98-107); CREATININE FOR GFR 0.88 MG/DL (0.70-1.30); GLOMERULAR FILTRATION RATE > 60.0 (>56); GLUCOSE, FASTING 160 MG/DL (70-100); POTASSIUM SERUM 5.2 MEQ/L (3.5-5.1); SODIUM LEVEL 136 MEQ/L (136-145)
== END ==
LOC: M SFHCCLAY 10:50
PROVIDERS: ATTEND Family Medicine
DX: E87.5 Hyperkalemia (principal)

== ENCOUNTER → 2019-11-23 | Outpatient (REF) | payer MEDICARE ==
[2019-11-24 11:46] LABS: BLOOD UREA NITROGEN 15 MG/DL (7-18); CALCIUM LEVEL 8.7 MG/DL (8.5-10.1); CARBON DIOXIDE LEVEL 34 MEQ/L (21-32); CHLORIDE LEVEL 97 MEQ/L (98-107); CREATININE FOR GFR 0.87 MG/DL (0.70-1.30); GLOMERULAR FILTRATION RATE > 60.0 (>56); GLUCOSE, FASTING 101 MG/DL (70-100); POTASSIUM SERUM 4.9 MEQ/L (3.5-5.1); SODIUM LEVEL 135 MEQ/L (136-145)
== END ==
LOC: M SFHCCLAY 14:58
PROVIDERS: ATTEND Family Medicine
DX: E87.5 Hyperkalemia (principal)

== ENCOUNTER → 2020-01-30 | Outpatient (REF) | payer MEDICARE ==
[~2020-01-30] MED LIST changes: +AMLO1TAB24; +AMLO1TAB24 PO; -AMLO5TAB6; -AMLO5TAB6 PO; +B-1100TA2 PO; +CARV3.12 PO; +LOSA100T50 PO; +PANT40TA29 PO; -PANT40TA3 PO
[2020-02-26 20:28] LABS: BASO # 0.1 10^3/uL (0.0-0.2); BASO % 0.7 % (0.0-1.0); EOS # 0.4 10^3/uL (0.0-0.5); EOS % 4.6 % (0.0-3.0); HEMATOCRIT 57.2 % (42.0-52.0); HEMOGLOBIN 18.3 g/dl (13.5-17.5); LYMPH # 2.2 10^3/uL (1.5-5.0); LYMPH % 25.7 % (24.0-44.0); MEAN CORPUSCULAR HEMOGLOBIN 33.2 pg (27.0-33.0); MEAN CORPUSCULAR VOLUME 103.8 fl (80.0-96.0); MONO # 0.6 10^3/uL (0.0-0.8); MONO % 7.4 % (0.0-5.0); NEUTROPHILS # 5.1 10^3/uL (1.5-8.5); NEUTROPHILS % 61.2 % (36.0-66.0); PLATELET COUNT, AUTOMATED 225 10^3/uL (150-450); RED BLOOD COUNT 5.51 10^6/uL (4.30-6.10); WHITE BLOOD COUNT 8.4 10^3/uL (4.0-10.0)
[2020-03-15 13:50] LABS: ALBUMIN 3.7 GM/DL (3.2-5.2); ALT/SGPT 28 U/L (12-78); BILIRUBIN,TOTAL 0.4 MG/DL (0.2-1.0); BLOOD UREA NITROGEN 12 MG/DL (7-18); CALCIUM LEVEL 8.4 MG/DL (8.5-10.1); CARBON DIOXIDE LEVEL 34 MEQ/L (21-32); CHLORIDE LEVEL 99 MEQ/L (98-107); CREATININE FOR GFR 0.89 MG/DL (0.70-1.30); GLOMERULAR FILTRATION RATE > 60.0 (>56); GLUCOSE, FASTING 131 MG/DL (70-100); POTASSIUM SERUM 4.5 MEQ/L (3.5-5.1); SODIUM LEVEL 135 MEQ/L (136-145); TOTAL 25(OH) VITAMIN D 24.1 NG/ML (30.0-100.0); TOTAL PROTEIN 6.9 GM/DL (6.4-8.2); URIC ACID 6.6 MG/DL (3.5-7.2); VITAMIN B12 LEVEL 298 PG/ML
== END ==
LOC: M SFHCCLAY 15:20
PROVIDERS: ATTEND Physician Assistant
DX: L26 Exfoliative dermatitis (principal); D45 Polycythemia vera; I11.9 Hypertensive heart disease without heart failure; I10 Essential (primary) hypertension

== ENCOUNTER → 2020-09-10 | Outpatient (REF) | payer MEDICARE ==
[~2020-09-10] MED LIST changes: -LISI40TA PO; +LISI40TA4 PO
[2020-09-10 13:37] LABS: BLOOD UREA NITROGEN 14 MG/DL (7-18); CALCIUM LEVEL 9.3 MG/DL (8.5-10.1); CARBON DIOXIDE LEVEL 34 MEQ/L (21-32); CHLORIDE LEVEL 100 MEQ/L (98-107); CREATININE FOR GFR 1.07 MG/DL (0.70-1.30); GLOMERULAR FILTRATION RATE > 60.0 (>56); GLUCOSE, FASTING 146 MG/DL (70-100); POTASSIUM SERUM 4.6 MEQ/L (3.5-5.1); SODIUM LEVEL 136 MEQ/L (136-145)
== END ==
LOC: M SFHCCLAY 08:43
PROVIDERS: ATTEND Family Medicine
DX: R60.0 Localized edema (principal)

== ENCOUNTER → 2020-09-17 | Outpatient (REF) | payer MEDICARE ==
[2020-09-18 12:00] LABS: BLOOD UREA NITROGEN 21 MG/DL (7-18); CALCIUM LEVEL 9.1 MG/DL (8.5-10.1); CARBON DIOXIDE LEVEL 33 MEQ/L (21-32); CHLORIDE LEVEL 97 MEQ/L (98-107); CREATININE FOR GFR 1.09 MG/DL (0.70-1.30); GLOMERULAR FILTRATION RATE > 60.0 (>56); GLUCOSE, FASTING 157 MG/DL (70-100); POTASSIUM SERUM 5.7 MEQ/L (3.5-5.1); SODIUM LEVEL 135 MEQ/L (136-145)
== END ==
LOC: M SFHCCLAY 14:46
PROVIDERS: ATTEND Family Medicine
DX: R60.0 Localized edema (principal); N18.2 Chronic kidney disease, stage 2 (mild)

== ENCOUNTER 2020-09-18 10:10 | Emergency (ER) | payer MEDICARE ==
[~2020-09-18] VITALS: Ht 188 cm; Wt 175.9 kg
[2020-09-18] MEDS ORDERED: ALLO100T PO (10:32)
[2020-09-18] MEDS ORDERED: AMLO1TAB24 PO (10:32)
--- NOTE | 2020-09-18 10:58 | REP ---
INDICATION: CHEST PAIN. COMPARISON: Comparison chest x-ray January 01, 2019. TECHNIQUE: Portable upright AP chest radiograph. FINDINGS: EKG monitoring electrodes are seen. The lungs are symmetrically aerated and clear. Pleural angles are sharp. Heart size is borderline unchanged. Pulmonary vasculature is somewhat cephalized as before. No acute bony abnormality is seen.. IMPRESSION: Borderline heart size. Cephalization. No acute infiltrate.. <Electronically signed by Justus Jeffries > 09/18/20 [id number]
[2020-09-18 11:06] LABS: BASO % 0.3 % (0.0-1.0); EOS # 0.2 10^3/uL (0.0-0.5); EOS % 1.3 % (0.0-3.0); HEMATOCRIT 52.3 % (42.0-52.0); HEMOGLOBIN 17.4 g/dl (13.5-17.5); LYMPH # 1.4 10^3/uL (1.5-5.0); LYMPH % 12.4 % (24.0-44.0); MEAN CORPUSCULAR HEMOGLOBIN 35.6 pg (27.0-33.0); MEAN CORPUSCULAR HGB CONC 33.3 g/dl (32.0-36.5); MONO # 1.1 10^3/uL (0.0-0.8); MONO % 9.5 % (2.0-8.0); NEUTROPHILS # 8.6 10^3/uL (1.5-8.5); NEUTROPHILS % 76.1 % (36.0-66.0); PLATELET COUNT, AUTOMATED 202 10^3/uL (150-450); RED BLOOD COUNT 4.89 10^6/uL (4.30-6.10); WHITE BLOOD COUNT 11.3 10^3/uL (4.0-10.0)
[2020-09-18] MEDS ORDERED: PANTOPRAZOLE 40MG VIAL (C9113 PER 1) IV ONE (11:10)
[2020-09-18 11:18] LABS: ALBUMIN 3.4 GM/DL (3.2-5.2); ALT/SGPT 43 U/L (12-78); BILIRUBIN,DIRECT 0.2 MG/DL (0.0-0.2); BILIRUBIN,TOTAL 0.6 MG/DL (0.2-1.0); ETHYL ALCOHOL (ETHANOL) < 0.003 % (0.000-0.010); LIPASE 55 U/L (73-393); TOTAL PROTEIN 6.8 GM/DL (6.4-8.2)
[2020-09-18] MEDS ORDERED: GI COCKTAIL 50ML BTL(HYOSCYAMINE/MAALOX/LIDOCAINE VISCOUS)(1:3:1) PO ONE (12:30)
[2020-09-18 13:47] VITALS: BP 136/81
--- NOTE | 2020-09-18 21:07 | ECGEPIP ---
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
--- NOTE | 2020-09-18 21:09 | ECGEPIP ---
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
== END 2020-09-18 13:30 | disposition home or self-care (01) ==
LOC: M ED 10:10
DX: K29.20 Alcoholic gastritis without bleeding (principal); I10 Essential (primary) hypertension; F10.10 Alcohol abuse, uncomplicated; E78.5 Hyperlipidemia, unspecified; G47.33 Obstructive sleep apnea (adult) (pediatric); Z79.899 Other long term (current) drug therapy; Z79.01 Long term (current) use of anticoagulants; E66.8 Other obesity
CPT/HCPCS: 71045; 80047; 80076; 82077; 83690; 84484; 85025; 93005; 93041; 94760; 96374; 99285; C9113

== ENCOUNTER → 2020-09-26 | Outpatient (REF) | payer MEDICARE ==
[2020-09-26 18:03] LABS: BLOOD UREA NITROGEN 18 MG/DL (7-18); CALCIUM LEVEL 8.8 MG/DL (8.5-10.1); CARBON DIOXIDE LEVEL 37 MEQ/L (21-32); CHLORIDE LEVEL 95 MEQ/L (98-107); CREATININE FOR GFR 1.02 MG/DL (0.70-1.30); GLOMERULAR FILTRATION RATE > 60.0 (>56); GLUCOSE, FASTING 143 MG/DL (70-100); POTASSIUM SERUM 4.4 MEQ/L (3.5-5.1); SODIUM LEVEL 135 MEQ/L (136-145)
== END ==
LOC: M SFHCCLAY 10:16
PROVIDERS: ATTEND Family Medicine
DX: R60.0 Localized edema (principal)

== ENCOUNTER → 2021-01-30 | Outpatient (REF) | payer MEDICARE | LOC: M LAB REF 13:07 | PROVIDERS: ATTEND Internal Medicine Nephrology | DX: N18.2 Chronic kidney disease, stage 2 (mild) (principal) ==

== ENCOUNTER → 2021-04-24 | Outpatient (REF) | payer MEDICARE ==
[~2021-04-24] MED LIST changes: -KLOR10TA76 PO; +POTA-136 PO
== END ==
LOC: M LAB REF 13:08
PROVIDERS: ATTEND Internal Medicine Nephrology
DX: N18.2 Chronic kidney disease, stage 2 (mild) (principal)

== ENCOUNTER → 2021-07-16 | Outpatient (REF) | payer MEDICARE ==
[~2021-07-16] MED LIST changes: +LOSA100T45 PO; -LOSA100T50 PO; +LOSA50TA28 PO; -LOSA50TA88 PO
[2021-07-16 16:23] LABS: HEMATOCRIT 48.7 % (42.0-52.0); HEMOGLOBIN 15.9 g/dl (13.5-17.5); MEAN CORPUSCULAR HEMOGLOBIN 32.1 pg (27.0-33.0); MEAN CORPUSCULAR HGB CONC 32.6 g/dl (32.0-36.5); MEAN CORPUSCULAR VOLUME 98.2 fl (80.0-96.0); PLATELET COUNT, AUTOMATED 240 10^3/uL (150-450); RED BLOOD COUNT 4.96 10^6/uL (4.30-6.10); WHITE BLOOD COUNT 11.4 10^3/uL (4.0-10.0)
== END ==
LOC: M SFHCCLAY 13:32
PROVIDERS: ATTEND Family Medicine
DX: K13.79 Other lesions of oral mucosa (principal); Z79.01 Long term (current) use of anticoagulants

== ENCOUNTER → 2021-08-19 | Outpatient (REF) | payer MEDICARE ==
[2021-08-19 16:34] LABS: BLOOD UREA NITROGEN 18 MG/DL (7-18); CARBON DIOXIDE LEVEL 32 MEQ/L (21-32); CHLORIDE LEVEL 99 MEQ/L (98-107); CREATININE FOR GFR 1.07 MG/DL (0.70-1.30); GLOMERULAR FILTRATION RATE > 60.0 (>56); GLUCOSE, FASTING 160 MG/DL (70-100); POTASSIUM SERUM 4.5 MEQ/L (3.5-5.1); SODIUM LEVEL 134 MEQ/L (136-145)
== END ==
LOC: M SFHCCLAY 11:56
PROVIDERS: ATTEND Family Medicine
DX: I11.9 Hypertensive heart disease without heart failure (principal)

== ENCOUNTER → 2021-09-25 | Outpatient (REF) | payer MEDICARE ==
[2021-09-25 16:21] LABS: BLOOD UREA NITROGEN 21 MG/DL (7-18); CALCIUM LEVEL 9.2 MG/DL (8.5-10.1); CARBON DIOXIDE LEVEL 37 MEQ/L (21-32); CHLORIDE LEVEL 96 MEQ/L (98-107); CREATININE FOR GFR 1.04 MG/DL (0.70-1.30); GLOMERULAR FILTRATION RATE > 60.0 (>56); GLUCOSE, FASTING 193 MG/DL (70-100); POTASSIUM SERUM 4.4 MEQ/L (3.5-5.1); SODIUM LEVEL 137 MEQ/L (136-145)
== END ==
LOC: M SFHCCLAY 10:26
PROVIDERS: ATTEND Family Medicine
DX: N18.2 Chronic kidney disease, stage 2 (mild) (principal)

== ENCOUNTER → 2021-10-08 | Outpatient (REF) | payer MEDICARE ==
[2021-10-08 16:18] LABS: HEMOGLOBIN A1c 7.8 %
== END ==
LOC: M SFHCCLAY 10:27
PROVIDERS: ATTEND Family Medicine
DX: R73.01 Impaired fasting glucose (principal)

== ENCOUNTER → 2021-11-04 | Outpatient (REF) | payer MEDICARE ==
[2021-11-04 17:52] LABS: BACTERIA, URINE AUTO NEGATIVE (NEGATIVE); RBC, URINE AUTO 10 /HPF (0-3); SQUAMOUS EPITHELIAL CELL UR AU 3 /HPF (0-6); WBC, URINE AUTO 1 /HPF (0-3)
== END ==
LOC: M LAB REF 16:54
PROVIDERS: ATTEND Nurse Practitioner Family
DX: R31.29 Other microscopic hematuria (principal)

== ENCOUNTER → 2021-12-01 | Outpatient (CLI) | payer MEDICARE ==
[~2021-12-01] MED LIST changes: +ISOVUE-370 76% 100ML VIAL As Ordered ONE
== END ==
LOC: M RAD 09:25
PROVIDERS: ATTEND Nurse Practitioner Family
DX: R31.29 Other microscopic hematuria (principal)
CPT/HCPCS: 74178; Q9967

== ENCOUNTER → 2022-01-27 | Outpatient (REF) | payer MEDICARE ==
[~2022-01-27] MED LIST changes: -ISOVUE-370 76% 100ML VIAL As Ordered ONE
[2022-01-27 11:16] LABS: BASO # 0.1 10^3/uL (0.0-0.2); BASO % 0.6 % (0.0-1.0); EOS # 0.3 10^3/uL (0.0-0.5); EOS % 3.2 % (0.0-3.0); HEMATOCRIT 46.1 % (42.0-52.0); HEMOGLOBIN 15.3 g/dl (13.5-17.5); LYMPH # 2.5 10^3/uL (1.5-5.0); LYMPH % 24.2 % (24.0-44.0); MEAN CORPUSCULAR HEMOGLOBIN 32.4 pg (27.0-33.0); MEAN CORPUSCULAR HGB CONC 33.2 g/dl (32.0-36.5); MEAN CORPUSCULAR VOLUME 97.7 fl (80.0-96.0); MONO # 0.7 10^3/uL (0.0-0.8); MONO % 6.9 % (2.0-8.0); NEUTROPHILS # 6.6 10^3/uL (1.5-8.5); NEUTROPHILS % 64.7 % (36.0-66.0); PLATELET COUNT, AUTOMATED 272 10^3/uL (150-450); RED BLOOD COUNT 4.72 10^6/uL (4.30-6.10); WHITE BLOOD COUNT 10.2 10^3/uL (4.0-10.0)
[2022-01-27 12:53] LABS: BLOOD UREA NITROGEN 16 MG/DL (7-18); CALCIUM LEVEL 9.4 MG/DL (8.5-10.1); CARBON DIOXIDE LEVEL 33 MEQ/L (21-32); CHLORIDE LEVEL 96 MEQ/L (98-107); CHOLESTEROL LEVEL 183 MG/DL (<200); CHOLESTEROL RISK RATIO 4.945 (<5); CREATININE FOR GFR 1.12 MG/DL (0.70-1.30); GLOMERULAR FILTRATION RATE > 60.0 (>56); GLUCOSE, FASTING 256 MG/DL (70-100); HDL CHOLESTEROL 37 MG/DL (>40); LDL CHOLESTEROL 94 MG/DL (<100); NON-HDL-C 146 MG/DL; POTASSIUM SERUM 3.9 MEQ/L (3.5-5.1); SODIUM LEVEL 136 MEQ/L (136-145); TRIGLYCERIDES LEVEL 260 MG/DL (<150)
[2022-01-27 13:00] LABS: CREATININE, URINE 15.5 MG/DL; MALB URINE SIEMENS 23.9 MG/L; MAU/CREAT RATIO 154.1 MCG/MG (0.0-30.0)
[2022-01-27 15:18] LABS: HEMOGLOBIN A1c 8.6 %
== END ==
LOC: M SFHCCLAY 08:45
PROVIDERS: ATTEND Family Medicine
DX: E11.9 Type 2 diabetes mellitus without complications (principal); N18.2 Chronic kidney disease, stage 2 (mild); Z13.220 Encounter for screening for lipoid disorders; Z86.2 Personal history of diseases of the blood and blood-forming organs and certain disorders involving the immune mechanism

== ENCOUNTER → 2022-03-05 | Outpatient (REF) | payer MEDICARE ==
[2022-03-05 17:38] LABS: HEMATOCRIT 41.6 % (42.0-52.0); HEMOGLOBIN 13.7 g/dl (13.5-17.5); MEAN CORPUSCULAR HEMOGLOBIN 32.9 pg (27.0-33.0); MEAN CORPUSCULAR HGB CONC 32.9 g/dl (32.0-36.5); PLATELET COUNT, AUTOMATED 224 10^3/uL (150-450); RED BLOOD COUNT 4.16 10^6/uL (4.30-6.10); WHITE BLOOD COUNT 10.6 10^3/uL (4.0-10.0)
[2022-03-05 18:01] LABS: ALBUMIN 2.9 GM/DL (3.2-5.2); ALT/SGPT 35 U/L (12-78); BILIRUBIN,TOTAL 0.3 MG/DL (0.2-1.0); BLOOD UREA NITROGEN 15 MG/DL (7-18); CALCIUM LEVEL 8.4 MG/DL (8.5-10.1); CARBON DIOXIDE LEVEL 29 MEQ/L (21-32); CHLORIDE LEVEL 99 MEQ/L (98-107); CHOLESTEROL LEVEL 182 MG/DL (<200); CHOLESTEROL RISK RATIO 4.789 (<5); CREATININE FOR GFR 0.79 MG/DL (0.70-1.30); GLOMERULAR FILTRATION RATE > 60.0 (>56); GLUCOSE, FASTING 252 MG/DL (70-100); HDL CHOLESTEROL 38 MG/DL (>40); LDL CHOLESTEROL 87 MG/DL (<100); NON-HDL-C 144 MG/DL; POTASSIUM SERUM 4.2 MEQ/L (3.5-5.1); SODIUM LEVEL 133 MEQ/L (136-145); TOTAL PROTEIN 5.8 GM/DL (6.4-8.2); TRIGLYCERIDES LEVEL 287 MG/DL (<150)
== END ==
LOC: M SFHCCLAY 15:08
PROVIDERS: ATTEND Nurse Practitioner Family
DX: N18.2 Chronic kidney disease, stage 2 (mild) (principal); I11.9 Hypertensive heart disease without heart failure

== ENCOUNTER → 2022-07-06 | Outpatient (REF) | payer MEDICARE ==
[2022-07-06 11:56] LABS: HEMATOCRIT 48.8 % (42.0-52.0); HEMOGLOBIN 16.1 g/dl (13.5-17.5); MEAN CORPUSCULAR HEMOGLOBIN 31.5 pg (27.0-33.0); MEAN CORPUSCULAR VOLUME 95.5 fl (80.0-96.0); PLATELET COUNT, AUTOMATED 238 10^3/uL (150-450); RED BLOOD COUNT 5.11 10^6/uL (4.30-6.10); WHITE BLOOD COUNT 9.9 10^3/uL (4.0-10.0)
[2022-07-06 12:25] LABS: ALBUMIN 3.8 G/DL (3.2-5.2); ALKALINE PHOSPHATASE 94 U/L (46-116); ALT/SGPT 39 U/L (7.0-40); AST/SGOT 19 U/L (<34); BILIRUBIN,TOTAL 0.5 MG/DL (0.3-1.2); BLOOD UREA NITROGEN 23 MG/DL (9-23); CALCIUM LEVEL 9.3 MG/DL (8.5-10.1); CARBON DIOXIDE LEVEL 32 MMOL/L (20-31); CHLORIDE LEVEL 96 MMOL/L (98-107); CHOLESTEROL LEVEL 142 MG/DL (<200); CHOLESTEROL RISK RATIO 4.49 (<5); CREATININE FOR GFR 0.98 MG/DL (0.70-1.30); GLOMERULAR FILTRATION RATE > 60.0 (>56); GLUCOSE, FASTING 182 MG/DL (60-100); HDL CHOLESTEROL 31.6 MG/DL (>40); LDL CHOLESTEROL 69.6 MG/DL (<100); NON-HDL-C 110 MG/DL; POTASSIUM SERUM 4.1 MMOL/L (3.5-5.1); SODIUM LEVEL 136 MMOL/L (136-145); TOTAL PROTEIN 6.8 G/DL (5.7-8.2); TRIGLYCERIDES LEVEL 204 MG/DL (<150)
[2022-07-06 12:27] LABS: HEMOGLOBIN A1c 10.9 % (4.0-6.0)
== END ==
LOC: M SFHCCLAY 07:04
PROVIDERS: ATTEND Nurse Practitioner Family
DX: N18.2 Chronic kidney disease, stage 2 (mild) (principal); E11.9 Type 2 diabetes mellitus without complications

== ENCOUNTER → 2022-10-13 | Outpatient (REF) | payer MEDICARE ==
[2022-10-13 12:13] LABS: ALBUMIN 3.9 G/DL (3.2-5.2); ALKALINE PHOSPHATASE 71 U/L (46-116); ALT/SGPT 33 U/L (7.0-40); AST/SGOT 20 U/L (<34); BILIRUBIN,TOTAL 0.5 MG/DL (0.3-1.2); BLOOD UREA NITROGEN 25 MG/DL (9-23); CALCIUM LEVEL 9.3 MG/DL (8.3-10.6); CARBON DIOXIDE LEVEL 31 MMOL/L (20-31); CHLORIDE LEVEL 99 MMOL/L (98-107); CHOLESTEROL LEVEL 135 MG/DL (<200); CHOLESTEROL RISK RATIO 5.01 (<5); CREATININE FOR GFR 0.91 MG/DL (0.70-1.30); GLOMERULAR FILTRATION RATE > 60.0 (>49); GLUCOSE, FASTING 113 MG/DL (74-106); HDL CHOLESTEROL 26.9 MG/DL (>40); LDL CHOLESTEROL 72.9 MG/DL (<100); NON-HDL-C 108.1 MG/DL; POTASSIUM SERUM 3.8 MMOL/L (3.5-5.1); SODIUM LEVEL 137 MMOL/L (136-145); TOTAL PROTEIN 6.7 G/DL (5.7-8.2); TRIGLYCERIDES LEVEL 176 MG/DL (<150)
[2022-10-13 12:25] LABS: HEMOGLOBIN A1c 6.3 % (4.0-6.0)
== END ==
LOC: M SFHCCLAY 07:43
PROVIDERS: ATTEND Nurse Practitioner Family
DX: E11.9 Type 2 diabetes mellitus without complications (principal); E78.5 Hyperlipidemia, unspecified

== ENCOUNTER → 2023-01-29 | Outpatient (REF) | payer MEDICARE ==
[~2023-01-29] MED LIST changes: -LOSA100T45 PO; +LOSA100T46 PO; +SENN-111 PO; -SENN18TA PO
[2023-01-29 17:34] LABS: BASO # 0.1 10^3/uL (0.0-0.2); BASO % 0.4 % (0.0-1.0); EOS # 0.3 10^3/uL (0.0-0.5); EOS % 2.7 % (0.0-3.0); HEMATOCRIT 50.1 % (42.0-52.0); HEMOGLOBIN 16.5 g/dl (13.5-17.5); LYMPH # 2.9 10^3/uL (1.5-5.0); MEAN CORPUSCULAR HEMOGLOBIN 30.9 pg (27.0-33.0); MEAN CORPUSCULAR HGB CONC 32.9 g/dl (32.0-36.5); MEAN CORPUSCULAR VOLUME 93.8 fl (80.0-96.0); MONO # 0.8 10^3/uL (0.0-0.8); MONO % 7.1 % (2.0-8.0); NEUTROPHILS # 7.5 10^3/uL (1.5-8.5); NEUTROPHILS % 64.5 % (36.0-66.0); PLATELET COUNT, AUTOMATED 260 10^3/uL (150-450); RED BLOOD COUNT 5.34 10^6/uL (4.30-6.10); WHITE BLOOD COUNT 11.6 10^3/uL (4.0-10.0)
[2023-01-29 17:59] LABS: THYROID STIMULATING HORMONE 2.28 uIU/ML (0.55-4.78)
[2023-01-29 18:01] LABS: FREE T4 1.1 NG/DL (0.89-1.76)
[2023-01-29 18:03] LABS: ALBUMIN 3.9 G/DL (3.2-5.2); BILIRUBIN,TOTAL 0.3 MG/DL (0.3-1.2); CALCIUM LEVEL 9.1 MG/DL (8.3-10.6); CHOLESTEROL RISK RATIO 4.45 (<5); CREATININE FOR GFR 1.69 MG/DL (0.70-1.30); GLOMERULAR FILTRATION RATE 44.3 (>49); HDL CHOLESTEROL 31.2 MG/DL (>40); LDL CHOLESTEROL 45.2 MG/DL (<100); NON-HDL-C 107.8 MG/DL; POTASSIUM SERUM 4.2 MMOL/L (3.5-5.1); TOTAL PROTEIN 7.1 G/DL (5.7-8.2)
== END ==
LOC: M SFHCCLAY 13:10
PROVIDERS: ATTEND Nurse Practitioner Family
DX: Z01.818 Encounter for other preprocedural examination (principal); B35.4 Tinea corporis; E11.9 Type 2 diabetes mellitus without complications; E78.5 Hyperlipidemia, unspecified; Z87.898 Personal history of other specified conditions; G47.33 Obstructive sleep apnea (adult) (pediatric)

== ENCOUNTER → 2023-03-02 | Outpatient (REF) | payer MEDICARE ==
[2023-03-02 18:04] LABS: BASO % 0.4 % (0.0-1.0); EOS # 0.3 10^3/uL (0.0-0.5); HEMATOCRIT 46.8 % (42.0-52.0); LYMPH # 2.4 10^3/uL (1.5-5.0); LYMPH % 22.7 % (24.0-44.0); MEAN CORPUSCULAR HEMOGLOBIN 30.5 pg (27.0-33.0); MEAN CORPUSCULAR HGB CONC 32.1 g/dl (32.0-36.5); MEAN CORPUSCULAR VOLUME 95.3 fl (80.0-96.0); MONO # 0.9 10^3/uL (0.0-0.8); MONO % 8.7 % (2.0-8.0); NEUTROPHILS % 64.9 % (36.0-66.0); PLATELET COUNT, AUTOMATED 256 10^3/uL (150-450); RED BLOOD COUNT 4.91 10^6/uL (4.30-6.10); WHITE BLOOD COUNT 10.7 10^3/uL (4.0-10.0)
[2023-03-02 18:30] LABS: ALBUMIN 3.9 G/DL (3.2-5.2); ALKALINE PHOSPHATASE 88 U/L (46-116); ALT/SGPT 46 U/L (7.0-40); AST/SGOT 18 U/L (<34); BILIRUBIN,TOTAL 0.3 MG/DL (0.3-1.2); BLOOD UREA NITROGEN 30 MG/DL (9-23); CALCIUM LEVEL 9.4 MG/DL (8.3-10.6); CARBON DIOXIDE LEVEL 31 MMOL/L (20-31); CHLORIDE LEVEL 97 MMOL/L (98-107); CREATININE FOR GFR 1.09 MG/DL (0.70-1.30); GLOMERULAR FILTRATION RATE > 60.0 (>49); GLUCOSE, FASTING 106 MG/DL (74-106); SODIUM LEVEL 137 MMOL/L (136-145); TOTAL PROTEIN 7.2 G/DL (5.7-8.2)
== END ==
LOC: M SFHCCLAY 14:36
PROVIDERS: ATTEND Nurse Practitioner Family
DX: B35.4 Tinea corporis (principal); E11.9 Type 2 diabetes mellitus without complications; E78.5 Hyperlipidemia, unspecified; G47.33 Obstructive sleep apnea (adult) (pediatric); Z87.898 Personal history of other specified conditions

== ENCOUNTER → 2023-06-30 | Outpatient (REF) | payer MEDICARE | LOC: M SFHCCLAY 14:38 | PROVIDERS: ATTEND Physician Assistant | DX: L02.212 Cutaneous abscess of back [any part, except buttock and flank] (principal) ==

== ENCOUNTER → 2023-07-05 | Outpatient (REF) | payer MEDICARE ==
[2023-07-05 19:04] LABS: BASO % 0.7 % (0.0-1.0); EOS # 0.1 10^3/uL (0.0-0.5); EOS % 1.5 % (0.0-3.0); HEMATOCRIT 48.5 % (42.0-52.0); HEMOGLOBIN 16.2 g/dl (13.5-17.5); LYMPH # 1.4 10^3/uL (1.5-5.0); LYMPH % 22.7 % (24.0-44.0); MEAN CORPUSCULAR HEMOGLOBIN 31.3 pg (27.0-33.0); MEAN CORPUSCULAR HGB CONC 33.4 g/dl (32.0-36.5); MEAN CORPUSCULAR VOLUME 93.6 fl (80.0-96.0); MONO # 0.9 10^3/uL (0.0-0.8); MONO % 14.8 % (2.0-8.0); NEUTROPHILS # 3.6 10^3/uL (1.5-8.5); PLATELET COUNT, AUTOMATED 238 10^3/uL (150-450); RED BLOOD COUNT 5.18 10^6/uL (4.30-6.10)
[2023-07-05 19:27] LABS: ALBUMIN 3.8 G/DL (3.2-5.2); ALKALINE PHOSPHATASE 83 U/L (46-116); ALT/SGPT 57 U/L (7.0-40); AST/SGOT 32 U/L (<34); BILIRUBIN,TOTAL 0.2 MG/DL (0.3-1.2); BLOOD UREA NITROGEN 23 MG/DL (9-23); CALCIUM LEVEL 8.6 MG/DL (8.3-10.6); CARBON DIOXIDE LEVEL 26 MMOL/L (20-31); CHLORIDE LEVEL 99 MMOL/L (98-107); CREATININE FOR GFR 0.95 MG/DL (0.70-1.30); GLOMERULAR FILTRATION RATE > 60.0 (>49); GLUCOSE, FASTING 185 MG/DL (74-106); POTASSIUM SERUM 3.9 MMOL/L (3.5-5.1); SODIUM LEVEL 134 MMOL/L (136-145); TOTAL PROTEIN 6.7 G/DL (5.7-8.2)
[2023-07-05 19:28] LABS: FREE T4 0.82 NG/DL (0.89-1.76); THYROID STIMULATING HORMONE 0.984 uIU/ML (0.55-4.78)
[2023-07-05 19:38] LABS: RSV AMPLIFICATION NEGATIVE (NEGATIVE)
== END ==
LOC: M SFHCCLAY 13:52
PROVIDERS: ATTEND Physician Assistant
DX: R25.1 Tremor, unspecified (principal)

== ENCOUNTER → 2023-10-19 | Outpatient (REF) | payer MEDICARE ==
[2023-10-19 18:37] LABS: ALBUMIN 4.1 G/DL (3.2-5.2); ALKALINE PHOSPHATASE 93 U/L (46-116); ALT/SGPT 75 U/L (7.0-40); AST/SGOT 44 U/L (<34); BILIRUBIN,TOTAL 0.5 MG/DL (0.3-1.2); BLOOD UREA NITROGEN 21 MG/DL (9-23); CALCIUM LEVEL 9.7 MG/DL (8.3-10.6); CARBON DIOXIDE LEVEL 31 MMOL/L (20-31); CHLORIDE LEVEL 97 MMOL/L (98-107); CHOLESTEROL LEVEL 173 MG/DL (<200); CHOLESTEROL RISK RATIO 4.35 (<5); CREATININE FOR GFR 0.97 MG/DL (0.70-1.30); GLOMERULAR FILTRATION RATE > 60.0 (>49); GLUCOSE, FASTING 133 MG/DL (74-106); HDL CHOLESTEROL 39.7 MG/DL (>40); LDL CHOLESTEROL 98.1 MG/DL (<100); NON-HDL-C 133.3 MG/DL; POTASSIUM SERUM 4.3 MMOL/L (3.5-5.1); SODIUM LEVEL 136 MMOL/L (136-145); TOTAL PROTEIN 7.2 G/DL (5.7-8.2); TRIGLYCERIDES LEVEL 176 MG/DL (<150)
[2023-10-19 18:46] LABS: HEMOGLOBIN A1c 5.7 % (4.0-6.0)
== END ==
LOC: M SFHCCAPE 10:04
PROVIDERS: ATTEND Nurse Practitioner Family
DX: G47.33 Obstructive sleep apnea (adult) (pediatric) (principal); I11.9 Hypertensive heart disease without heart failure; E66.01 Morbid (severe) obesity due to excess calories; N18.2 Chronic kidney disease, stage 2 (mild); E11.9 Type 2 diabetes mellitus without complications; E78.5 Hyperlipidemia, unspecified

== ENCOUNTER → 2023-12-07 | Outpatient (CLI) | payer MEDICARE | LOC: M CLY 10:37 | PROVIDERS: ATTEND Nurse Practitioner Family | DX: M75.32 Calcific tendinitis of left shoulder (principal); M19.012 Primary osteoarthritis, left shoulder ==

== ENCOUNTER → 2024-01-05 | Outpatient (REF) | payer MEDICARE ==
[2024-01-05 17:12] LABS: ALBUMIN 3.9 G/DL (3.2-5.2); ALKALINE PHOSPHATASE 105 U/L (46-116); ALT/SGPT 113 U/L (7.0-40); AST/SGOT 51 U/L (<34); BILIRUBIN,TOTAL 0.5 MG/DL (0.3-1.2); BLOOD UREA NITROGEN 34 MG/DL (9-23); CALCIUM LEVEL 10.2 MG/DL (8.3-10.6); CARBON DIOXIDE LEVEL 31 MMOL/L (20-31); CHLORIDE LEVEL 101 MMOL/L (98-107); CHOLESTEROL LEVEL 174 MG/DL (<200); CHOLESTEROL RISK RATIO 4.33 (<5); CREATININE FOR GFR 1.15 MG/DL (0.70-1.30); GLOMERULAR FILTRATION RATE > 60.0 (>49); GLUCOSE, FASTING 122 MG/DL (74-106); HDL CHOLESTEROL 40.1 MG/DL (>40); LDL CHOLESTEROL 112.5 MG/DL (<100); NON-HDL-C 133.9 MG/DL; POTASSIUM SERUM 4.5 MMOL/L (3.5-5.1); SODIUM LEVEL 139 MMOL/L (136-145); TOTAL PROTEIN 7.4 G/DL (5.7-8.2); TRIGLYCERIDES LEVEL 107 MG/DL (<150)
[2024-01-05 20:12] LABS: HEMOGLOBIN A1c 5.6 % (4.0-6.0)
== END ==
LOC: M SFHCCLAY 11:57
PROVIDERS: ATTEND Nurse Practitioner Family
DX: E78.5 Hyperlipidemia, unspecified (principal); E11.9 Type 2 diabetes mellitus without complications; N18.2 Chronic kidney disease, stage 2 (mild); E66.01 Morbid (severe) obesity due to excess calories; Z87.898 Personal history of other specified conditions

== ENCOUNTER → 2024-04-18 | Outpatient (REF) | payer MEDICARE ==
[~2024-04-18] MED LIST changes: -SENN-111 PO; +SENN-165 PO
[2024-04-18 19:52] LABS: HEMOGLOBIN A1c 5.5 % (4.0-6.0)
[2024-04-18 19:55] LABS: ALBUMIN 3.4 G/DL (3.2-5.2); ALKALINE PHOSPHATASE 119 U/L (46-116); ALT/SGPT 195 U/L (7.0-40); AST/SGOT 75 U/L (<34); BILIRUBIN,TOTAL 0.4 MG/DL (0.3-1.2); BLOOD UREA NITROGEN 27 MG/DL (9-23); CALCIUM LEVEL 9.7 MG/DL (8.3-10.6); CARBON DIOXIDE LEVEL 31 MMOL/L (20-31); CHLORIDE LEVEL 102 MMOL/L (98-107); CHOLESTEROL LEVEL 213 MG/DL (<200); CHOLESTEROL RISK RATIO 6.98 (<5); CREATININE FOR GFR 1.11 MG/DL (0.70-1.30); GLOMERULAR FILTRATION RATE > 60.0 (>49); GLUCOSE, FASTING 102 MG/DL (74-106); HDL CHOLESTEROL 30.5 MG/DL (>40); LDL CHOLESTEROL 148.3 MG/DL (<100); MAGNESIUM LEVEL 1.9 MG/DL (1.8-2.4); NON-HDL-C 182.5 MG/DL; POTASSIUM SERUM 4.4 MMOL/L (3.5-5.1); SODIUM LEVEL 138 MMOL/L (136-145); TOTAL PROTEIN 6.8 G/DL (5.7-8.2); TRIGLYCERIDES LEVEL 171 MG/DL (<150)
== END ==
LOC: M SFHCCLAY 13:37
PROVIDERS: ATTEND Nurse Practitioner Family
DX: E11.9 Type 2 diabetes mellitus without complications (principal); G47.33 Obstructive sleep apnea (adult) (pediatric); Z87.898 Personal history of other specified conditions; E78.5 Hyperlipidemia, unspecified

== ENCOUNTER → 2024-04-21 | Outpatient (REF) | payer MEDICARE ==
[2024-04-21 20:10] LABS: HEPATITIS B SURFACE ANTIGEN NEGATIVE (NEGATIVE)
[2024-04-21 20:32] LABS: HEPATITIS B CORE ANTIBODY IGM NEGATIVE (NEGATIVE)
[2024-04-24 14:28] LABS: HCV RNA QUANTITATION <15 NOT DETECTED IU/mL (NOT DETECTED); HCV RNA log10 <1.18 NOT DETECTED Log IU/mL (NOT DETECTED)
== END ==
LOC: M SFHCCLAY 11:42
PROVIDERS: ATTEND Nurse Practitioner Family
DX: Z01.89 Encounter for other specified special examinations (principal); R74.8 Abnormal levels of other serum enzymes

== ENCOUNTER → 2024-07-17 | Outpatient (CLI) | payer MEDICARE ==
[~2024-07-17] MED LIST changes: +PROHANCE 279.3MG/ML 15ML VIAL ONE; +PROHANCE 279.3MG/ML 5ML VIAL ONE
== END ==
LOC: M PLAIMG 12:53
PROVIDERS: ATTEND Internal Medicine Hematology & Oncology
DX: C22.0 Liver cell carcinoma (principal); R16.0 Hepatomegaly, not elsewhere classified; K76.89 Other specified diseases of liver; K80.20 Calculus of gallbladder without cholecystitis without obstruction
CPT/HCPCS: 74183; A9576

== ENCOUNTER → 2024-08-25 | Outpatient (REF) | payer MEDICARE ==
[~2024-08-25] MED LIST changes: -PROHANCE 279.3MG/ML 15ML VIAL ONE; -PROHANCE 279.3MG/ML 5ML VIAL ONE
[2024-08-25 12:33] LABS: BLOOD UREA NITROGEN 29 MG/DL (9-23); CALCIUM LEVEL 9.2 MG/DL (8.3-10.6); CARBON DIOXIDE LEVEL 29 MMOL/L (20-31); CHLORIDE LEVEL 102 MMOL/L (98-107); GLOMERULAR FILTRATION RATE > 60.0 (>49); GLUCOSE, FASTING 123 MG/DL (74-106); POTASSIUM SERUM 4.3 MMOL/L (3.5-5.1); SODIUM LEVEL 137 MMOL/L (136-145)
== END ==
LOC: M LABDRAWC 11:17
PROVIDERS: ATTEND Psychiatry & Neurology Child & Adolescent Psychiatry
DX: C22.0 Liver cell carcinoma (principal)

== ENCOUNTER → 2025-01-25 | Outpatient (CLI) | payer MEDICARE ==
[~2025-01-25] MED LIST changes: +LISI40TA10 PO; -LISI40TA4 PO; +PROHANCE 279.3MG/ML 15ML VIAL ONE; +PROHANCE 279.3MG/ML 5ML VIAL ONE
== END ==
LOC: M PLAIMG 12:04
PROVIDERS: ATTEND Internal Medicine Hematology & Oncology
DX: I69.922 Dysarthria following unspecified cerebrovascular disease (principal); Z85.05 Personal history of malignant neoplasm of liver; G31.9 Degenerative disease of nervous system, unspecified; R90.82 White matter disease, unspecified; J01.20 Acute ethmoidal sinusitis, unspecified; J34.2 Deviated nasal septum
CPT/HCPCS: 70553; A9576

== ENCOUNTER → 2025-04-12 | Outpatient (REF) | payer MEDICARE ==
[~2025-04-12] MED LIST changes: -PROHANCE 279.3MG/ML 15ML VIAL ONE; -PROHANCE 279.3MG/ML 5ML VIAL ONE
[2025-04-12 20:01] LABS: BASO # 0.1 10^3/uL (0.0-0.2); BASO % 0.9 % (0.0-1.0); EOS # 0.4 10^3/uL (0.0-0.5); EOS % 4.3 % (0.0-3.0); LYMPH # 2.2 10^3/uL (1.5-5.0); LYMPH % 24.8 % (24.0-44.0); MONO # 0.6 10^3/uL (0.0-0.8); MONO % 6.4 % (2.0-8.0); NEUTROPHILS # 5.6 10^3/uL (1.5-8.5); NEUTROPHILS % 63.3 % (36.0-66.0); PLATELET COUNT, AUTOMATED 234 10^3/uL (150-450)
[2025-04-12 20:07] LABS: FREE T4 0.98 NG/DL (0.89-1.76)
[2025-04-12 20:08] LABS: ALT/SGPT 116.0 U/L (7.0-40); AST/SGOT 105.0 U/L (<34); CALCIUM LEVEL 9.4 MG/DL (8.3-10.6); CARBON DIOXIDE LEVEL 29.0 MMOL/L (20-31); CHLORIDE LEVEL 100.0 MMOL/L (98-107); CHOLESTEROL LEVEL 161.0 MG/DL (<200); CHOLESTEROL RISK RATIO 3.46 (<5); CREATININE FOR GFR 1.1 MG/DL (0.70-1.30); GLOMERULAR FILTRATION RATE 75.9 (>49); LDL CHOLESTEROL 82.6 MG/DL (<100); MAGNESIUM LEVEL 1.8 MG/DL (1.8-2.4); NON-HDL-C 114.6 MG/DL; POTASSIUM SERUM 4.3 MMOL/L (3.5-5.1); SODIUM LEVEL 142.0 MMOL/L (136-145); TRIGLYCERIDES LEVEL 160.0 MG/DL (<150)
[2025-04-12 20:25] LABS: ESTIMATED AVERAGE GLUCOSE 114.0 MG/DL (60-110)
== END ==
LOC: M SFHCCLAY 13:40
PROVIDERS: ATTEND Nurse Practitioner Family
DX: C22.0 Liver cell carcinoma (principal); E78.5 Hyperlipidemia, unspecified; E11.9 Type 2 diabetes mellitus without complications; N18.2 Chronic kidney disease, stage 2 (mild); E66.01 Morbid (severe) obesity due to excess calories; Z87.898 Personal history of other specified conditions; I10 Essential (primary) hypertension; I81 Portal vein thrombosis; K74.60 Unspecified cirrhosis of liver; D75.1 Secondary polycythemia; G47.33 Obstructive sleep apnea (adult) (pediatric); E83.42 Hypomagnesemia

== ENCOUNTER → 2025-04-25 | Outpatient (CLI) | payer MEDICARE ==
[~2025-04-25] MED LIST changes: +GADOXETATE DISODIUM 2.5 MMOL/10 ML VIAL ONE
== END ==
LOC: M PLAIMG 09:27
PROVIDERS: ATTEND Internal Medicine Hematology & Oncology
DX: C22.8 Malignant neoplasm of liver, primary, unspecified as to type (principal); I81 Portal vein thrombosis
CPT/HCPCS: 74183; A9581